=== PATIENT | female | born 1955 | race Caucasian/White ===

== ENCOUNTER 2019-12-31 04:07 | Inpatient (IN) | payer MEDICARE, SELFPAY ==
[2019-12-31] VITALS (14 sets, daily range): BP systolic 95–113; BP diastolic 52–66; PULSE 63–89; RESP 18–26; TEMP 36.2–38.1; O2SAT 82–100; BMI 30.5
--- NOTE | ~2019-12-31 | XR_ITS ---
EXAMINATION: XR chest 1V portable DATE: 01/01/2020 08:44 INDICATION: Shortness of breath. COVID-19 pneumonia. TECHNIQUE: A single frontal view of the chest was obtained. COMPARISON: Chest single view 12/31/2019 FINDINGS: There are patchy airspace opacities in all lung zones with a lower lung predominance. A guillermo cified right lung nodule is consistent with old granulomatous disease. No pleural effusion or pneumot horax. The heart size is normal. IMPRESSION: 1. Diffuse lung disease with worsening in right upper lung zone, consistent with pneumonia. Reviewed, dictated and finalized at location A. IMPRESSION: 1. Diffuse lung disease with worsening in right upper lung zone, consistent wit h pneumonia.
--- NOTE | ~2019-12-31 | XR_ITS ---
XR chest 1V portable DATE: 01/04/2020 05:48 INDICATION: Covid 19 pneumonia TECHNIQUE: Portable AP chest on 01/04/2020 at 0522 hours COMPARISON: 01/01/2020 portable AP chest at 0840 hours FINDINGS: There are patchy infiltrates in the mid and particularly lower lung zones, right greater th an left, mildly increased since 01/01/2020. Normal heart size. Aortic calcification and unfolding. IMPRESSION: Mild increased patchy bilateral primarily mid and lower lung infiltrates since 01/01/2020 Reviewed, dictated and finalized at location A. IMPRESSION: Mild increased patchy bilateral primarily mid and lower lung infilt rates since 01/01/2020
--- NOTE | ~2019-12-31 | XR_ITS ---
XR chest 1V portable DATE: 12/31/2019 04:47 INDICATION: Cough, fever TECHNIQUE: Portable AP chest on 12/31/2019 at 0447 hours COMPARISON: None FINDINGS: Heart size is normal. There are mild patchy infiltrates in the mid and lower lung zones. No pleural effusion. Pulmonary vascularity is within normal range. No pneumothorax. There is aortic arch calcification and mild aortic unfolding. No hilar or mediastinal enlargement. Diffuse osteopenia. IMPRESSION: Mild patchy infiltrate in the mid and lower lung zones Reviewed, dictated and finalized at location A.
--- NOTE | 2019-12-31 04:29 | ECG_ITS ---
Measurements Intervals [place] Rate: 72 P: 0 CO: 151 QRS: 30 QRSD: 110 T: -74 QT: 341 QTc: 374 Interpretive Statements SINUS RHYTHM NONSPECIFIC ST & T-WAVE ABNORMALITY- DIFFUSE LEADS BASELINE ARTIFACT- I, II, AVR, AVL, AVF, V1, V4-V6 BORDERLINE ECG Electronically Signed On 12-31-2019 7:06:37 CDT by Iron Guillen D.O.
[2019-12-31 04:47] LABS: Hematocrit 39.5 % (37.0-47.0); Hemoglobin 13.5 g/dL (12.0-15.0); Immature Granulocyte Absolute 0.04 K/mm3 (0.00-0.031); Immature Granulocyte Percent A 0.5 % (0-0.5); Lymphocytes Absolute Auto 0.77 K/mm3 (0.9-3.2); Mean Corpuscular HGB Conc 34.2 g/dl (32-36); Mean Corpuscular Hemoglobin 28.8 pg (26-34); Mean Corpuscular Volume 84.4 fl (80-100); Mean Platelet Volume 10.8 fl (7.4-10.4); Monocytes Absolute Auto 0.3 K/mm3 (0.1-0.6); Monocytes Percent Auto 4.3 % (2.6-8.5); Neutrophils Absolute Auto 6.6 K/mm3 (1.3-6.7); Neutrophils Percent Auto 85.2 % (45.5-73.1); Platelet Count Result 151 k/mm3 (150-375); Red Blood Count 4.68 M/mm3 (4.2-5.4); Red Cell Distribution Width 13.8 % (11.5-14.5); White Blood Count 7.7 K/mm3 (4.5-10.0)
[2019-12-31] MEDS: SODIUM CHLORIDE 0.9% IV 1,000 ML 999 ML IV CONT ×2 (04:53→06:04)
[2019-12-31 04:59] LABS: INR 1.1; Prothrombin Time 14.1 Seconds (11.1-14.7)
[2019-12-31 05:00] LABS: Partial Thromboplastin Time 34.9 SECONDS (22.3-36.8)
--- NOTE | 2019-12-31 05:08 | PC.NURSE ---
Pt. o2 dropped to 89% on RA. This RN placed pt. on 2L nc. ERP notified.
--- NOTE | 2019-12-31 05:10 | ED.FEVER ---
HPI - Fever General Chief Complaint: Fever Stated Complaint: fever,weakness, fatigue Time Seen by Provider: 12/31/19 04:26 Source: RN notes reviewed History of Present Illness HPI Narrative: Patient presents emergency department from home for multiple complaints. Patient states she began to feel ill on 12/21/2019. She states she is had a fever up to 101 Fahrenheit has been associated with dry heaves and diarrhea. She states she has had a mild cough has been nonproductive. She denies having any rhinorrhea sore throat chest pain shortness of breath abdominal pain or any other symptoms. Patient states that her tested positive for COVID-19 approximately 1 week ago. Denies any other symptoms at this time Related Data Home Medications Medication Instructions Recorded Confirmed citalopram mg 12/31/19 indapamide mg 12/31/19 Allergies Allergy/AdvReac Type Severity Reaction Status Date / Time erythromycin base Allergy Unknown SICK TO Verified 12/31/19 04:14 STOMACH Review of Systems Review of Systems: Narrative: Gen.: See HPI Eyes: Denies eye pain or visual change ENT: Denies congestion Respiratory: Denies shortness of breath reports cough CV: Denies chest pain or palpitations GI: Denies abdominal pain reports nausea vomiting diarrhea Musculoskeletal: Denies back pain or muscle pain Neuro: Denies numbness, tingling, reports weakness Skin: Denies rash Except as documented, all other systems reviewed and negative [facility] Past Medical History Medical History (Updated 12/31/19 @ 05:33 by Abilio Bae DO) Hypertension Social History Social History (Updated 12/31/19 @ 05:29 by Abilio Bae DO) Smoking status: Never smoker Exam Narrative: Exam Narrative: APPEARANCE: No acute distress, nontoxic, resting in bed EYES: EOMI HEENT: Normocephalic, atraumatic, OMM RESPIRATORY: No respiratory distress crackles bilateral lung bases no wheezing or rales CARDIOVASCULAR: Regular rate and rhythm without murmurs rubs or gallops. ABDOMINAL: Soft, nontender, nondistended, no rebound or guarding MUSCULOSKELETAl: Moves all extremities. No clubbing, cyanosis or edema. NEURO: Awake and alert. Following commands, speech normal, no focal deficits SKIN:: Warm, dry. No rashes lesions or abrasions PSYCHIATRIC: Normal affect/mood, Course Vital Signs Vital signs: Vital Signs Temperature 97.2 F L 12/31/19 04:11 Pulse Rate 75 12/31/19 04:11 Respiratory Rate 20 12/31/19 04:11 Blood Pressure 101/59 L 12/31/19 04:11 Pulse Oximetry 94 12/31/19 04:11 Temperature 97.2 F L 12/31/19 04:11 Pulse Rate 69 12/31/19 05:27 Respiratory Rate 21 H 12/31/19 05:27 Blood Pressure 99/52 L 12/31/19 05:27 Pulse Oximetry 95 12/31/19 05:27 MDM - Fever Lab Data Result diagrams: 12/31/19 04:38 12/31/19 04:38 Labs: Lab Results 12/31/19 12/31/19 12/31/19 Range/Units 04:38 04:38 04:38 WBC 7.7 (4.5-10.0) K/mm3 RBC 4.68 (4.2-5.4) M/mm3 Hgb 13.5 (12.0-15.0) g/dL Hct 39.5 (37.0-47.0) % MCV 84.4 (80-100) fl MCH 28.8 (26-34) pg MCHC 34.2 (32-36) g/dl RDW 13.8 (11.5-14.5) % Plt Count 151 (150-375) k/mm3 MPV 10.8 H (7.4-10.4) fl Immature Gran % (Auto) 0.5 (0-0.5) % Neut % (Auto) 85.2 H (45.5-73.1) % Lymph % (Auto) 10.0 L (18.3-44.2) % [place] % (Auto) 4.3 (2.6-8.5) % Eos % (Auto) 0.0 (0-4.4) % Baso % (Auto) 0.0 L (0.2-1.2) % Lymph # (Auto) 0.77 L (0.9-3.2) K/mm3 [place] # (Auto) 0.3 (0.1-0.6) K/mm3 Eos # (Auto) 0.0 (0-0.3) K/mm3 Baso # (Auto) 0.0 (0.0-0.1) K/mm3 Abs Immat Gran (auto) 0.04 H (0.00-0.031) K/mm3 Absolute Neuts (auto) 6.6 (1.3-6.7) K/mm3 Absolute Nucleated RBC 0.0 (0.0-0.012) K/mm3 Nucleated RBC % 0.0 (0.0-0.2) % PT 14.1 (11.1-14.7) Seconds INR 1.1 APTT 34.9 (22.3-36.8) SECONDS Sodium 132 L (137-145) mmol/L Potassium
[2019-12-31 05:15] LABS: Add Urine Microscopic? YES; Appearance Urine Cloudy (Clear); Bacteria Urine Trace /hpf; Bilirubin Urine Negative (Negative); Blood Urine Negative (Negative); Color Urine Yellow (Yellow); Glucose Urine UA Negative (Negative); Hyaline Casts Urine 50+ /lpf; Ketones Urine Negative (Negative); Leukocyte Esterase Ur Negative LEU/UL (Negative); Mucus Urine Moderate /lpf; Nitrate Urine Negative (Negative); Protein Urine 2+ mg/dL (Negative); Specific Grav Ur 1.024 (1.001-1.035); Squamous Epithelial Cell Urine Occasional /hpf (Few)
[2019-12-31 05:20] LABS: Alanine Aminotransferase 52 U/L (4-35); Albumin Level 4.2 g/dL (3.5-5.1); Alkaline Phosphatase 118 U/L (38-126); Anion Gap 15 mmol/L (8-16); Aspartate Amino Transferase 106 U/L (14-36); Bilirubin,Total 0.7 mg/dL (0.2-1.3); Blood Urea Nitrogen 37 mg/dL (7-17); Calcium 9.3 mg/dL (8.4-10.2); Carbon Dioxide 27 mmol/L (22-30); Chloride 90 mmol/L (98-107); Estimated CRCL calculation 46 ml/min; Estimated Glomerular Filt Rate 50; Glucose 154 mg/dL (65-105); Potassium 2.1 mmol/L (3.4-5.0); Sodium 132 mmol/L (137-145)
--- NOTE | 2019-12-31 05:27 | PC.NURSE ---
Added on magnesium to the lab
[2019-12-31 05:29] LABS: Lactic Acid Reflex 1.8 mmol/L (0.7-2.1)
[2019-12-31] MEDS: POTASSIUM CHLORIDE 20 MEQ TABLET 40 MEQ PO ×4 (06:03→21:25)
[2019-12-31 06:08] LABS: Alveolar/Arterial O2 Gradient 100.7 mmHg; Base Excess ABG 1.5 mEq/l (+/-2.0); Fractional Inspired Oxygen 28 %; HCO3 ABG 23.5 mEq/l (22.0-26.0); Oxygen Content ABG 15.9 %vol (16.0-22.0); Oxygen Saturation ABG 94.7 % (95.0-100.0); Oxyhemoglobin 91.6 % THb (90.0-100.0); PCO2 ABG 29.5 mmHg (35.0-45.0); PO2 ABG 64.1 mmHg (80.0-100.0); PO2 FiO2 Ratio Arterial Blood 2.29 %; Total Hemoglobin 12.3 g/dL (12.0-18.0)
[2019-12-31 06:09] LABS: Device NASAL CANNULA; Site Drawn RIGHT BRACHIAL
--- NOTE | 2019-12-31 06:40 | PC.NURSE ---
This patient, Fallon Avilez, was admitted to 3 [facility] Surg Room 330-01. Patient/family oriented to hospital policies and general routines including ID bracelet, bed and alarms, visiting hours, pain management, procedures, bathroom and other care routines, personal items, smoking policy, room service/diet, and visiting hours. Information on how to activate the Rapid Response Team has been discussed. Patient/Family are encouraged to report perceived risks to care and to ask questions if they do not understand what they are told or what they should do.
[2019-12-31] MEDS: SODIUM CHLORIDE 0.9% IV 1,000 ML 80 ML IV CONT (08:25)
[2019-12-31 10:00] LABS: Anion Gap 11 mmol/L (8-16); Blood Urea Nitrogen 26 mg/dL (7-17); Calcium 7.8 mg/dL (8.4-10.2); Carbon Dioxide 25 mmol/L (22-30); Chloride 98 mmol/L (98-107); Estimated CRCL calculation 63 ml/min; Estimated Glomerular Filt Rate > 60; Glucose 216 mg/dL (65-105); Potassium 2.6 mmol/L (3.4-5.0); Sodium 134 mmol/L (137-145)
[2019-12-31 11:16] LABS: SARS-CoV-2 RNA PCR Positive
--- NOTE | 2019-12-31 13:15 | PM.IMHP ---
H&P: HPI History of Present Illness Date/Time: 12/31/19 13:15 Chief complaint: covid 19 suspected,hypokalemia,hypoxia,nausea and Narrative: Date of visit 1029. Fallon Avilez is a 64 year old hypertensive female who presented to the emergency room with complaints of malaise recurrent nausea and vomiting diarrhea. She had started having symptoms on the 16 and had temperature 101. Her had tested positive for COVID and had not really been ill. they think they contracted it from one of their employees. she has had no recent travel and has not eaten anything unusual or different. No hematochezia or hematemesis. She has never had a colonoscopy. she is not really had any abdominal pain. rare cough and no appetite but no but no real loss of taste or smell Review of Systems Review of Systems: Narrative: constitutional prior to present illness appetite had been good and she had purposely lost about 10 lb over the last 6 months eye no double vision or scotoma CV no chest pain or palpitation pulmonary no shortness breath wheezing minimal rare cough extremities no particular joint discomfort integument no skin breakdown rashes no dysuria no hematuria GI as per history of present illness neuropsych no seizures no syncope PMFSH Past Medical History Medical History (Updated 12/31/19 @ 13:26 by Fredi Campbell MD) Hypertension Family History Family History (Updated 12/31/19 @ 13:25 by Fredi Campbell MD) Father , at age 76 Acute myocardial infarction Mother , at age 84 with respiratory failure post rib fracture post fall No problems noted. Social History Social History (Updated 12/31/19 @ 13:26 by Fredi Campbell MD) Social History: lives with her and and as below never smoked and no occupational exposure 3 children living well Smoking status: Never smoker Second hand tobacco smoke exposure: No Alcohol intake: never Substance use: never Gender identity (if verbalized by the patient): Female Sexual Orientation (if Verbalized by the Patient): Straight or Heterosexual Spiritual care concerns: No Meds Home Medications and Allergies Home Medications Medication Instructions Recorded Confirmed Type citalopram 40 mg PO DAILY 12/31/19 12/31/19 History indapamide 2.5 mg PO DAILY 12/31/19 12/31/19 History Allergies Allergy/AdvReac Type Severity Reaction Status Date / Time erythromycin base Allergy Unknown SICK TO Verified 12/31/19 04:14 STOMACH Vital Signs Vital Signs - 24 hr 12/31/19 04:11 12/31/19 05:09 12/31/19 05:27 Temperature 36.2 C L Pulse Rate 75 69 Respiratory Rate 20 26 H 21 H Blood Pressure 101/59 L 99/52 L Pulse Oximetry 94 93 95 12/31/19 06:08 12/31/19 06:25 12/31/19 06:40 Temperature 36.7 C Pulse Rate 65 69 68 Respiratory Rate 22 H 24 H 20 Blood Pressure 99/66 L 106/53 L 95/65 L Pulse Oximetry 95 96 100 12/31/19 08:00 12/31/19 08:26 12/31/19 11:08 Temperature 36.3 C L Pulse Rate 71 68 Respiratory Rate 18 20 Blood Pressure 113/58 L Pulse Oximetry 92 100 93 12/31/19 12:00 Temperature 36.3 C L Pulse Rate 66 Respiratory Rate 20 Blood Pressure 105/53 L Pulse Oximetry 93 H&P: Results Labs Labs: Short CBC 12/31/19 Range/Units 04:38 WBC 7.7 (4.5-10.0) K/mm3 Hgb 13.5 (12.0-15.0) g/dL Hct 39.5 (37.0-47.0) % Plt Count 151 (150-375) k/mm3 [facility] 12/31/19 12/31/19 04:38 09:31 Sodium 132 L 134 L Potassium 2.1 L* 2.6 L* Chloride 90 L 98 Carbon Dioxide 27 25 BUN 37 H 26 H D Creatinine 1.10 H 0.80 Glucose 154 H 216 H Calcium 9.3 7.8 L Liver Function 12/31/19 Range/Units 04:38 Total Bilirubin 0.7 (0.2-1.3) mg/dL AST 106 H (14-36) U/L ALT 52 H (4-35) U/L Alkaline Phosphatase 118 (38-126) U/L Albumin 4.2 (3.5-5.1) g/dL Urine 12/31/19 Range/Units 05:00 Urine Color Y
[2019-12-31] MEDS: REMDESIVIR 200 MG/NS 250 ML 200 MG/250 ML BAG 250 MG IVPB (15:40)
[2019-12-31] MEDS: DEXAMETHASONE 2 MG TABLET 6 MG PO (15:40)
[2019-12-31 17:24] LABS: D Dimer 1.41 ug/mL (<0.48)
[2019-12-31 17:37] LABS: Anion Gap 9 mmol/L (8-16); Blood Urea Nitrogen 21 mg/dL (7-17); Calcium 8.3 mg/dL (8.4-10.2); Carbon Dioxide 28 mmol/L (22-30); Chloride 99 mmol/L (98-107); Estimated CRCL calculation 63 ml/min; Estimated Glomerular Filt Rate > 60; Glucose 114 mg/dL (65-105); Lactate Dehydrogenase 899 U/L (313-618); Potassium 2.9 mmol/L (3.4-5.0); Sodium 136 mmol/L (137-145)
[2019-12-31 17:51] LABS: CRP 18.1 mg/dL (<1.0)
[2019-12-31] MEDS: SODIUM CHLORIDE 0.9% IV 1,000 ML 40 ML IV CONT (19:27)
[2019-12-31] MEDS: ENOXAPARIN 40 MG/0.4 ML SYRINGE SUB-Q (21:25)
[2019-12-31] MEDS: ACETAMINOPHEN 325 MG TABLET 650 MG PO (22:38)
[2020-01-01] VITALS (8 sets, daily range): BP systolic 96–110; BP diastolic 42–57; PULSE 42–55; RESP 16–20; TEMP 35.9–37.2; O2SAT 90–95
[2020-01-01] MEDS: SODIUM CHLORIDE 0.9% IV 1,000 ML 40 ML IV CONT (00:56)
[2020-01-01 06:37] LABS: Hematocrit 34.2 % (37.0-47.0); Hemoglobin 11.5 g/dL (12.0-15.0); Immature Granulocyte Absolute 0.01 K/mm3 (0.00-0.031); Immature Granulocyte Percent A 0.2 % (0-0.5); Lymphocytes Absolute Auto 0.54 K/mm3 (0.9-3.2); Lymphocytes Percent Auto 12.9 % (18.3-44.2); Mean Corpuscular HGB Conc 33.6 g/dl (32-36); Mean Corpuscular Hemoglobin 28.8 pg (26-34); Mean Corpuscular Volume 85.7 fl (80-100); Mean Platelet Volume 11.1 fl (7.4-10.4); Monocytes Absolute Auto 0.3 K/mm3 (0.1-0.6); Neutrophils Absolute Auto 3.4 K/mm3 (1.3-6.7); Neutrophils Percent Auto 80.9 % (45.5-73.1); Platelet Count Result 122 k/mm3 (150-375); Red Blood Count 3.99 M/mm3 (4.2-5.4); Red Cell Distribution Width 14.4 % (11.5-14.5); White Blood Count 4.2 K/mm3 (4.5-10.0)
[2020-01-01 06:52] LABS: D Dimer 1.18 ug/mL (<0.48)
[2020-01-01 07:01] LABS: Alanine Aminotransferase 45 U/L (4-35); Albumin Level 3.1 g/dL (3.5-5.1); Alkaline Phosphatase 81 U/L (38-126); Anion Gap 8 mmol/L (8-16); Aspartate Amino Transferase 76 U/L (14-36); Bilirubin,Total 0.4 mg/dL (0.2-1.3); Blood Urea Nitrogen 22 mg/dL (7-17); Calcium 8.4 mg/dL (8.4-10.2); Carbon Dioxide 22 mmol/L (22-30); Chloride 108 mmol/L (98-107); Creatine Kinase 90 U/L (30-135); Estimated CRCL calculation 71 ml/min; Estimated Glomerular Filt Rate > 60; Glucose 153 mg/dL (65-105); Lactate Dehydrogenase 931 U/L (313-618); Potassium 3.8 mmol/L (3.4-5.0); Sodium 138 mmol/L (137-145)
[2020-01-01 08:33] LABS: CRP 15.7 mg/dL (<1.0)
[2020-01-01] MEDS: ENOXAPARIN 40 MG/0.4 ML SYRINGE SUB-Q ×2 (08:59→21:12)
[2020-01-01] MEDS: DEXAMETHASONE 2 MG TABLET 6 MG PO (09:00)
[2020-01-01] MEDS: CITALOPRAM HYDROBROMIDE 20 MG TABLET 40 MG PO (09:00)
--- NOTE | 2020-01-01 10:22 | PM.IMPN ---
Progress Note: A&P Assessment and Plan (1) Bacteremia: Code(s): R78.81 - Bacteremia Status: Acute Assessment and Plan: 1of2 BCx positive for gram positive cocci in anaerobic bottle. Add Vanco and Rocephin. Follow up on results. (2) Suspected COVID-19 virus infection: Code(s): Z20.828 - Contact with and (suspected) exposure to other viral communicable diseases Status: Acute Assessment and Plan: CXR showing mild patchy infiltrate in the mid and lower lung zones. She was hypoxic. COVID-19 swab positive. WBC and plt count decreased felt related to the viral illness. DDimer, CRP and ferritin lower but LDH worse. LFTs improving. Repeat CXR showng increase in RUL. Overall appears to be improving. Decadron and remdesivir Day 2. Wean O2 as tolerated. (3) Acute hypokalemia: Code(s): E87.6 - Hypokalemia Status: Acute Assessment and Plan: Potassium 2.6 on admission. Potassium better at 3.8. Continue to follow. (4) Nausea & vomiting: Code(s): R11.2 - Nausea with vomiting, unspecified Status: Acute Assessment and Plan: Thought secondary to COVID. Hydrated initially since she was dehydrated with BUN and creatinine falling. IV fluids stopped with the COVID diagnosis (5) Diarrhea: Code(s): R19.7 - Diarrhea, unspecified Status: Acute Assessment and Plan: Thought secondary to COVID and probably the etiology of the hypokalemia. Treated conservatively. Symptomatically better (6) Hypertension: Code(s): I10 - Essential (primary) hypertension Status: Acute Assessment and Plan: Patient's blood pressure was reviewed on 12/31 Blood pressure remains well controlled. Will continue to monitor (7) DVT prophylaxis: Code(s): Z29.9 - Encounter for prophylactic measures, unspecified Status: Acute Assessment and Plan: b.i.d. Lovenox with the COVID Subjective Date/time seen: 01/01/20 10:22 Interval history: Date of service 12/31 64yo female with HTN presented to the emergency room with complaints of malaise, recurrent nausea and vomiting, diarrhea and found to have COVID PNA. Assuming care. CHart reviewed. has tested postive for COVID as well. No further N/V. Toelrating clear liquid diet. No CP. No SOB but minimal YOUNG walking to the BR. Exam Narrative: Exam Narrative: Tm 100.5 98.2 96/52 49 18 93% 3L Gen - NARD lying semi-recumbent in bed Chest - inspiratory crackles bibasilar, nml RR CV - bradycardic, regular; HR 56 Abd - Soft, NT/ND, Positive BS Ext - No pedal edema Neuro - Alert and appropriate; [place] Psych - Nml mood and affect Skin - Warm and dry Objective Data Vital Signs Vital Signs: Vital Signs - 24 hr 12/31/19 11:08 12/31/19 12:00 12/31/19 13:43 Temperature 97.4 F L Pulse Rate 66 Respiratory Rate 20 22 H Blood Pressure 105/53 L Pulse Oximetry 93 93 88 L 12/31/19 16:00 12/31/19 20:00 12/31/19 22:38 Temperature 98.2 F 100.5 F H 100.5 F H Pulse Rate 89 73 Respiratory Rate 18 22 H Blood Pressure 107/52 L 104/55 L Pulse Oximetry 93 82 L 01/01/20 00:00 01/01/20 04:00 01/01/20 08:00 Temperature 98.9 F 97.4 F L 98.2 F Pulse Rate 52 L 46 L 49 L Respiratory Rate 20 20 18 Blood Pressure 100/56 L 105/56 L 96/52 L Pulse Oximetry 95 94 93 Intake/Output Intake/Output: Intake & Output 12/29/19 12/30/19 12/31/19 01/01/20 23:59 23:59 23:59 23:59 Intake Total 2150 1577 Output Total 1150 Balance 1000 1577 Meds/Results Medications: Active Medications Generic Name Dose Route Start Last Admin Trade Name Freq PRN Reason Stop Dose Admin Acetaminophen 650 mg 12/31/19 21:50 12/31/19 22:38 Acetaminophen 325 Mg Tablet PO 650 mg Q4H PRN Administration Fever or pain 1-3 Citalopram Hydrobromide 40 mg 01/01/20 09:00 01/01/20 09:00 Citalopram Hydrobromide 20 Mg Tablet PO 40 mg DAILY S
[2020-01-01] MEDS: REMDESIVIR 100 MG/NS 250 ML 100 MG/250 ML BAG 250 MG IVPB (14:14)
[2020-01-02] VITALS (9 sets, daily range): BP systolic 100–116; BP diastolic 51–61; PULSE 40–59; RESP 16–20; TEMP 36.1–36.9; O2SAT 91–96
[2020-01-02 06:26] LABS: Hematocrit 36.2 % (37.0-47.0); Immature Granulocyte Absolute 0.04 K/mm3 (0.00-0.031); Immature Granulocyte Percent A 0.5 % (0-0.5); Lymphocytes Absolute Auto 0.75 K/mm3 (0.9-3.2); Lymphocytes Percent Auto 9.2 % (18.3-44.2); Mean Corpuscular HGB Conc 33.1 g/dl (32-36); Mean Corpuscular Hemoglobin 28.8 pg (26-34); Mean Platelet Volume 11.4 fl (7.4-10.4); Monocytes Absolute Auto 0.4 K/mm3 (0.1-0.6); Neutrophils Percent Auto 85.3 % (45.5-73.1); Platelet Count Result 146 k/mm3 (150-375); Red Blood Count 4.16 M/mm3 (4.2-5.4); Red Cell Distribution Width 14.7 % (11.5-14.5); White Blood Count 8.2 K/mm3 (4.5-10.0)
[2020-01-02 06:45] LABS: Alanine Aminotransferase 49 U/L (4-35); Albumin Level 2.9 g/dL (3.5-5.1); Alkaline Phosphatase 78 U/L (38-126); Anion Gap 6 mmol/L (8-16); Aspartate Amino Transferase 70 U/L (14-36); Bilirubin,Total 0.4 mg/dL (0.2-1.3); Blood Urea Nitrogen 28 mg/dL (7-17); CRP 6.6 mg/dL (<1.0); Calcium 8.3 mg/dL (8.4-10.2); Carbon Dioxide 25 mmol/L (22-30); Chloride 107 mmol/L (98-107); Estimated CRCL calculation 82 ml/min; Estimated Glomerular Filt Rate > 60; Glucose 142 mg/dL (65-105); Potassium 3.5 mmol/L (3.4-5.0); Sodium 138 mmol/L (137-145)
[2020-01-02] MEDS: DEXAMETHASONE 2 MG TABLET 6 MG PO (09:02)
[2020-01-02] MEDS: CITALOPRAM HYDROBROMIDE 20 MG TABLET 40 MG PO (09:02)
[2020-01-02] MEDS: ENOXAPARIN 40 MG/0.4 ML SYRINGE SUB-Q ×2 (09:03→20:14)
[2020-01-02] MEDS: REMDESIVIR 100 MG/NS 250 ML 100 MG/250 ML BAG 250 MG IVPB (14:09)
--- NOTE | 2020-01-02 18:19 | PM.IMPN ---
Progress Note: A&P Assessment and Plan (1) Bacteremia: Code(s): R78.81 - Bacteremia Status: Acute Assessment and Plan: 1of2 BCx positive for gram positive cocci in anaerobic bottle so Vanco and Rocephin started 12/31. BCx growing Coag Negative Staph (1of2 bottles). Probably contaminate. Will stop abx and repeat BCx. (2) Suspected COVID-19 virus infection: Code(s): Z20.828 - Contact with and (suspected) exposure to other viral communicable diseases Status: Acute Assessment and Plan: CXR showing mild patchy infiltrate in the mid and lower lung zones. She was hypoxic. COVID-19 swab positive. WBC and plt count decreased felt related to the viral illness. LFTs, DDimer, CRP, LDH and ferritin elevated. Started on Decadron and remdesivir. Ferritin and DDimer better yesterday. CRP trending down today. WBC normal and plt count improving. LFTs mostly improving. Continue Decadron and remdesivir Day 3. Wean O2 as tolerated. (3) Acute hypokalemia: Code(s): E87.6 - Hypokalemia Status: Acute Assessment and Plan: Potassium 2.6 on admission. Potassium better at 3.5. Continue to follow. (4) Nausea & vomiting: Code(s): R11.2 - Nausea with vomiting, unspecified Status: Acute Assessment and Plan: Thought secondary to COVID. Hydrated initially since she was dehydrated with BUN and creatinine falling. IV fluids stopped with the COVID diagnosis. (5) Diarrhea: Code(s): R19.7 - Diarrhea, unspecified Status: Acute Assessment and Plan: Thought secondary to COVID and probably the etiology of the hypokalemia. Treated conservatively. Resolved (6) Hypertension: Code(s): I10 - Essential (primary) hypertension Status: Acute Assessment and Plan: Patient's blood pressure was reviewed on 01/01 Blood pressure remains well controlled. Will continue to monitor (7) DVT prophylaxis: Code(s): Z29.9 - Encounter for prophylactic measures, unspecified Status: Acute Assessment and Plan: b.i.d. Lovenox with the COVID (8) Bradycardia: Code(s): R00.1 - Bradycardia, unspecified Status: Acute Assessment and Plan: HR into the 40'a at times. She is asymptomatic. Nonspecific findings by EKG. Unclear if acute or chronic. Not on rate lowering agents. Remdesivir has been known to cause bradycardia (up to 22% in one study). Continue tele. Will check Echo. Replace potasium given the NSVT. Check Mag level. Subjective Date/time seen: 01/02/20 18:19 Interval history: Date of service 01/01 64yo female with HTN presented to the emergency room with complaints of malaise, recurrent nausea and vomiting, diarrhea and found to have COVID PNA. has tested positive for COVID as well. No CP. SOB better. No n/v. Eating okay. Cough but [employer]. Up walking in room. Exam Narrative: Exam Narrative: AF 98.5 116/61 48 16 94% 2L Gen - NARD lying semi-recumbent in bed Chest - diffuse inspiratory crackles. nml RR CV - bradycardic, regular; Tele showinbg NSVT 4-5 beats and bradycardia. Abd - Soft, NT/ND, Positive BS Ext - No pedal edema Psych - Nml mood and affect Skin - Warm and dry Objective Data Vital Signs Vital Signs: Vital Signs - 24 hr 01/01/20 19:49 01/01/20 20:00 01/02/20 00:00 Temperature 97.8 F 98.4 F Pulse Rate 52 L 53 L 43 L Respiratory Rate 18 20 Blood Pressure 110/50 L 110/57 L Pulse Oximetry 93 95 94 01/02/20 04:00 01/02/20 08:00 01/02/20 10:43 Temperature 98.1 F 96.9 F L Pulse Rate 54 L 40 L Respiratory Rate 18 18 Blood Pressure 100/53 L 103/51 L Pulse Oximetry 95 93 91 01/02/20 12:00 01/02/20 16:00 Temperature 97.8 F 98.5 F Pulse Rate 59 L 48 L Respiratory Rate 18 16 Blood Pressure 111/61 116/61 Pulse Oximetry 96 94 Intake/Output Intake/Output: Intake & Output 12/30/19 12/31/19 01/01/20 01/02/20 23:59 23:59 23
[2020-01-02] MEDS: POTASSIUM CHLORIDE 20 MEQ TABLET PO (20:14)
[2020-01-03] VITALS (10 sets, daily range): BP systolic 101–124; BP diastolic 48–61; PULSE 42–65; RESP 18–20; TEMP 36.4–36.8; O2SAT 93–99
--- NOTE | 2020-01-03 | ECHO_ITS ---
Patient Info Name: Fallon Avilez Age: 64 years : 1955 Gender: Female Ht: 64 in Wt: 176 lbs BSA: 1.92 m2 HR: 59 bpm BP: 124 / 50 mmHg Heart Rhythm: Sinus Rhythm Technical Quality: Good Exam Date: 01/03/2020 11:41 AM Exam Location: [facility] Pulmonary Patient Status: Inpatient Admit Date: 12/31/2019 Staff Ordering Physician: Fredo Esteves MD Ripper Operator: Ashutosh Lomas, RDCS, RT Attending Provider: Fredo Esteves MD Exam Type: CA echo doppler color flow Study Info Indications R00.1 - Bradycardia, unspecified Complete two-dimensional, color flow and Doppler transthoracic echocardiogram is performed. Summary 1. Complete two-dimensional, color flow and Doppler transthoracic echocardiogram is performed. 2. Normal left and right ventricular systolic function without wall motion abnormalities. 3. No valvular abnormalities. 4. Modest left atrial enlargement. Left Ventricle Left ventricular chamber dimension is normal. Left ventricular systolic function is normal, estimated at 55-60%. The left ventricular diastolic function is normal. Right Ventricle Right ventricular chamber dimension is normal. Left Atria Left atrial chamber dimension is mildly enlarged. Right Atria Right atrial chamber dimension is normal. Aortic Valve The aortic valve is normal. Pulmonic Valve The pulmonic valve is not well visualized. Mitral Valve The mitral valve has normal leaflets. Tricuspid Valve The tricuspid valve leaflets are normal. Pericardium/Pleural The pericardium appears normal. Aorta The aortic root size at the sinus of Valsalva is normal. Mitral Valve Name Value Normal MV Doppler MV Decel Teller 297 cm/s2 MV PHT 74 ms MV Area (PHT) 3.0 cm2 4.0-5.0 MV Diastolic Function MV E Peak Velocity 75 cm/s MV A Peak Velocity 69 cm/s MV E/A 1.1 MV Decel Time 254 ms MV Annular TDI MV E/e' (Septal) 9.6 <=8.0 MV E/e' (Lateral) 8.8 <=8.0 MV E/e' (Average) 9.2 Atria Name Value Normal LA Dimensions LA Volume (4C A-L) 38 ml LA Volume (BP A-L) 40 ml Report Signatures
[2020-01-03 07:09] LABS: INR 1.2; Prothrombin Time 14.9 Seconds (11.1-14.7)
[2020-01-03 07:10] LABS: Partial Thromboplastin Time 30.1 SECONDS (22.3-36.8)
[2020-01-03 08:08] LABS: Alanine Aminotransferase 131 U/L (4-35); Albumin Level 2.8 g/dL (3.5-5.1); Alkaline Phosphatase 76 U/L (38-126); Anion Gap 7 mmol/L (8-16); Aspartate Amino Transferase 126 U/L (14-36); Bilirubin,Total 0.4 mg/dL (0.2-1.3); Blood Urea Nitrogen 29 mg/dL (7-17); CRP 3.5 mg/dL (<1.0); Calcium 8.2 mg/dL (8.4-10.2); Carbon Dioxide 24 mmol/L (22-30); Chloride 106 mmol/L (98-107); Estimated CRCL calculation 71 ml/min; Estimated Glomerular Filt Rate > 60; Glucose 129 mg/dL (65-105); Magnesium 2.1 mg/dL (1.6-2.3); Potassium 3.8 mmol/L (3.4-5.0); Sodium 137 mmol/L (137-145)
[2020-01-03] MEDS: DEXAMETHASONE 2 MG TABLET 6 MG PO (08:17)
[2020-01-03] MEDS: ENOXAPARIN 40 MG/0.4 ML SYRINGE SUB-Q ×2 (08:17→20:21)
[2020-01-03] MEDS: CITALOPRAM HYDROBROMIDE 20 MG TABLET 40 MG PO (08:17)
[2020-01-03] MEDS: REMDESIVIR 100 MG/NS 250 ML 100 MG/250 ML BAG 250 MG IVPB (14:22)
--- NOTE | 2020-01-03 15:33 | PM.IMPN ---
Progress Note: A&P Assessment and Plan (1) Bacteremia: Code(s): R78.81 - Bacteremia Status: Acute Assessment and Plan: 1of2 BCx positive for gram positive cocci in anaerobic bottle so Vanco and Rocephin started 12/31. BCx growing Coag Negative Staph (1of2 bottles). Probably contaminate. Abx stopped. Follow up on repeat BCx. (2) Suspected COVID-19 virus infection: Code(s): Z20.828 - Contact with and (suspected) exposure to other viral communicable diseases Status: Acute Assessment and Plan: CXR showing mild patchy infiltrate in the mid and lower lung zones. She was hypoxic. COVID-19 swab positive. WBC and plt count decreased felt related to the viral illness. LFTs, DDimer, CRP, LDH and ferritin elevated. Started on Decadron and remdesivir. Ferritin and DDimer better. CRP trending down to 3.5 today. WBC normal and plt count improving yesterday. LFTs worse today. Continue Decadron and remdesivir Day 4. Wean O2 as tolerated. Follow LFTs, inflammatory markers. (3) Acute hypokalemia: Code(s): E87.6 - Hypokalemia Status: Acute Assessment and Plan: Potassium 2.6 on admission. Potassium better at 3.8. Continue to follow. (4) Nausea & vomiting: Code(s): R11.2 - Nausea with vomiting, unspecified Status: Acute Assessment and Plan: Thought secondary to COVID. Hydrated initially since she was dehydrated with BUN and creatinine falling. IV fluids stopped with the COVID diagnosis. (5) Diarrhea: Code(s): R19.7 - Diarrhea, unspecified Status: Acute Assessment and Plan: Thought secondary to COVID. Treated conservatively. Resolved. (6) Hypertension: Code(s): I10 - Essential (primary) hypertension Status: Acute Assessment and Plan: Patient's blood pressure was reviewed on 01/02 Blood pressure remains well controlled. Indapamide remains on hold. Will continue to monitor. (7) DVT prophylaxis: Code(s): Z29.9 - Encounter for prophylactic measures, unspecified Status: Acute Assessment and Plan: b.i.d. Lovenox with the COVID (8) Bradycardia: Code(s): R00.1 - Bradycardia, unspecified Status: Acute Assessment and Plan: HR into the 40'a at times. She is asymptomatic. Nonspecific findings by EKG. Echo pending. Unclear if acute or chronic. Not on rate lowering agents. Remdesivir has been known to cause bradycardia (up to 22% in one study). Continue tele. Subjective Date/time seen: 01/03/20 15:33 Interval history: Date of service 01/02 64yo female with HTN presented to the emergency room with complaints of malaise, recurrent nausea and vomiting, diarrhea and found to have COVID PNA. has tested positive for COVID as well. No CP or SOB. Some YOUNG but has not been out of bed much. Eating okay. Exam Narrative: Exam Narrative: AF 97.6 101/58 54 18 97% 2L Gen - NARD lying semi-recumbent in bed Chest - CTA bilaterally. CV - RRR S1/S2; Tele showing bradycardia and brief runs of atrial tach. Abd - Soft, NT/ND, Positive BS Ext - No pedal edema Psych - Nml mood and affect Skin - Warm and dry Objective Data Vital Signs Vital Signs: Vital Signs - 24 hr 01/02/20 16:00 01/02/20 20:00 01/02/20 20:48 Temperature 98.5 F Pulse Rate 48 L 57 L Respiratory Rate 16 Blood Pressure 116/61 Pulse Oximetry 94 92 01/02/20 20:53 01/03/20 00:00 01/03/20 01:35 Temperature 98.2 F 98.3 F Pulse Rate 50 L 42 L 51 L Respiratory Rate 20 20 Blood Pressure 105/60 124/50 L Pulse Oximetry 91 93 01/03/20 04:00 01/03/20 05:00 01/03/20 08:00 Temperature 97.5 F L Pulse Rate 55 L 54 L 50 L Respiratory Rate 20 Blood Pressure 118/51 L Pulse Oximetry 99 01/03/20 09:00 01/03/20 12:00 Temperature 97.6 F 97.6 F Pulse Rate 64 65 Respiratory Rate 18 18 Blood Pressure 113/61 101/58 L Pulse Oximetry 93 97 Intake/Out
[2020-01-04] VITALS (15 sets, daily range): BP systolic 119–139; BP diastolic 58–66; PULSE 41–61; RESP 16–18; TEMP 36.3–36.9; O2SAT 87–96
[2020-01-04 06:24] LABS: Alanine Aminotransferase 137 U/L (4-35); Albumin Level 2.7 g/dL (3.5-5.1); Alkaline Phosphatase 73 U/L (38-126); Anion Gap 5 mmol/L (8-16); Aspartate Amino Transferase 98 U/L (14-36); Bilirubin,Total 0.4 mg/dL (0.2-1.3); Blood Urea Nitrogen 29 mg/dL (7-17); CRP 2.3 mg/dL (<1.0); Calcium 8.1 mg/dL (8.4-10.2); Carbon Dioxide 25 mmol/L (22-30); Chloride 107 mmol/L (98-107); Estimated CRCL calculation 82 ml/min; Estimated Glomerular Filt Rate > 60; Glucose 128 mg/dL (65-105); Potassium 3.8 mmol/L (3.4-5.0); Sodium 137 mmol/L (137-145)
[2020-01-04] MEDS: CITALOPRAM HYDROBROMIDE 20 MG TABLET 40 MG PO (08:12)
[2020-01-04] MEDS: DEXAMETHASONE 2 MG TABLET 6 MG PO (08:13)
[2020-01-04] MEDS: ENOXAPARIN 40 MG/0.4 ML SYRINGE SUB-Q ×2 (08:13→20:33)
--- NOTE | 2020-01-04 09:50 | PM.IMPN ---
Progress Note: A&P Assessment and Plan (1) Bacteremia: Code(s): R78.81 - Bacteremia Status: Acute Assessment and Plan: 1of2 BCx bottles positive for gram positive cocci in anaerobic bottle so Vanco and Rocephin started 12/31. BCx growing Coag Negative Staph (1of2 bottles). Probably contaminate. Abx stopped. Repeat BCx NGTD. Continue to monitor (2) Suspected COVID-19 virus infection: Code(s): Z20.828 - Contact with and (suspected) exposure to other viral communicable diseases Status: Acute Assessment and Plan: CXR showing mild patchy infiltrate in the mid and lower lung zones. She was hypoxic. COVID-19 swab positive on 12/30. WBC and plt count decreased felt related to the viral illness. LFTs, DDimer, CRP, LDH and ferritin elevated. Started on Decadron and remdesivir. Ferritin and CRP better today. WBC normal and plt count was improving. AST better but ALT about the same today. Continue Decadron Day 5 but stop remdesivir given the bradycardia and elevated LFTs. Wean O2 as tolerated. Follow LFTs, inflammatory markers. She feels very weak but still able to walk to the BR. Stefan have her OOB to the chair more. Start PT/OT. Evaluate for SNF vs HH. (3) Acute hypokalemia: Code(s): E87.6 - Hypokalemia Status: Acute Assessment and Plan: Potassium 2.6 on admission. Potassium better at 3.8. Continue to follow. (4) Nausea & vomiting: Code(s): R11.2 - Nausea with vomiting, unspecified Status: Acute Assessment and Plan: Thought secondary to COVID. Hydrated initially since she was dehydrated. Renal function improved so IV fluids stopped with the COVID diagnosis. (5) Diarrhea: Code(s): R19.7 - Diarrhea, unspecified Status: Acute Assessment and Plan: Thought secondary to COVID. Treated conservatively and symptoms have resolved. (6) Hypertension: Code(s): I10 - Essential (primary) hypertension Status: Acute Assessment and Plan: Patient's blood pressure was reviewed on 01/03 Blood pressure remains well controlled. Indapamide remains on hold. Will continue to monitor. (7) DVT prophylaxis: Code(s): Z29.9 - Encounter for prophylactic measures, unspecified Status: Acute Assessment and Plan: b.i.d. Lovenox with the COVID (8) Bradycardia: Code(s): R00.1 - Bradycardia, unspecified Status: Acute Assessment and Plan: HR into the 40's at times and dipping into the 30's. She is asymptomatic. Nonspecific findings by EKG. Echo normal. Unclear if acute or chronic. Not on rate lowering agents. Remdesivir has been known to cause bradycardia (up to 22% in one study). Continue tele. Stop Remdesivir. Check Apnea link tonight. Subjective Date/time seen: 01/04/20 09:50 Interval history: Date of service 01/03 64yo female with HTN presented to the emergency room with complaints of malaise, recurrent nausea and vomiting, diarrhea and found to have COVID PNA. has tested positive for COVID as well. No CP but slight lightheaded when standing. Lightheadedness only last 1-2 seconds she states. No change in her shortness of breath at rest. She is dyspneic with exertion. She has not been ambulating except to the bathroom. Otherwise she has been lying in bed. Eating okay. No nausea, vomiting or diarrhea. She does not have sleep apnea. Exam Narrative: Exam Narrative: AF 136/58 56 18 94% 2L Gen - NARD lying semi-recumbent in bed Chest - end inspiratory dry crackles mid and lower lung casey. nml RR CV - RRR S1/S2; Tele showing bradycardia to the 40's and occasional 30 Abd - Soft, NT/ND, Positive BS Ext - No pedal edema Psych - Nml mood but flat affect Skin - Warm and dry Objective Data Vital Signs Vital Signs: Vital Signs - 24 hr 01/03/20 12:00 01/03/20 16:00 01/03/20 17:00 Temperature 97.6 F 97.7 F Pulse Rate 65 54 L 53 L Respir
--- NOTE | 2020-01-04 11:49 | HOMEO2EVAL ---
Home Oxygen Evaluation RC: Home Oxygen (O2) Evaluation Start: 01/04/20 07:51 Freq: ONCE Status: Active Protocol: RPE Activity Type Activity Date Activity User E-Sign Co-Sign Detail Recorded Client Recorded Date Recorded By Document 01/04/20 10:45 [email or web address] [email or web address] 01/04/20 11:49 DJO Document 01/04/20 10:48 [email or web address] [email or web address] 01/04/20 11:49 DJO Document 01/04/20 10:50 [email or web address] [email or web address] 01/04/20 11:49 DJO Document 01/04/20 10:53 [email or web address] [email or web address] 01/04/20 11:49 DJO Document 01/04/20 11:00 [email or web address] [email or web address] 01/04/20 11:49 DJO 01/04/20 01/04/20 01/04/20 10:45 10:48 10:50 Home O2 Evaluation Test Phase Resting Resting Resting Oxygen Delivery Room Air Nasal Cannula Nasal Cannula Oxygen Flow Rate (L/min) 1 2 Pulse Oximetry (90-100 %) 87 L 87 L 92 Home Oxygen Evaluation Comments Treatment Charges O2 Evaluation 01/04/20 01/04/20 10:53 11:00 Home O2 Evaluation Test Phase Exercise Resting Oxygen Delivery Nasal Cannula Nasal Cannula Oxygen Flow Rate (L/min) 2 2 Pulse Oximetry (90-100 %) 90 92 Home Oxygen Evaluation Comments PT REQUIRES 2 L AT REST AND WITH ACTIVITY Treatment Charges
[2020-01-05] VITALS: BP 134/73; PULSE 41; PULSE 48; RESP 18; TEMP 36.6; O2SAT 94
[2020-01-05 04:00] VITALS: BP 129/84; PULSE 45; PULSE 54; RESP 18; TEMP 37.2; O2SAT 92
[2020-01-05 06:18] LABS: Hematocrit 36.1 % (37.0-47.0); Hemoglobin 11.9 g/dL (12.0-15.0); Mean Corpuscular Hemoglobin 28.4 pg (26-34); Mean Corpuscular Volume 86.2 fl (80-100); Mean Platelet Volume 10.6 fl (7.4-10.4); Platelet Count Result 216 k/mm3 (150-375); Red Blood Count 4.19 M/mm3 (4.2-5.4); Red Cell Distribution Width 14.4 % (11.5-14.5); White Blood Count 8.5 K/mm3 (4.5-10.0)
[2020-01-05 06:29] LABS: Alanine Aminotransferase 132 U/L (4-35); Albumin Level 2.6 g/dL (3.5-5.1); Alkaline Phosphatase 69 U/L (38-126); Anion Gap 4 mmol/L (8-16); Aspartate Amino Transferase 71 U/L (14-36); Bilirubin,Total 0.4 mg/dL (0.2-1.3); Blood Urea Nitrogen 24 mg/dL (7-17); CRP 1.5 mg/dL (<1.0); Carbon Dioxide 26 mmol/L (22-30); Chloride 105 mmol/L (98-107); Estimated CRCL calculation 82 ml/min; Estimated Glomerular Filt Rate > 60; Glucose 132 mg/dL (65-105); Potassium 3.8 mmol/L (3.4-5.0); Sodium 135 mmol/L (137-145)
[2020-01-05] MEDS: DEXAMETHASONE 2 MG TABLET 6 MG PO (07:44)
[2020-01-05] MEDS: CITALOPRAM HYDROBROMIDE 20 MG TABLET 40 MG PO (07:45)
[2020-01-05] MEDS: ENOXAPARIN 40 MG/0.4 ML SYRINGE SUB-Q (07:45)
[2020-01-05 08:00] VITALS: BP 133/86; PULSE 49; PULSE 52; RESP 16; TEMP 36.4; O2SAT 93
[2020-01-05 12:00] VITALS: BP 96/56; PULSE 66; PULSE 69; RESP 16; TEMP 36.4; O2SAT 98
--- NOTE | 2020-01-05 14:40 | PM.DS ---
DS: Admitting Diagnosis Admitting Diagnosis Admitting Diagnosis: covid 19 suspected,hypokalemia,hypoxia,nausea and DS: Discharge Diagnosis Discharge Diagnosis (1) Bacteremia: Code(s): R78.81 - Bacteremia Status: Acute Assessment and Plan: 1of2 BCx bottles drawn on 12/30 positive for gram positive cocci in anaerobic bottle so Vanco and Rocephin started 12/31. BCx growing Coag Negative Staph (1of2 bottles). Probably contaminate. Abx stopped. Repeat BCx 01/01 NGTD. (2) Suspected COVID-19 virus infection: Code(s): Z20.828 - Contact with and (suspected) exposure to other viral communicable diseases Status: Acute Assessment and Plan: CXR showing mild patchy infiltrate in the mid and lower lung zones on admission. She was hypoxic. COVID-19 swab positive on 12/30. WBC and plt count decreased felt related to COVID. LFTs, DDimer, CRP, LDH and ferritin elevated. Started on Decadron and remdesivir. Ferritin and CRP better yesterday. WBC and plt count normal. AST and ALT better as well. Received Decadron Day 6 but stopped remdesivir given the bradycardia and elevated LFTs. She had clinical improvement but still with O2 requirement at 2L. CXR 12/24 showing mild increased patchy bilateral primarily mid and lower lung infiltrates since 01/01/2020 but clinically felt more likely realted to atelectasis. Patient needed frequent motivational encouragement to be out of bed. Home O2 evaluation showing she needs 2L at rest and with exertion. She is up walking to the BR now. She feels comfortable with dicharge. (3) Acute hypokalemia: Code(s): E87.6 - Hypokalemia Status: Acute Assessment and Plan: Potassium 2.6 on admission. Potassium stable at 3.8. (4) Nausea & vomiting: Code(s): R11.2 - Nausea with vomiting, unspecified Status: Acute Assessment and Plan: Thought secondary to COVID. Hydrated initially since she was dehydrated. Renal function improved so IV fluids stopped with the COVID diagnosis. (5) Diarrhea: Code(s): R19.7 - Diarrhea, unspecified Status: Acute Assessment and Plan: Thought secondary to COVID. Treated conservatively and symptoms have resolved. (6) Hypertension: Code(s): I10 - Essential (primary) hypertension Status: Acute Assessment and Plan: Patient's blood pressure was monitored closely. Blood pressure remained well controlled. Indapamide remains on hold. (7) Bradycardia: Code(s): R00.1 - Bradycardia, unspecified Status: Acute Assessment and Plan: HR was in the 40's at times and dipping into the 30's. She was asymptomatic. Nonspecific findings by EKG. Echo normal. Apnea link normal. Unclear if acute or chronic. Not on rate lowering agents. Remdesivir has been known to cause bradycardia (up to 22% in one study) so this was stopped. Since being off the Remdesivir, the HR has improved. DS: Summary Hospital Course Reason for hospitalization: 64yo female presents with complaints of malaise, n/v and diarrhea. She was also hypoxic and found to be COVID positive. Please see H&P for detials. Hospital Course: As above Status at Discharge Cognitive/behavioral status at discharge: PATIENT STABLE AT DISCHARGE Time Spent with Patient Time attestation: Total time spent providing and/or coordinating discharge services:32 Time spent: Greater than 30 minutes Exam Narrative: Exam Narrative: AF 96/56 69 16 98% 2L Gen - NARD lying semi-recumbent in bed Chest - decreased BS bibasialr o/w distant BS CV - RRR S1/S2; Tele showing bradycardia to the 40's at times Abd - Soft, NT/ND, Positive BS Ext - No pedal edema Psych - Nml mood but flat affect Skin - Warm and dry DS: Data Data Completed and Pending Labs on day of discharge: Labs from last 24 hours 01/05/20 01/05/20 06:02 06:02 WBC 8.5 RBC 4.19 L Hgb 11.9 L Hct 36.1 L MCV 86.2 MCH
== END 2020-01-05 16:27 | disposition home or self-care (01) | DRG 178 ==
LOC: ANHED 05:47 → ANH3MEDSUR 06:10
PROVIDERS: Internal Medicine; Admitting Provider Family Medicine; Emergency Provider Emergency Medicine; PCP Family Medicine; Visit Provider Internal Medicine
DX: U07.1 COVID-19 (principal); J98.11 Atelectasis; R09.02 Hypoxemia; E86.0 Dehydration; I10 Essential (primary) hypertension; E87.6 Hypokalemia; R00.1 Bradycardia, unspecified; T50.995A Adverse effect of other drugs, medicaments and biological substances, initial encounter
CPT/HCPCS: 36415; 36600; 71045; 80048; 80053; 80076; 81001; 82550; 82728; 82805; 83605; 83615; 83735; 85025; 85027; 85380; 85610; 85730; 86140; 87040; 87077; 87186; 87635; 93005; 93306; 94618; 96361; 96374; 97161; 97165; 99285; A9270; C9803; G0378; J0696; J1650; J3370; J3480; J7030; J8540; U0003

== ENCOUNTER 2025-01-29 14:09 | Observation (INO) | payer MEDICARE, SELFPAY ==
--- NOTE | ~2025-01-29 | CT_ITS ---
EXAMINATION: CT abdomen pelvis w con DATE: 01/29/2025 16:27 INDICATION: Abdominal pain. TECHNIQUE: Computed tomography (CT) of the abdomen and pelvis was performed with 100 cc of Omnipaque 350 intravenous contrast. Automated exposure control and iterative reconstruction technique were employed. The dose-length product was 997.46 mGy-cm. COMPARISON: None. FINDINGS: Lung bases do not show any focal lesions. Mild hepatomegaly and borderline splenomegaly. Granulomatous lesions of the spleen. Large, partly calcified stone is noted impacting neck of the gallbladder, measuring 2.5 cm in diameter. Distended gallbladder measuring the length of 9 cm in width of 4.5 cm with diffuse edema of the gallbladder wall suggestive of acute cholecystitis. Pancreas shows no acute findings. Common bile duct measures 8 to 9 mm. Kidneys do not show calculi or obstruction. No free fluid or free air in the peritoneal cavity. Diverticulosis of distal colon. No pelvic mass or fluid collections. Degenerative disc disease of severe degree at L2-3 level with minimal retrolisthesis. IMPRESSION: 1. Large gallstone impacting neck of the gallbladder with distended gallbladder and edema of the gallbladder wall suggestive of acute cholecystitis. 2. Extrahepatic bile ducts are borderline in diameter in size. Pancreas shows no acute findings. 3. Diverticulosis of distal colon. 4. Severe degenerative disc disease at L2-3 level. Reviewed, dictated and finalized at location T. TEGIC [employer]NER IMPRESSION: 1. Large gallstone impacting neck of the gallbladder with distended gallbladder and edema of the gallbladder wall suggestive of acute cholecystitis. 2. Extrahepatic bile ducts are borderline in diameter in size. Pancreas shows n o acute findings. 3. Diverticulosis of distal colon. 4. Severe degenerative disc disease at L2-3 level.
[2025-01-29 14:23] VITALS: BP 122/72; PULSE 91; RESP 18; TEMP 36.4; O2SAT 98
--- NOTE | 2025-01-29 14:51 | ED.NAVMDI ---
HPI - Nausea/Vomiting/Diarrhea General Chief complaint: Nausea/Vomiting/Diarrhea <Lauren Chu PA-C - Last Filed: 01/29/25 18:23> Stated complaint: N/V/D DIZZINESS, EKG WAS ABNORMAL AT TOTAL ACCESS <Lauren Chu PA-C - Last Filed: 01/29/25 18:23> Time Seen by Provider: 01/29/25 14:51 <Lauren Chu PA-C - Last Filed: 01/29/25 18:23> Focused HPI: This is a 69 year old female that presents to the ER for nausea, vomiting, diarrhea. Ongoing over the last week. Abnormal EKG noted at urgent care. Denies chest pain or shortness of breath. GENERAL: Well-appearing, well-nourished, and in no acute distress. HEAD: Normocephalic, atraumatic. CHEST: Clear to auscultation. ?No respiratory distress. HEART: Regular rate and rhythm.? NEURO: ?Alert and oriented x3. Patient screened in triage and initial orders placed.? ?Additional care and disposition to be based upon?diagnostic testing and treatment. <Lauren Chu PA-C - Last Filed: 01/29/25 18:23> History of Present Illness HPI Narrative: Patient is a E 69-year-old female presents emergency department with chief complaint nausea vomiting diarrhea and abdominal pain patient was seen at [facility] they did an EKG and decided to send the patient over to the ER for possible cardiac testing. Patient states that she has discomfort throughout her abdomen reports he count feels weak and tired review reports night she has had some episodes where her heart has slowed down to the 50s <Fredo Soto MD - Last Filed: 01/29/25 17:13> Related Data Home medications: Home Medications ?Medication ?Instructions ?Recorded ?Confirmed ?Last Taken ?Type citalopram 40 mg tablet 40 mg PO DAILY 12/31/19 12/31/19 Unknown History indapamide 2.5 mg tablet 2.5 mg PO DAILY 12/31/19 12/31/19 Unknown History Held on 01/05/20. Instructions: Hold. Resume when okay with your doctor. <Lauren Chu PA-C - Last Filed: 01/29/25 18:23> Allergies/Adverse reactions: Allergies Allergy/AdvReac Type Severity Reaction Status Date / Time erythromycin base Allergy Unknown SICK TO Verified 01/29/25 14:10 STOMACH <Lauren Chu PA-C - Last Filed: 01/29/25 18:23> Review of Systems Review of Systems: A 10 system review of systems was completed on the patient and is negative except for what is stated in the HPI. Nursing and ancillary documentation was reviewed. <Fredo Soto MD - Last Filed: 01/29/25 17:13> PMFSH Past Medical History Medical History: Medical History (Updated 01/29/25 @ 17:04 by Fredo Soto MD) Hypertension <Lauren Chu PA-C - Last Filed: 01/29/25 18:23> Surgical History Surgical History: Surgical History (Updated 01/29/25 @ 17:46 by Cong Gupat DO) No pertinent past surgical history <Lauren Chu PA-C - Last Filed: 01/29/25 18:23> Family History Family History: Family History Father , at age 76 Acute myocardial infarction Mother , at age 84 with respiratory failure post rib fracture post fall No problems noted. <Lauren Chu PA-C - Last Filed: 01/29/25 18:23> Social History Social History: Social History Social History: lives with her and and as below never smoked and no occupational exposure 3 children living well Smoking status: Never smoker Second hand tobacco smoke exposure: No Alcohol intake: never Substance use: never Gender identity (if verbalized by the patient): Female Sexual Orientation (if Verbalized by the Patient): Straight or Heterosexual Spiritual care concerns: No <Lauren Chu PA-C - Last Filed: 01/29/25 18:23> Exam Narrative: GENERAL: Well-appearing, well-nourished, and in no acute distress. HEAD: Normocephalic, atraumatic. EYES: PERRLA and EOMI. ENT: Nares clear, no rhinorrhea or epistaxis. Mucous membranes moist. NECK: Supple. CHEST: Clear to auscultation. No respiratory distress. HEART: Regular rate and rhythm. No murmur heard. Normal peripheral pulses. ABDOMEN: Soft, diffuse mild tenderness, nondistended, normal active bowel sounds. EXTREMITIES: Normal range of motion. No edema. SKIN: Warm, dry, no rash. NEURO: No focal deficits. Alert and oriented x3. PSYCH: Normal mood and affect. <Fredo Soto MD - Last Filed: 01/29/25 17:13> Course Vital Signs Vital signs: Vital Signs Temperature 97.6 F 01/29/25 14:23 Pulse Rate 91 01/29/25 14:23 Respiratory Rate 18 01/29/25 14:23 Blood Pressure 122/72 01/29/25 14:23 Pulse Oximetry 98 01/29/25 14:23 Oxygen Delivery Room Air 01/29/25 14:23 Temperature 97.6 F 01/29/25 14:23 Pulse Rate 87 01/29/25 17:47 Respiratory Rate 14 01/29/25 17:47 Blood Pressure 120/54 L 01/29/25 17:47 Pulse Oximetry 98 01/29/25 17:47 Oxygen Delivery Room Air 01/29/25 14:23 <Lauren Chu PA-C - Last Filed: 01/29/25 18:23> Vital Signs Temperature 97.6 F 01/29/25 14:23 Pulse Rate 91 01/29/25 14:23 Respiratory Rate 18 01/29/25 14:23 Blood Pressure 122/72 01/29/25 14:23 Pulse Oximetry 98 01/29/25 14:23 Oxygen Delivery Room Air 01/29/25 14:23 Temperature 97.6 F 01/29/25 14:23 Pulse Rate 87 01/29/25 17:47 Respiratory Rate 14 01/29/25 17:47 Blood Pressure 120/54 L 01/29/25 17:47 Pulse Oximetry 98 01/29/25 17:47 Oxygen Delivery Room Air 01/29/25 14:23 <Fredo Soto MD - Last Filed: 01/29/25 17:13> MDM - Nausea/Vomiting/Diarrhea MDM Narrative Medical decision making narrative: Differential diagnosis includes UTI, intra-abdominal infection, diverticulitis, colitis, cholecystitis, choledocholithiasis ACS Laboratory studies were obtained on the patient showed white count of 14.4 electrolytes showed a BUN of 60 and creatinine 1.5 liver enzymes showed a normal bilirubin but AST and ALT were elevated at 224 and 398. Alk-phos was elevated at 330 CT scan of the abdomen pelvis showed 1. Large gallstone impacting neck of the gallbladder with distended gallbladder and edema of the gallbladder wall suggestive of acute cholecystitis. 2. Extrahepatic bile ducts are borderline in diameter in size. Pancreas shows no acute findings. 3. Diverticulosis of distal colon. 4. Severe degenerative disc disease at L2-3 level. The case was discussed with surgery who will consult on the patient recommended the patient be admitted to the hospitalist service Patient's potassium was started to be corrected in the emergency department patient received IV fluids and was started on Zosyn <Fredo Soto MD - Last Filed: 01/29/25 17:13> Lab Data Result diagrams: 01/29/25 15:22 01/29/25 15:22 <Lauren Chu PA-C - Last Filed: 01/29/25 18:23> Labs: Lab Results 01/29/25 01/29/25 01/29/25 Range/Units 15:22 16:40 16:40 WBC 14.4 H (4.5-10.0) K/mm3 RBC 4.22 (4.2-5.4) M/mm3 Hgb 12.5 (12.0-15.0) g/dL Hct 37.8 (37.0-47.0) % MCV 89.6 (80-100) fl MCH 29.6 (26-34) pg MCHC 33.1 (32-36) g/dl RDW 15.4 H (11.5-14.5) % Plt Count 289 (150-375) k/mm3 MPV 10.5 H (7.4-10.4) fl Immature Gran % (Auto) 0.6 H (0-0.5) % Neut % (Auto) 78.5 H (45.5-73.1) % Lymph % (Auto) 12.9 L (18.3-44.2) % [place] % (Auto) 6.7 (2.6-8.5) % Eos % (Auto) 1.0 (0-4.4) % Baso % (Auto) 0.3 (0.2-1.2) % Lymph # (Auto) 1.86 (0.9-3.2) K/mm3 Gentry # (Auto) 1.0 H (0.1-0.6) K/mm3 Eos # (Auto) 0.2 (0-0.3) K/mm3 Baso # (Auto) 0.0 (0.0-0.1) K/mm3 Abs Immat Gran (auto) 0.08 H (0.00-0.031) K/mm3 Absolute Neuts (auto) 11.3 H (1.3-6.7) K/mm3 Absolute Nucleated RBC 0.000 (0.0-0.012) K/mm3 Nucleated RBC % 0.0 (0.0-0.2) % Sodium 136 L (137-145) mmol/L Potassium 2.9 L (3.4-5.0) mmol/L Chloride 98 (98-107) mmol/L Carbon Dioxide 21 L (22-30) mmol/L Anion Gap 17 H (4-12) mmol/L BUN 60 H D (7-17) mg/dL Creatinine 1.15 H (0.7-1.0) mg/dL Estim Creat Clear Calc 45 ml/min Estimated GFR 47 L (59 - ) Glucose 112 H (65-110) mg/dL Lactic Acid 1.2 (0.7-2.0) mmol/L Calcium 10.3 H (8.4-10.2) mg/dL Magnesium 2.6 H Cancelled (1.6-2.3) mg/dL Total Bilirubin 0.8 (0.2-1.3) mg/dL AST 224 H (14-36) U/L ALT 398 H (6-35) U/L Alkaline Phosphatase 330 H (38-126) U/L Troponin I < 0.012 (0.000-0.034) ng/mL Total Protein 8.3 H (6.3-8.2) g/dL Albumin 4.5 (3.5-5.1) g/dL Lipase 254 (23-300) U/L Urine Color Yellow (Yellow) Urine Appearance Clear (Clear) Urine pH 5.0 (5.0-9.0) Ur Specific [place] 1.020 (1.001-1.035) Urine Protein Trace (Negative) mg/dL Urine Glucose (UA) Negative (Negative) mg/dL Urine Ketones Trace H (Negative) mg/dL Ur Blood (Man) Negative (Negative) Urine Nitrate Negative (Negative) Urine Bilirubin Negative (Negative) Urine Urobilinogen 1.0 (<2.0) mg/dL Add Ur Microanalysis Reviewed Leukocyte Esterase Rfl 1+ H (Negative) SADIA/UL Urine RBC 0-2 (0-2) /hpf Urine WBC 0-5 (0-3) /hpf Ur Squamous Epith Cells None seen (Few) /hpf Urine Bacteria None seen /hpf Urine Casts 3-5 <Lauren Chu PA-C - Last Filed: 01/29/25 18:23> Lab Results 01/29/25 01/29/25 01/29/25 Range/Units 15:22 16:40 16:40 WBC 14.4 H (4.5-10.0) K/mm3 RBC 4.22 (4.2-5.4) M/mm3 Hgb 12.5 (12.0-15.0) g/dL Hct 37.8 (37.0-47.0) % MCV 89.6 (80-100) fl MCH 29.6 (26-34) pg MCHC 33.1 (32-36) g/dl RDW 15.4 H (11.5-14.5) % Plt Count 289 (150-375) k/mm3 MPV 10.5 H (7.4-10.4) fl Immature Gran % (Auto) 0.6 H (0-0.5) % Neut % (Auto) 78.5 H (45.5-73.1) % Lymph % (Auto) 12.9 L (18.3-44.2) % Gentry % (Auto) 6.7 (2.6-8.5) % Eos % (Auto) 1.0 (0-4.4) % Baso % (Auto) 0.3 (0.2-1.2) % Lymph # (Auto) 1.86 (0.9-3.2) K/mm3 Gentry # (Auto) 1.0 H (0.1-0.6) K/mm3 Eos # (Auto) 0.2 (0-0.3) K/mm3 Baso # (Auto) 0.0 (0.0-0.1) K/mm3 Abs Immat Gran (auto) 0.08 H (0.00-0.031) K/mm3 Absolute Neuts (auto) 11.3 H (1.3-6.7) K/mm3 Absolute Nucleated RBC 0.000 (0.0-0.012) K/mm3 Nucleated RBC % 0.0 (0.0-0.2) % Sodium 136 L (137-145) mmol/L Potassium 2.9 L (3.4-5.0) mmol/L Chloride 98 (98-107) mmol/L Carbon Dioxide 21 L (22-30) mmol/L Anion Gap 17 H (4-12) mmol/L BUN 60 H D (7-17) mg/dL Creatinine 1.15 H (0.7-1.0) mg/dL Estim Creat Clear Calc 45 ml/min Estimated GFR 47 L (59 - ) Glucose 112 H (65-110) mg/dL Lactic Acid 1.2 (0.7-2.0) mmol/L Calcium 10.3 H (8.4-10.2) mg/dL Magnesium 2.6 H Cancelled (1.6-2.3) mg/dL Total Bilirubin 0.8 (0.2-1.3) mg/dL AST 224 H (14-36) U/L ALT 398 H (6-35) U/L Alkaline Phosphatase 330 H (38-126) U/L Troponin I < 0.012 (0.000-0.034) ng/mL Total Protein 8.3 H (6.3-8.2) g/dL Albumin 4.5 (3.5-5.1) g/dL Lipase 254 (23-300) U/L Urine Color Yellow (Yellow) Urine Appearance Clear (Clear) Urine pH 5.0 (5.0-9.0) Ur Specific [place] 1.020 (1.001-1.035) Urine Protein Trace (Negative) mg/dL Urine Glucose (UA) Negative (Negative) mg/dL Urine Ketones Trace H (Negative) mg/dL Ur Blood (Man) Negative (Negative) Urine Nitrate Negative (Negative) Urine Bilirubin Negative (Negative) Urine Urobilinogen 1.0 (<2.0) mg/dL Add Ur Microanalysis Reviewed Leukocyte Esterase Rfl 1+ H (Negative) SADIA/UL Urine RBC 0-2 (0-2) /hpf Urine WBC 0-5 (0-3) /hpf Ur Squamous Epith Cells None seen (Few) /hpf Urine Bacteria None seen /hpf Urine Casts 3-5 <Fredo Soto MD - Last Filed: 01/29/25 17:13> Imaging Data Radiologist's impression: ITS Impressions Abdomen/Pelvis CT 01/29/25 16:28 IMPRESSION: 1. Large gallstone impacting neck of the gallbladder with distended gallbladder and edema of the gallbladder wall suggestive of acute cholecystitis. 2. Extrahepatic bile ducts are borderline in diameter in size. Pancreas shows no acute findings. 3. Diverticulosis of distal colon. 4. Severe degenerative disc disease at L2-3 level. <Lauren Chu PA-C - Last Filed: 01/29/25 18:23> Discharge Plan Discharge Clinical Impression: Acute cholecystitis, Dehydration, Acute hypokalemia <Lauren Chu PA-C - Last Filed: 01/29/25 18:23> Patient Disposition: Still a Patient <Lauren Chu PA-C - Last Filed: 01/29/25 18:23> Condition: Stable <Lauren Chu PA-C - Last Filed: 01/29/25 18:23> Time of Disposition: 17:04 <Lauren Chu PA-C - Last Filed: 01/29/25 18:23> 17:04 <Fredo Soto MD - Last Filed: 01/29/25 17:13>
[2025-01-29 15:29] LABS: Hematocrit 37.8 % (37.0-47.0); Hemoglobin 12.5 g/dL (12.0-15.0); Immature Granulocyte Percent A 0.6 % (0-0.5); Lymphocytes Absolute Auto 1.86 K/mm3 (0.9-3.2); Mean Corpuscular HGB Conc 33.1 g/dl (32-36); Mean Corpuscular Hemoglobin 29.6 pg (26-34); Mean Corpuscular Volume 89.6 fl (80-100); Nucleated Red Blood Cells Absolute Auto 0.000 K/mm3 (0.0-0.012); Nucleated Red Blood Cells Perc 0.0 % (0.0-0.2); Platelet Count Result 289 k/mm3 (150-375); Red Blood Count 4.22 M/mm3 (4.2-5.4); White Blood Count 14.4 K/mm3 (4.5-10.0)
[2025-01-29 15:45] LABS: Alanine Aminotransferase 398 U/L (6-35); Albumin Level 4.5 g/dL (3.5-5.1); Alkaline Phosphatase 330 U/L (38-126); Anion Gap 17 mmol/L (4-12); Aspartate Amino Transferase 224 U/L (14-36); Bilirubin,Total 0.8 mg/dL (0.2-1.3); Blood Urea Nitrogen 60 mg/dL (7-17); Calcium 10.3 mg/dL (8.4-10.2); Carbon Dioxide 21 mmol/L (22-30); Chloride 98 mmol/L (98-107); Estimated CRCL calculation 45 ml/min; Estimated Glomerular Filt Rate 47; Glucose 112 mg/dL (65-110); Lipase 254 U/L (23-300); Potassium 2.9 mmol/L (3.4-5.0); Sodium 136 mmol/L (137-145); Total Protein 8.3 g/dL (6.3-8.2)
--- NOTE | 2025-01-29 16:01 | ECG_ITS ---
Test Date: 2025-01-29 16:13:16 Measurements Intervals [place] Rate: 84 P: 22 ID: [id number] QRS: -3 QRSD: 103 T: -2 QT: 305 QTc: 361 Interpretive Statements SINUS RHYTHM NONSPECIFIC T-WAVE ABNORMALITY BORDERLINE ECG No previous ECG available for comparison Electronically Signed On 01-29-2025 17:37:32 DIANETICIST by Nicolas Balderas M.D.
--- OUTSIDE RECORDS SUMMARY | 2025-01-29 16:02 | XMS_ITS | Clinical Summary ---
Author Organization [facility] [place] [address] [place] [address] Care Team Providers Care Commercial Hvac Service Technician Name Role Phone Lina Holden Primary Care Provider + Allergies Active Allergy Reactions Criticality Noted Date Comments Erythromycin Nausea & Vomiting Low 08/06/2024 Medications No known medications Active Problems Problem Noted Date Diagnosed Date Right elbow pain 08/06/2024 Closed nondisplaced fracture of neck of right ra dius 08/06/2024 Social History Tobacco Use Types Packs/Day Years Used Date Smoking Tobacco: Never Tobacco Cessation:Counseling Given: Not Answered Comments Unknown Sex and Gender Information Value Date Recorded Sex Assigned at Not on file 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 Gender Identity Not on file Sexual Orientation Not on file Plan of Treatment Health Maintenance Due Date Last Done Comments Breast Cancer Screening-Mammogram 1954 Colon Cancer Screening-Colonoscopy 1954 Depression Screening 1954 Fall Risk Assessment 1954 Hepatitis C Screening 1954 Osteoporosis Screening-Bone Density Scan 1954 Zoster Vaccine (1 of 2) 2004 Well Visit 65+ 06/20/2019 Influenza Vaccine (#1) 2024 DTaP/Tdap/Td Vaccine (2 - Td or Tdap) 09/28/2032 Hepatitis B Screening Completed 10/04/2011 Pneumococcal vaccine 65+ Completed 04/13/2023 Insurance MEDICARE MEDICARE Care Teams Commercial Hvac Service Technician Relationship Specialty Start Date End Date Lina Holden PA PCP - General Physician Auto Wash Buffer 08/06/24
--- OUTSIDE RECORDS SUMMARY | 2025-01-29 16:02 | XMS_ITS | Continuity of Care Document ---
Author Organization [facility] Address [address] [place] [address] Care Team Providers Care Home Health Aid Name Role Phone VALERIA PEARL Primary Care Provider Assessment No assessment recorded. Plan of Treatment Reminders Order Date Submit Date Provider Last Modified By Organization Details Last Modified Time Details Appointments None recorded. Lab CMP, serum or plasma 2024 025 [facility], [address], [place], [address], 5 10:13:03 CBC w/ auto diff 2024 025 [facility], [address], [place], [address], 5 10:13:06 HbA1c (hemoglobin A1c), blood 2024 025 [facility], [address], [place], [address], 5 10:13:05 lipid panel, serum or plasma 2024 025 [facility], [address], [place], [address], 5 10:13:02 Referral None recorded. Procedures None recorded. Surgeries None recorded. Imaging MAMMO, screening, bilateral 2024 025 [facility], [address], [place], [address], 16:10:01 DEXA, axial skeleton + vertebral fracture assessment 2024 025 [facility]), [address], [place], [address], 16:10:01 Medication Orders None recorded. Patient TargetsNo targets recorded. Patient Instructions Encounter Date Encounter Id Patient Instructions Last Modified By Organization Details Last Modified Time 11/01/2024 [id number] A healthy lifestyle: care instructions [email or web address] Not available 11/01/2024 09:24:57 Reason for Referral None Reported. Results Created Date Observation Date Name Description Value Unit Range Abnormal Flag Note LastModifiedBy Organization Detail LastModifiedTime 11/02/1911/02/2024 LIPID PANEL WITH LDL/H DL RATIO cholesterol, total 160 mg/dL 100-19 9 Not Available [facility] ([facility]) [address] [place], [address], 11/02/2024 10:13:02 11/02/1911/02/2024 LIPID PANEL WITH LDL/H DL RATIO triglyceride s 116 mg/dL 0-149 Not Available [facility] ([facility]) [address] [place], [address], 11/02/2024 10:13:02 11/02/1911/02/2024 LIPID PANEL WITH LDL/H DL RATIO HDL cholesterol 57 mg/dL >39 Not Available [facility] ([facility]) [address] [place], [address], 11/02/2024 10:13:02 11/02/19 25 11/02/2024 LIPID PANEL WITH LDL/H DL RATIO VLDL cholesterol guillermo 21 mg/dL 5-40 Not Available [facility] ([facility]) [address] [place], [address], 11/02/2024 10:13:02 11/02/19 25 11/02/2024 LIPID PANEL WITH LDL/H DL RATIO LDL chol calc ([facility]) 82 mg/dL 0-99 Not Available [facility] ([facility]) [address] [facility], [place], [address], 11/02/2024 10:13:02 11/02/19 25 11/02/2024 LIPID PANEL WITH LDL/H DL RATIO LDL/HDL ratio 1.4 ratio 0.0-3. 2 LDL/H DL Ratio Men Women 1/2 Avg.R isk 1.0 1.5 Avg.R isk 3.6 3.2 2X Avg.R isk 6.2 5.0 3X Avg.R isk 8.0 6.1 Not Available [facility] ([facility]) [address] [facility], [place], [address], 11/02/2024 10:13:02 11/02/19 25 11/01/2024 COMP. METAB OLIC PANEL (14) interpretati on: COMMEN T GFR estim ate at the follo wing level for >or=3 month s is class ified as follo ws: GFR WITH KIDNE Y DAMAG E WITHO UT KIDNE Y DAMAG E >or=9 0 Stage 1 Aide l 60-89 Stage 2 Decr eased GFR 30-59 Stage 3 Stage 3 15-29 Stage 4 Stage 4 <15 (or dialy sis) Stage 5 Stage 5 Estim ated GFR will over estim ate true GFR if serum creat inine is risin g as in acute renal failu re and will under estim ate true GFR if serum creat inine is decli li as in resol ving acute renal failu re. Addit ional infor puja dang may be found at [email or web address] [email or web address]. org. Not Available [facility] ([facility]) [address] [facility], [place], [address], 11/02/2024 10:13:03 11/02/19 25 11/02/2024 COMP. METAB OLIC PANEL (14) glucose 123 mg/dL 70-99 above high normal Not Available [facility] ([facility]) [address] [facility] [place], [address], 11/02/2024 10:13:03 11/02/19 25 11/02/2024 COMP. METAB OLIC PANEL (14) BUN 24 mg/dL 8-27 Not Available [facility] ([facility]) [address] [facility] [place], [address], 11/02/2024 10:13:03 11/02/19 25 11/02/2024 COMP. METAB OLIC PANEL (14) creatinine 0.75 mg/dL 0.57-1 .00 Not Available [facility] ([facility]) [address] [facility] [place], [address], 11/02/2024 10:13:03 11/02/19 25 11/02/2024 COMP. METAB OLIC PANEL (14) eGFR 86 mL/mi n/1.7 3 >59 Not Available [facility] ([facility]) [address] [facility] [place], [address], 11/02/2024 10:13:03 11/02/19 25 11/02/2024 COMP. METAB OLIC PANEL (14) BUN/creatini ne ratio 32 12-28 above high normal Not Available [facility] ([facility]) [address] [facility] [place], [address], 11/02/2024 10:13:03 11/02/19 25 11/02/2024 COMP. METAB OLIC PANEL (14) sodium 141 mmol/ L 134-14 4 Not Available [facility] ([facility]) [address] [facility] [place], [address], 11/02/2024 10:13:03 11/02/19 25 11/02/2024 COMP. METAB OLIC PANEL (14) potassium 3.5 mmol/ L 3.5-5. 2 Not Available [facility] ([facility]) [address] [place], [address], 11/02/2024 10:13:03 11/02/19 25 11/02/2024 COMP. METAB OLIC PANEL (14) chloride 102 mmol/ L 96-106 Not Available [facility] ([facility]) [address], [place], [address], 11/02/2024 10:13:03 11/02/19 25 11/02/2024 COMP. METAB OLIC PANEL (14) carbon dioxide, total 20 mmol/ L 20-29 Not Available [facility] ([facility]) [address], [place], [address], 11/02/2024 10:13:03 11/02/19 25 11/02/2024 COMP. METAB OLIC PANEL (14) calcium 10.3 mg/dL 8.7-10 .3 Not Available [facility] ([facility]) [address], [place], [address], 11/02/2024 10:13:03 11/02/19 25 11/02/2024 COMP. METAB OLIC PANEL (14) protein, total 7.3 g/dL 6.0-8. 5 Not Available [facility] ([facility]) [address], [place], [address], 11/02/2024 10:13:03 11/02/19 25 11/02/2024 COMP. METAB OLIC PANEL (14) albumin 4.7 g/dL 3.9-4. 9 Not Available [facility] ([facility]) [address], [place], [address], 11/02/2024 10:13:03 11/02/19 25 11/02/2024 COMP. METAB OLIC PANEL (14) globulin, total 2.6 g/dL 1.5-4. 5 Not Available [facility] ([facility]) [address] [facility], [place], [address], 11/02/2024 10:13:03 11/02/19 25 11/02/2024 COMP. METAB OLIC PANEL (14) bilirubin, total 0.5 mg/dL 0.0-1. 2 Not Available [facility] ([facility]) [address] [place], [address], 11/02/2024 10:13:03 11/02/19 25 11/02/2024 COMP. METAB OLIC PANEL (14) alkaline phosphatase 111 IU/L 44-121 Not Available [facility] ([facility]) [address] [place], [address], 11/02/2024 10:13:03 11/02/19 25 11/02/2024 COMP. METAB OLIC PANEL (14) AST (SGOT) 22 IU/L 0-40 Not Available [facility] ([facility]) [address] [place], [address], 11/02/2024 10:13:03 11/02/19 25 11/02/2024 COMP. METAB OLIC PANEL (14) ALT (SGPT) 23 IU/L 0-32 Not Available [facility] ([facility]) [address] [place], [address], 11/02/2024 10:13:03 11/02/19 25 11/02/2024 HEMOG LOBIN A1C hemoglobin A1C 5.7 % 4.8-5. 6 above high normal Predi abete s: 5.7 - 6.4 Diabe neli: >6.4 Glyce susan contr ol for adult s with diabe neli: <7.0 Not Available [facility] ([facility]) [address] [place], [address], 11/02/2024 10:13:05 11/02/19 25 11/02/2024 CBC WITH DIFFE RENTI AL/PL ATELE T WBC 6.8 x10e3 /uL 3.4-10 .8 Not Available [facility] ([facility]) [address] [place], [address], 11/02/2024 10:13:05 11/02/1911/02/2024 CBC WITH DIFFE RENTI AL/PL ATELE T RBC 4.46 x10e6 /uL 3.77-5 .28 Not Available [facility] ([facility]) [address] [place], [address], 11/02/2024 10:13:05 11/02/1911/02/2024 CBC WITH DIFFE RENTI AL/PL ATELE T hemoglobin 13.3 g/dL 11.1-1 5.9 Not Available [facility] ([facility]) [address] [place], [address], 11/02/2024 10:13:05 11/02/1911/02/2024 CBC WITH DIFFE RENTI AL/PL ATELE T hematocrit 40.9 % 34.0-4 6.6 Not Available [facility] ([facility]) [address] [place], [address], 11/02/2024 10:13:05 11/02/1911/02/2024 CBC WITH DIFFE RENTI AL/PL ATELE T MCV 92 fL 79-97 Not Available [facility] ([facility]) [address] [place], [address], 11/02/2024 10:13:05 11/02/1911/02/2024 CBC WITH DIFFE RENTI AL/PL ATELE T MCH 29.8 pg 26.6-3 3.0 Not Available [facility] ([facility]) [address] [place], [address], 11/02/2024 10:13:05 11/02/1911/02/2024 CBC WITH DIFFE RENTI AL/PL ATELE T MCHC 32.5 g/dL 31.5-3 5.7 Not Available [facility] ([facility]) [address] [place], [address], 11/02/2024 10:13:05 11/02/19 25 11/02/2024 CBC WITH DIFFE RENTI AL/PL ATELE T RDW 14.3 % 11.7-1 5.4 Not Available [facility] ([facility]) [address] [facility], [place], [address], 11/02/2024 10:13:05 11/02/19 25 11/02/2024 CBC WITH DIFFE RENTI AL/PL ATELE T platelets 178 x10e3 /uL 150-45 0 Not Available [facility] ([facility]) [address] [facility], [place], [address], 11/02/2024 10:13:05 11/02/19 25 11/02/2024 CBC WITH DIFFE RENTI AL/PL ATELE T neutrophils 64 % notest ab. Not Available [facility] ([facility]) [address] [facility], [place], [address], 11/02/2024 10:13:05 11/02/19 25 11/02/2024 CBC WITH DIFFE RENTI AL/PL ATELE T lymphs 24 % notest ab. Not Available [facility] ([facility]) [address] [facility], [place], [address], 11/02/2024 10:13:05 11/02/19 25 11/02/2024 CBC WITH DIFFE RENTI AL/PL ATELE T monocytes 9 % notest ab. Not Available [facility] ([facility]) [address] [facility], [place], [address], 11/02/2024 10:13:05 11/02/19 25 11/02/2024 CBC WITH DIFFE RENTI AL/PL ATELE T eos 2 % notest ab. Not Available [facility] ([facility]) [address] [facility], [place], [address], 11/02/2024 10:13:05 11/02/19 25 11/02/2024 CBC WITH DIFFE RENTI AL/PL ATELE T basos 1 % notest ab. Not Available [facility] ([facility]) [address] [place], [address], 11/02/2024 10:13:05 11/02/19 25 11/02/2024 CBC WITH DIFFE RENTI AL/PL ATELE T neutrophils (absolute) 4.4 x10e3 /uL 1.4-7. 0 Not Available [facility] ([facility]) [address] [place], [address], 11/02/2024 10:13:05 11/02/19 25 11/02/2024 CBC WITH DIFFE RENTI AL/PL ATELE T lymphs (absolute) 1.6 x10e3 /uL 0.7-3. 1 Not Available [facility] ([facility]) [address] [place], [address], 11/02/2024 10:13:05 11/02/19 25 11/02/2024 CBC WITH DIFFE RENTI AL/PL ATELE T monocytes(ab solute) 0.6 x10e3 /uL 0.1-0. 9 Not Available [facility] ([facility]) [address] [place], [address], 11/02/2024 10:13:05 11/02/19 25 11/02/2024 CBC WITH DIFFE RENTI AL/PL ATELE T eos (absolute) 0.1 x10e3 /uL 0.0-0. 4 Not Available [facility] ([facility]) [address] [place], [address], 11/02/2024 10:13:05 11/02/19 25 11/02/2024 CBC WITH DIFFE RENTI AL/PL ATELE T baso (absolute) 0.1 x10e3 /uL 0.0-0. 2 Not Available [facility] ([facility]) [address] [place], [address], 11/02/2024 10:13:05 11/02/19 25 11/02/2024 CBC WITH DIFFE RENTI AL/PL ATELE T immature granulocytes 0 % notest ab. Not Available [facility] ([facility]) [address] [facility], [place], [address], 11/02/2024 10:13:05 11/02/1911/02/2024 CBC WITH DIFFE RENTI AL/PL ATELE T immature grans (abs) 0.0 x10e3 /uL 0.0-0. 1 Not Available [facility] ([facility]) [address] [facility], [place], [address], 11/02/2024 10:13:05 Result Notes None recorded. Problems Name Problem SNOMED Code Status Onset Date Resolution Date Notes Provider Name and Address Organization Details Recorded Time Gout 77458246 Active 2021 CAROL BULLARD Attn: Regulo ledesma,[address], [place], [address], [place] [facility] 2 10:19:41 Edema of lower extremity 576581866 Active 2021 CAROL BULLARD Attn: Regulo g,[address], [place], [address], [place] [facility] 2 10:19:13 Lumbago with sciatica 892976999 Active 2022 CAROL BULLARD Attn: Minnain g,[address], [place], [address], [place] [facility] 3 12:09:44 Pain of left knee joint 7184392260331 07 Active 2022 CAROL BULLARD Attn: Regulo g,[address], [place], [address], [place] [facility] 3 12:09:51 Vaginal dryness 79103331 Active 2022 CAROL BULLARD Attn: Accountscar g,[address], [place], [address], [place] [facility] 3 15:18:34 Reduced libido 9570489 Active 2022 CAROL BULLARD Attn: Accountscar g,[address], [place], [address], [place] [facility] 3 15:18:36 Essential hypertensio n 46843748 Active 2023 CAROL BULLARD Attn: Accountin g,[address], [place], [address], [place] [facility] 4 09:36:04 Hyperlipide eric 41341927 Active 2023 CAROL BULLARD Attn: Accountscar g,[address], [place], [address], [place] [facility] 4 09:36:05 Problem Notes None recorded. Medical Equipment None Reported. Allergies Allergen ID Allergen Name Allergen Category Reaction Reaction Severity Criticality Documentation Date Start Date Code Code System Note Provider Name and Address Organization Details Recorded Time 20280505 erythromy arik medicatio n Not available Not available low 12/25/20242024 4053 RxNorm unrec ogniz ed react ion (text : Nause a & Vomit ing, code: 28065 000) [facility] Not Available nova - External Data Service - prod 5 16:03:27 Medications Name Sig Start Date Stop Date Status Note LastModified by Organization Details LastModified Time atorvastati n 20 mg tablet TAKE 1 TABLET BY MOUTH ONCE DAILY AT BEDTIME active Not Available Not Available No t Available citalopram 40 mg tablet TAKE 1 2 (ONE HALF) TABLET BY MOUTH ONCE DAILY 05/22 completed Not Available Not Available Not Available cetirizine 10 mg tablet TAKE 1 TABLET BY MOUTH ONCE DAILY 04/13 completed Not Available Not Available Not Available indapamide 2.5 mg tablet TAKE 1 TABLET BY MOUTH ONCE DAILY active Not Available Not Available No t Available citalopram 10 mg tablet TAKE 1 TABLET BY MOUTH ONCE DAILY active Not Available Not Available No t Available allopurinol 100 mg tablet Take 2 tablets every day by oral route for 30 days. 06/11 completed Not Available Not Available Not Available citalopram 20 mg tablet TAKE 1 TABLET BY MOUTH ONCE DAILY AT BEDTIME 11/22 completed Not Available Not Available Not Available benzonatate 100 mg capsule TAKE 1 CAPSULE BY MOUTH THREE TIMES DAILY FOR 6 DAYS 04/13 completed Not Available Not Available Not Available dexamethaso ne 2 mg tablet TAKE 3 TABLETS BY MOUTH ONCE DAILY FOR 4 DAYS AT 8AM 05/22 completed Not Available Not Available Not Available allopurinol 300 mg tablet TAKE 1 TABLET BY MOUTH ONCE DAILY active Not Available Not Available No t Available methylpredn isolone 4 mg tablets in a dose pack TAKE BY MOUTH DIRECTED ON INSIDE OF PACKAGE 12/03 completed Not Available Not Available Not Available lisinopril 40 mg tablet TAKE 1 TABLET BY MOUTH ONCE DAILY IN THE MORNING FOR HIGH BLOOD PRESSURE active Not Available Not Available No t Available Vitals Date Recorded Respiratory rate Provider Name a nd Address Organization Details Last Updated DateTime 11/01/2024 18 /min CAROL RODAS Attn: [address]ing,[address] [place], [address], [place] [facility] [place] 11/01/2024 10:11:00 Date Recorded Body height Body mass index (BMI) Body weight Oxygen saturation Heart rate Systolic And Diastolic Provider Name and Address Organization Details Last Updated DateTime 5 161.29 cm 36.3 kg/m2 75993.2 1 g 96 % 58 /min 117/78 mm[Hg] Brianne Wu MA [place] 5 09:07:47 Social History Question Answer Notes LastModified by Organizat ion Details LastModified Time Tobacco Smoking Status Never Smoker Brianne Wu MA null, [place] 05/22/2020 15:00:01 In The 14 Days Before Symptom Onset, Have You Had Close Contact With A Laboratory-confirm ed COVID-19 While That Case Was Ill? No Information n ot available 12/03/2020 In The 14 Days Before Symptom Onset, Have You Had Close Contact With A Person Who Is Under Investigation For COVID-19 While That Person Was Ill? No Information not available 12/03/2020 Have You Been To An Area Known To Be High Risk For COVID-19? No Information not available 12/03/2020 What Was The Date Of Your Most Recent Tobacco Screening? 11/01/2024 Information not available 11/01/2024 What Is Your Relationship Status? Information not available 04/13/2023 Are You Sexually Active? Yes Information not available 04/13/2023 Do You Have Smoke And Carbon Monoxide Detectors In Your Home? Yes Information not available 05/22/2020 Has Tobacco Cessation Counseling Been Provided? Yes Information not available 05/22/2020 On What Date Was Tobacco Cessation Counseling Provided? 11/01/2024 Information not available 11/01/2024 Sex: Female Functional Status Question Answer Note LastModified by Organization D etails LastModified Time Do you or have you ever used any other forms of tobacco or nicotine? No Information not available 05/22/2020 What is your level of alcohol consumption? None Information not available 11/01/2024 Mental Status None recorded. Family History Relationship Description Onset Age of this Age Resolved Age Notes LastModified by Organization Details LastModified Time Father Myocardial infarction Not available 05/22 14:59:06 Mother Hypertensive disorder Not available 2020 14:59:13 Notes:Cancer Medical History Condition Response Coronary Artery Disease N Other Y High Blood Pressure Y Atrial Fibrillation N Thyroid Problems N Kidney or Bladder Problems N GI Problems N Depression N COPD N Blood Clots N Have you had a mammogram in the last yea r? N Skin Problems N Anemia N Heart Attack ([place]) N Anxiety Disorder N Diabetes N Muscle, Joint, or Bone Problems N Arthritis N Seizures/Epilepsy N Acid Reflux (GERD) N Cancer N Stroke N Asthma N Allergies N ADHD N Substance Abuse N High Cholesterol N Hepatitis N Liver Disease N Schizophrenia N Headaches N Heart Failure N Osteoporosis N Gynecological History Statement/Question Response Date of Last Pap Smear Age at Menarche 11 Date of Last Mammogram Age at First Child 23 Obstetrics History GPAL:G 3 P 3 0 0 3 Type Value Multiple Births 0 Full Term 3 Induced 0 Spontaneous 0 Premature 0 Living 3 Ectopics 0 Total 3 Immunizations Vaccine Type Date Status Note Provider Lenny faria and Address Organization Details Recorded Time Hep B, adult 2 completed Not Available [facility] 11/01/2024 09:02:54 Tdap 3 completed CAROL BULLARD Attn: Accounting,[address] , [place], [address], [facility] - [facility] 09/28/2022 15:11:01 Pneumococcal conjugate PCV20, polysaccharide [id number] conjugate, adjuvant, PF 4 completed Brianne Wu MA null, [place] - [facility] 04/13/2023 11:45:53 Past Encounters Encounter ID Performer Location Encounter Start Date Encounter Closed Date Diagnosis/Indication Diagnosis SNOMED-CT Code Diagnosis ICD10 Code Diagnosis IMO Codes Diagnosis Note [id number] Milton Grace MD [facility] [address] [place] [address] 11/01/2024 09:01:24 11/01/2024 09:30:24 Essential hypertension 42682216 I10 15 yrs ago started indapamide trial off indapamide , advised pt check BP at home Hyperlipidemia 07554761 E78.5 on ator 20re-check today Gout 94392966 M10.9 controlled on allopurino l Recurrent major depression in full remission 39270515 F33.42 96756251 PHQ 6, on celexa since 2000tried to go off and felt weirdwill continue with current dose Screening for malignant neoplasm of breast 081089449 Z12.39 Screening for malignant neoplasm of colon 969864086 Z12.11 encouraged to complete kit at home Obese class II 483948857 1 97154 E66.812 E66.3 7630032307 Prediabetes 229234453 R7 3.03 817731 a1c 6.0 02/2024 Headache disorder 435850 009 G44.89 4632660 x40 yrsoccipit al L sidedsomew hat controlled on excedrin migrainebe lieves it is tension induceddec lines preventati ve or abortive medication at this time Postmenopausal state 764 40573 Z78.0 642188 DEXA ordered 02/2024, did not complete Health Concerns Section Related Observation LastModified by Organization Detai ls LastModified Time None Recorded Concern Status LastModified by Organization Details LastModified Time None Recorded Payers Encounter Date Sequence Insurance Name Policy Number Policy Vang Covered Member ID Vang Member ID Guarantor Name 11/01/2024 1 *SELF PAY* Teodoro Avilez 11/01/2024 1 [place] Fallon Avilez [id number] Fallon Avilez Notes Date Note Type Note Provider Name and Address Organization Details Recorded Time 11/01/2024 text/html ROS as noted in the HPI Patient presents to establish care as a new patient. Transfer from Valeria Pearl PA-C. History of hypertension, high cholesterol, headaches, and gout. States that she has been controlled on all meds. Pt has had headaches daily for the past 40 yrs, mild relief with excedrin migraine. Located on the back of her head. Believes it is tension headache. Unknown last mammogram. Pt has cologuard kit at home. Denies fever, chills, chest pain, SOB, n/v/d, abd pain, dizziness, or weakness. CAROL RODAS Attn: Accounting,[address], [place], [address], [facility] - [facility] 11/01/2024 10:12:44 OBGyn Episode No OBEpisode recorded.
--- OUTSIDE RECORDS SUMMARY | 2025-01-29 16:03 | XMS_ITS | Data Portability ---
Author Organization [facility] [place] Address [address] [facility] [place] [address] Care Team Providers Care Maintainer Operator Name Role Phone DAE, VALERIA Primary Care Provider Assessment Encounter Date Assessment Date Assessment LastModified by Organization Details LastModified Time 02/06/2024 02/06/2024 schedule mammogram (given [facility] number to call) , DEXA, pap, stool screen advised weight loss take otc vitamin D + calcium declines covid vaccinations and flu Not available 02/06/2024 09:36:28 Plan of Treatment Reminders Order Date Submit Date Provider Last Modified By Organization Details Last Modified Time Details Appointments None recorded. Lab CMP, serum or plasma 2024 025 [facility], [address], [place], [address], 10:13:03 CBC w/ auto diff 2024 025 [facility], [address], [place], [address], 5 10:13:06 HbA1c (hemoglobin A1c), blood 2024 025 [facility], [address], [place], [address], 5 10:13:05 lipid panel, serum or plasma 2024 025 [facility], [address], [place], [address], 5 10:13:02 HbA1c (hemoglobin A1c), blood 2023 024 [facility], [address], [address], [place], [address], 4 07:17:25 lipid panel, serum 2023 024 [facility], [address], [place], [place], [address], 4 07:17:22 CMP, serum or plasma 2023 024 [facility], [address], [address], [place], [address], 4 07:17:24 noninvasive colorectal cancer DNA + occult blood screening, QL, stool 2023 024 [place] [address] [facility], [address], [address], [place], [address], 4 09:34:19 uric acid, serum or plasma 2023 024 [facility], [address], [address], [place], [address], 4 22:07:31 fecal occult blood, immunoassay , stool 2023 024 [email or web address], [address], [address], [place], [address], 4 09:53:47 CBC w/ auto diff 2023 024 [facility], [address], [address], [place], [address], 4 22:07:31 lipid panel, serum 2023 024 [facility], [address], [address], [place], [address], 4 22:07:29 CMP, serum or plasma 2023 024 [facility], [address], [place], [address], 4 22:07:30 HbA1c (hemoglobin A1c), blood 2023 024 [email or web address], [address] [facility] [address] [address], [address], [place], [address], 4 09:53:46 vitamin D, 25-hydroxy, total, serum 2023 024 [email or web address], [address] [facility] [address], [address], [place], [address], 4 09:53:47 TSH + free T4, serum 2023 024 shruti [facility], [address] [facility] [address], [address], [place], [address], 4 09:53:47 Referral physical therapist referral [address] [facility], [address] [facility], [place], [address], 3 10:21:45 Procedures None recorded. Surgeries None recorded. Imaging MAMMO, screening, bilateral 2024 025 [facility], [address], [address] [address], [place], [address], 5 16:10:01 DEXA, axial skeleton + vertebral fracture assessment 2024 [facility]25 [facility] [address] [place] [address], [address], 5 16:10:01 DEXA, axial skeleton + vertebral fracture assessment [address] Department, [address] [place], [address], 4 08:26:27 DEXA, axial skeleton + vertebral fracture assessment 2023 024 [facility] Department, [address] [place], [address], 4 10:03:57 DEXA, axial skeleton + vertebral fracture assessment [address] (Imaging), [address] [place] [address], [address], 3 12:38:44 MAMMO, screening, digital, bilateral [address] (Imaging), [address] [place] [address], [address], 3 12:38:43 XR, knee, 3 view [address] (Imaging), [address] [place] [address], [address], 3 12:38:43 XR, lumbar spine [address] (Imaging), [address] [place] [address], [address], 3 12:38:44 Medication Orders allopurinol 300 mg tablet [email or web address], [address] [facility], [place], [address], 4 09:34:19 atorvastati n 20 mg tablet [address], [address] [place], [address], 4 09:34:19 citalopram 10 mg tablet 2023 024 [facility] [address], [facility] [place], [address], 4 09:35:45 benzonatate 100 mg capsule [address], [address] [facility], [place], [address], 4 10:02:22 cetirizine 10 mg tablet [address], [facility] [place], [address], 4 10:02:25 citalopram 10 mg tablet 2022 023 [facility] [address], [address] [place], [address], 3 12:30:16 Patient TargetsNo targets recorded. Patient Instructions Encounter Date Encounter Id Patient Instructions Last Modified By Organization Details Last Modified Time 09/28/2022 [id number] A healthy lifestyle: care instructions Not available 09/28/2022 15:19:46 02/06/2024 [id number] eating healthy foods: care instructions Not available 02/06/2024 09:35:53 learning about low-carbohydrate diets Not available 02/06/2024 09:35:53 A healthy lifestyle: care instructions Not available 02/06/2024 09:34:19 11/01/2024 [id number] A healthy lifestyle: care instructions [email or web address] Not available 11/01/2024 09:24:57 Reason for Referral Physical Therapist Referral for Lumbago with sciatica Referring Physician: Valeria Holden, Public Relations Consultant, Encounter Date: 09/28/2022 Results Created Date Observation Date Name Description Value Unit Range Abnormal Flag Note LastModifiedBy Organization Detail LastModifiedTime 04/13/19 24 04/13/2023 LIPID PANEL cholesterol, total 176 mg/dL 100-19 9 Not Available [facility] Department [address] [place] [address], [address], 04/13/2023 22:07:29 04/13/19 24 04/13/2023 LIPID PANEL triglyceride s 107 mg/dL 0-149 Not Available [facility] Department [address] [place] [address], [address], 04/13/2023 22:07:29 04/13/19 24 04/13/2023 LIPID PANEL HDL cholesterol 63 mg/dL 40-999 Not Available [facility] Department [address] [place] [address], [address], 04/13/2023 22:07:29 04/13/19 24 04/13/2023 LIPID PANEL VLDL cholesterol guillermo 21 mg/dL 5-40 Not Available [facility] Department [address] [place] [address], [address], 04/13/2023 22:07:29 04/13/19 24 04/13/2023 LIPID PANEL LDL chol calc (nih) 107 mg/dL 0-99 above high normal Not Available [facility] Department [address] [place], [address], 04/13/2023 22:07:29 04/13/19 24 04/13/2023 COMP. METAB OLIC PANEL (14) glucose 94 mg/dL 70-99 Not Available [facility] Department [address] [place], [address], 04/13/2023 22:07:30 04/13/19 24 04/13/2023 COMP. METAB OLIC PANEL (14) BUN 25 mg/dL 8-27 Not Available [facility] Department [address] [place], [address], 04/13/2023 22:07:30 04/13/19 24 04/13/2023 COMP. METAB OLIC PANEL (14) creatinine 0.74 mg/dL 0.76-1 .27 below low normal Not Available [facility] Department [address] [place] [address], [address], 04/13/2023 22:07:30 04/13/19 24 04/13/2023 COMP. METAB OLIC PANEL (14) eGFR 88 >=60 Units for eGFR value s are mL/mi n/1.7 3 The eGFR Calcu latio n has not been valid ated for patie nts under the age of 18. If test resul ts are displ ayed for a patie nt under the age of 18, disre kiran that value . Not Available [facility] Department [address] [place] [address], [address], 04/13/2023 22:07:30 04/13/19 24 04/13/2023 COMP. METAB OLIC PANEL (14) BUN/creatini ne ratio 34 10-28 above high normal Not Available [facility] Department [address] [place] [address], [address], 04/13/2023 22:07:30 04/13/19 24 04/13/2023 COMP. METAB OLIC PANEL (14) sodium 141 mmol/ L 134-14 4 Not Available [facility] Department [address] [place], [address], 04/13/2023 22:07:30 04/13/19 24 04/13/2023 COMP. METAB OLIC PANEL (14) potassium 3.7 mmol/ L 3.5-5. 2 Not Available [facility] Department [address] [place], [address], 04/13/2023 22:07:30 04/13/19 24 04/13/2023 COMP. METAB OLIC PANEL (14) chloride 102 mmol/ L 96-106 Not Available [facility] Department [address] [place], [address], 04/13/2023 22:07:30 04/13/19 24 04/13/2023 COMP. METAB OLIC PANEL (14) carbon dioxide, total 26 mmol/ L 20-29 Not Available [facility] Department [address] [place], [address], 04/13/2023 22:07:30 04/13/19 24 04/13/2023 COMP. METAB OLIC PANEL (14) calcium 10.1 mg/dL 8.7-10 .3 Not Available [facility] Department [address] [place] [address], [address], 04/13/2023 22:07:30 04/13/19 24 04/13/2023 COMP. METAB OLIC PANEL (14) protein, total 7.5 g/dL 6.0-8. 5 Not Available [facility] Department [address] [place], [address], 04/13/2023 22:07:30 04/13/19 24 04/13/2023 COMP. METAB OLIC PANEL (14) albumin 4.4 g/dL 3.8-4. 8 Not Available [facility] Department [address] [place], [address], 04/13/2023 22:07:30 04/13/19 24 04/13/2023 COMP. METAB OLIC PANEL (14) globulin, total 3.1 g/dL 1.5-4. 5 Not Available [facility] Department [address] [place], [address], 04/13/2023 22:07:30 04/13/19 24 04/13/2023 COMP. METAB OLIC PANEL (14) A/G ratio 1.0 1.2-2. 2 below low normal Not Available [facility] Department [address] [place], [address], 04/13/2023 22:07:30 04/13/19 24 04/13/2023 COMP. METAB OLIC PANEL (14) bilirubin, total 0.4 mg/dL 0.0-1. 2 Not Available [facility] Department [address] [place], [address], 04/13/2023 22:07:30 04/13/19 24 04/13/2023 COMP. METAB OLIC PANEL (14) alkaline phosphatase 107 IU/L 44-121 Not Available [facility] Department [address] [place], [address], 04/13/2023 22:07:30 04/13/19 24 04/13/2023 COMP. METAB OLIC PANEL (14) AST (SGOT) 24 IU/L 0-40 Not Available [facility] Department [address] [place], [address], 04/13/2023 22:07:30 04/13/19 24 04/13/2023 COMP. METAB OLIC PANEL (14) ALT (SGPT) 28 IU/L 0-32 Not Available [facility] Department [address] [place], [address], 04/13/2023 22:07:30 04/13/19 24 04/13/2023 URIC ACID uric acid 7.4 mg/dL 2.5-7. 1 above high normal Not Available [facility] Department [address] [place], [address], 04/13/2023 22:07:30 04/13/19 24 04/13/2023 CBC WITH DIFFE RENTI AL/PL ATELE T WBC 6.7 x10e3 /uL 3.4-10 .8 Not Available [facility] Department [address] [place], [address], 04/13/2023 22:07:31 04/13/19 24 04/13/2023 CBC WITH DIFFE RENTI AL/PL ATELE T RBC 4.24 x10e6 /uL 3.77-5 .28 Not Available [facility] Department [address] [place], [address], 04/13/2023 22:07:31 04/13/19 24 04/13/2023 CBC WITH DIFFE RENTI AL/PL ATELE T hemoglobin 12.4 g/dL 11.1-1 5.9 Not Available [facility] Department [address] [place], [address], 04/13/2023 22:07:31 04/13/19 24 04/13/2023 CBC WITH DIFFE RENTI AL/PL ATELE T hematocrit 39.2 % 34.0-4 6.6 Not Available [facility] Department [address] [place], [address], 04/13/2023 22:07:31 04/13/19 24 04/13/2023 CBC WITH DIFFE RENTI AL/PL ATELE T MCV 93 fL 79-97 Not Available [facility] Department [address] [place], [address], 04/13/2023 22:07:31 04/13/19 24 04/13/2023 CBC WITH DIFFE RENTI AL/PL ATELE T MCH 29.2 pg 26.6-3 3.0 Not Available [facility] Department [address] [place], [address], 04/13/2023 22:07:31 04/13/19 24 04/13/2023 CBC WITH DIFFE RENTI AL/PL ATELE T MCHC 31.6 g/dL 31.5-3 5.7 Not Available [facility] Department [address] [place], [address], 04/13/2023 22:07:31 04/13/19 24 04/13/2023 CBC WITH DIFFE RENTI AL/PL ATELE T RDW 14.8 % 11.5-1 4.5 above high normal Not Available [facility] Department [address] [place], [address], 04/13/2023 22:07:31 04/13/19 24 04/13/2023 CBC WITH DIFFE RENTI AL/PL ATELE T platelets 202 x10e3 /uL 150-45 0 Not Available [facility] Department [address] [place], [address], 04/13/2023 22:07:31 04/13/19 24 04/13/2023 CBC WITH DIFFE RENTI AL/PL ATELE T neutrophils 57 % notest b. Not Available [facility] Department [address] [place], [address], 04/13/2023 22:07:31 04/13/19 24 04/13/2023 CBC WITH DIFFE RENTI AL/PL ATELE T lymphs 31 % notest b. Not Available [facility] Department [address] [place], [address], 04/13/2023 22:07:31 04/13/19 24 04/13/2023 CBC WITH DIFFE RENTI AL/PL ATELE T monocytes 8 % notest b. Not Available [facility] Department [address] [place], [address], 04/13/2023 22:07:31 04/13/19 24 04/13/2023 CBC WITH DIFFE RENTI AL/PL ATELE T eos 3 % notest b. Not Available [facility] Department [address] [place], [address], 04/13/2023 22:07:31 04/13/19 24 04/13/2023 CBC WITH DIFFE RENTI AL/PL ATELE T basos 1 % notest b. Not Available [facility] Department [address] [place], [address], 04/13/2023 22:07:31 04/13/19 24 04/13/2023 CBC WITH DIFFE RENTI AL/PL ATELE T neutrophils (absolute) 3.8 x10e3 /uL 1.4-7. 0 Not Available [facility] Department [address] [place], [address], 04/13/2023 22:07:31 04/13/19 24 04/13/2023 CBC WITH DIFFE RENTI AL/PL ATELE T lymphs (absolute) 2.1 x10e3 /uL 0.7-3. 1 Not Available [facility] Department [address] [place], [address], 04/13/2023 22:07:31 04/13/19 24 04/13/2023 CBC WITH DIFFE RENTI AL/PL ATELE T monocytes(ab solute) 0.5 x10e3 /uL 0.1-0. 9 Not Available [facility] Department [address] [place], [address], 04/13/2023 22:07:31 04/13/19 24 04/13/2023 CBC WITH DIFFE RENTI AL/PL ATELE T eos (absolute) 0.2 x10e3 /uL 0.0-0. 4 Not Available [facility] Department [address] [place], [address], 04/13/2023 22:07:31 04/13/19 24 04/13/2023 CBC WITH DIFFE RENTI AL/PL ATELE T baso (absolute) 0.0 x10e3 /uL 0.0-0. 2 Not Available [facility] Department [address] [place], [address], 04/13/2023 22:07:31 04/13/19 24 04/13/2023 CBC WITH DIFFE RENTI AL/PL ATELE T immature granulocytes 0.3 % notest b. Not Available [facility] Department [address] [place], [address], 04/13/2023 22:07:31 04/13/19 24 04/13/2023 CBC WITH DIFFE RENTI AL/PL ATELE T immature grans (abs) 0.0 x10e3 /uL 0.0-0. 1 Not Available [facility] Department [address] [place], [address], 04/13/2023 22:07:31 04/13/19 24 04/13/2023 CBC WITH DIFFE RENTI AL/PL ATELE T NRBC 0 % 0-0 Not Available [facility] Department [address] [place], [address], 04/13/2023 22:07:31 02/06/20 24 02/07/2024 LIPID PANEL cholesterol, total 187 mg/dL 100-19 9 Not Available [facility] ([facility]) [address] [place], [address], 02/07/2024 07:17:22 02/06/20 24 02/07/2024 LIPID PANEL triglyceride s 151 mg/dL 0-149 above high normal Not Available [facility] ([facility]) [address] [place], [address], 02/07/2024 07:17:22 02/06/20 24 02/07/2024 LIPID PANEL HDL cholesterol 52 mg/dL >39 Not Available [facility]) [address] [place], [address], 02/07/2024 07:17:22 02/06/20 24 02/07/2024 LIPID PANEL VLDL cholesterol guillermo 26 mg/dL 5-40 Not Available [facility] ([facility]) [address] [place], [address], 02/07/2024 07:17:22 02/06/20 24 02/07/2024 LIPID PANEL LDL [facility] 109 mg/dL 0-99 above high normal Not Available [facility] ([facility]) [address] [place], [address], 02/07/2024 07:17:22 02/06/20 24 02/07/2024 COMP. METAB OLIC PANEL (14) glucose 126 mg/dL 70-99 above high normal Not Available [facility] ([facility]) [address] [place], [address], 02/07/2024 07:17:23 02/06/20 24 02/07/2024 COMP. METAB OLIC PANEL (14) BUN 16 mg/dL 8-27 Not Available [facility] ([facility]) [address] [place], [address], 02/07/2024 07:17:23 02/06/20 24 02/07/2024 COMP. METAB OLIC PANEL (14) creatinine 0.91 mg/dL 0.57-1 .00 Not Available [facility] ([facility]) [address] [place], [address], 02/07/2024 07:17:23 02/06/20 24 02/07/2024 COMP. METAB OLIC PANEL (14) eGFR 68 mL/mi n/1.7 3 >59 Not Available [facility] ([facility]) [address] [place], [address], 02/07/2024 07:17:23 02/06/20 24 02/07/2024 COMP. METAB OLIC PANEL (14) BUN/creatini ne ratio 18 12-28 Not Available [facility] ([facility]) [address] [place], [address], 02/07/2024 07:17:23 02/06/20 24 02/07/2024 COMP. METAB OLIC PANEL (14) sodium 141 mmol/ L 134-14 4 Not Available [facility] ([facility]) [address] [place], [address], 02/07/2024 07:17:23 02/06/20 24 02/07/2024 COMP. METAB OLIC PANEL (14) potassium 3.2 mmol/ L 3.5-5. 2 below low normal Not Available [facility] ([facility]) [address] [facility] [place], [address], 02/07/2024 07:17:23 02/06/20 24 02/07/2024 COMP. METAB OLIC PANEL (14) chloride 99 mmol/ L 96-106 Not Available [facility] ([facility]) [address] [facility], [address], 02/07/2024 07:17:23 02/06/20 24 02/07/2024 COMP. METAB OLIC PANEL (14) carbon dioxide, total 25 mmol/ L 20-29 Not Available [facility] ([facility]) [address] [facility], [address], 02/07/2024 07:17:23 02/06/20 24 02/07/2024 COMP. METAB OLIC PANEL (14) calcium 10.2 mg/dL 8.7-10 .3 Not Available [facility] ([facility]) [address] [facility] [place], [address], 02/07/2024 07:17:23 02/06/20 24 02/07/2024 COMP. METAB OLIC PANEL (14) protein, total 7.7 g/dL 6.0-8. 5 Not Available [facility] ([facility]) [address] [facility] [place], [address], 02/07/2024 07:17:23 02/06/20 24 02/07/2024 COMP. METAB OLIC PANEL (14) albumin 4.7 g/dL 3.9-4. 9 Not Available [facility] ([facility]) [address] [facility] [place], [address], 02/07/2024 07:17:23 02/06/20 24 02/07/2024 COMP. METAB OLIC PANEL (14) globulin, total 3.0 g/dL 1.5-4. 5 Not Available [facility] ([facility]) [address] [place], [address], 02/07/2024 07:17:23 02/06/20 24 02/07/2024 COMP. METAB OLIC PANEL (14) bilirubin, total 0.7 mg/dL 0.0-1. 2 Not Available [facility] ([facility]) [address] [place], [address], 02/07/2024 07:17:23 02/06/20 24 02/07/2024 COMP. METAB OLIC PANEL (14) alkaline phosphatase 124 IU/L 44-121 above high normal Not Available [facility] ([facility]) [address] [place], [address], 02/07/2024 07:17:23 02/06/20 24 02/07/2024 COMP. METAB OLIC PANEL (14) AST (SGOT) 18 IU/L 0-40 Not Available [facility] ([facility]) [address] [place], [address], 02/07/2024 07:17:23 02/06/20 24 02/07/2024 COMP. METAB OLIC PANEL (14) ALT (SGPT) 23 IU/L 0-32 Not Available [facility] ([facility]) [address] [place], [address], 02/07/2024 07:17:23 02/06/20 24 02/07/2024 HEMOG LOBIN A1C hemoglobin A1C 6.0 % 4.8-5. 6 above high normal Predi abete s: 5.7 - 6.4 Diabe neli: >6.4 Glyce susan contr ol for adult s with diabe neli: <7.0 Not Available [facility] ([facility]) [address] [place], [address], 02/07/2024 07:17:25 11/02/19 25 11/02/2024 LIPID PANEL WITH LDL/H DL RATIO cholesterol, total 160 mg/dL 100-19 9 Not Available [facility] ([facility]) [address] [place], [address], 11/02/2024 10:13:02 11/02/19 25 11/02/2024 LIPID PANEL WITH LDL/H DL RATIO triglyceride s 116 mg/dL 0-149 Not Available [facility] ([facility]) [address] [place], [address], 11/02/2024 10:13:02 11/02/19 25 11/02/2024 LIPID PANEL WITH LDL/H DL RATIO HDL cholesterol 57 mg/dL >39 Not Available [facility] ([facility]) [address] [facility], [place], [address], 11/02/2024 10:13:02 11/02/19 25 11/02/2024 LIPID PANEL WITH LDL/H DL RATIO VLDL cholesterol guillermo 21 mg/dL 5-40 Not Available [facility] ([facility]) [address] [place], [address], 11/02/2024 10:13:02 11/02/19 25 11/02/2024 LIPID PANEL WITH LDL/H DL RATIO LDL chol calc [facility] 82 mg/dL 0-99 Not Available [facility] ([facility]) [address] [place], [address], 11/02/2024 10:13:02 11/02/19 25 11/02/2024 LIPID PANEL WITH LDL/H DL RATIO LDL/HDL ratio 1.4 ratio 0.0-3. 2 LDL/H DL Ratio Men Women 1/2 Avg.R isk 1.0 1.5 Avg.R isk 3.6 3.2 2X Avg.R isk 6.2 5.0 3X Avg.R isk 8.0 6.1 Not Available [facility] ([facility]) [address] [place], [address], 11/02/2024 10:13:02 11/02/19 25 11/01/2024 COMP. METAB [...] at [email or web address] [email or web address] org. Not Available [facility] ([facility]) [address] [place], [address], 11/02/2024 10:13:03 11/02/19 25 11/02/2024 COMP. METAB OLIC PANEL (14) glucose 123 mg/dL 70-99 above high normal Not Available [facility] ([facility]) [address] [place], [address], 11/02/2024 10:13:03 11/02/19 25 11/02/2024 COMP. METAB OLIC PANEL (14) BUN 24 mg/dL 8-27 Not Available [facility] ([facility]) [address] [place], [address], 11/02/2024 10:13:03 11/02/19 25 11/02/2024 COMP. METAB OLIC PANEL (14) creatinine 0.75 mg/dL 0.57-1 .00 Not Available [facility] ([facility]) [address] [place], [address], 11/02/2024 10:13:03 11/02/19 25 11/02/2024 COMP. METAB OLIC PANEL (14) eGFR 86 mL/mi n/1.7 3 >59 Not Available [facility] ([facility]) [address] [facility], [place], [address], 11/02/2024 10:13:03 11/02/19 25 11/02/2024 COMP. METAB OLIC PANEL (14) BUN/creatini ne ratio 32 12-28 above high normal Not Available [facility] ([facility]) [address] [facility], [place], [address], 11/02/2024 10:13:03 11/02/19 25 11/02/2024 COMP. METAB OLIC PANEL (14) sodium 141 mmol/ L 134-14 4 Not Available [facility] ([facility]) [address] [facility], [place], [address], 11/02/2024 10:13:03 11/02/19 25 11/02/2024 COMP. METAB OLIC PANEL (14) potassium 3.5 mmol/ L 3.5-5. 2 Not Available [facility] ([facility]) [address] [facility] [place], [address], 11/02/2024 10:13:03 11/02/19 25 11/02/2024 COMP. METAB OLIC PANEL (14) chloride 102 mmol/ L 96-106 Not Available [facility] ([facility]) [address] [place], [address], 11/02/2024 10:13:03 11/02/19 25 11/02/2024 COMP. METAB OLIC PANEL (14) carbon dioxide, total 20 mmol/ L - Not Available [facility] ([facility]) [address] [place], [address], 11/02/2024 10:13:03 11/02/19 25 11/02/2024 COMP. METAB OLIC PANEL (14) calcium 10.3 mg/dL 8.7-10 .3 Not Available [facility] ([facility]) [address] [place], [address], 11/02/2024 10:13:03 11/02/19 25 11/02/2024 COMP. METAB OLIC PANEL (14) protein, total 7.3 g/dL 6.0-8. 5 Not Available [facility] ([facility]) [address] [place], [address], 11/02/2024 10:13:03 11/02/19 25 11/02/2024 COMP. METAB OLIC PANEL (14) albumin 4.7 g/dL 3.9-4. 9 Not Available [facility] ([facility]) [address] [place], [address], 11/02/2024 10:13:03 11/02/19 25 11/02/2024 COMP. METAB OLIC PANEL (14) globulin, total 2.6 g/dL 1.5-4. 5 Not Available [facility] ([facility]) [address] [place], [address], 11/02/2024 10:13:03 11/02/19 25 11/02/2024 COMP. METAB OLIC PANEL (14) bilirubin, total 0.5 mg/dL 0.0-1. 2 Not Available [facility] ([facility]) [address] [place], [address], 11/02/2024 10:13:03 11/02/19 25 11/02/2024 COMP. METAB OLIC PANEL (14) alkaline phosphatase 111 IU/L 44-121 Not Available [facility] ([facility]) [address] [place], [address], 11/02/2024 10:13:03 11/02/19 25 11/02/2024 COMP. METAB OLIC PANEL (14) AST (SGOT) 22 IU/L 0-40 Not Available [facility] ([facility]) [address] [place], [address], 11/02/2024 10:13:03 11/02/19 25 11/02/2024 COMP. METAB OLIC PANEL (14) ALT (SGPT) 23 IU/L 0-32 Not Available [facility] ([facility]) [address] [facility], [place], [address], 11/02/2024 10:13:03 11/02/19 25 11/02/2024 HEMOG LOBIN A1C hemoglobin A1C 5.7 % 4.8-5. 6 above high normal Predi abete s: 5.7 - 6.4 Diabe neli: >6.4 Glyce susan contr ol for adult s with diabe neli: <7.0 Not Available [facility] ([facility]) [address] [facility] [address], [place], [address], 11/02/2024 10:13:05 11/02/19 25 11/02/2024 CBC WITH DIFFE RENTI AL/PL ATELE T WBC 6.8 x10e3 /uL 3.4-10 .8 Not Available [facility] ([facility]) [address] [facility] [address], [place], [address], 11/02/2024 10:13:05 11/02/19 25 11/02/2024 CBC WITH DIFFE RENTI AL/PL ATELE T RBC 4.46 x10e6 /uL 3.77-5 .28 Not Available [facility] ([facility]) [address] [facility], [place], [address], 11/02/2024 10:13:05 11/02/19 25 11/02/2024 CBC WITH DIFFE RENTI AL/PL ATELE T hemoglobin 13.3 g/dL 11.1-1 5.9 Not Available [facility] ([facility]) [address] [facility], [place], [address], 11/02/2024 10:13:05 11/02/19 25 11/02/2024 CBC WITH DIFFE RENTI AL/PL ATELE T hematocrit 40.9 % 34.0-4 6.6 Not Available [facility] ([facility]) [address] [facility], [place], [address], 11/02/2024 10:13:05 11/02/19 25 11/02/2024 CBC WITH DIFFE RENTI AL/PL ATELE T MCV 92 fL 79-97 Not Available [facility] ([facility]) [address] [facility], [place], [address], 11/02/2024 10:13:05 11/02/19 25 11/02/2024 CBC WITH DIFFE RENTI AL/PL ATELE T MCH 29.8 pg 26.6-3 3.0 Not Available [facility] ([facility]) [address] [facility], [place], [address], 11/02/2024 10:13:05 11/02/19 25 11/02/2024 CBC WITH DIFFE RENTI AL/PL ATELE T MCHC 32.5 g/dL 31.5-3 5.7 Not Available [facility] ([facility]) [address] [facility], [place], [address], 11/02/2024 10:13:05 11/02/19 25 11/02/2024 CBC WITH DIFFE RENTI AL/PL ATELE T RDW 14.3 % 11.7-1 5.4 Not Available [facility] ([facility]) [address] [facility], [place], [address], 11/02/2024 10:13:05 11/02/19 25 11/02/2024 CBC WITH DIFFE RENTI AL/PL ATELE T platelets 178 x10e3 /uL 150-45 0 Not Available [facility] ([facility]) [address] [place], [address], 11/02/2024 10:13:05 11/02/19 25 11/02/2024 CBC WITH DIFFE RENTI AL/PL ATELE T neutrophils 64 % notest ab. Not Available [facility] ([facility]) [address] [facility], [place], [address], 11/02/2024 10:13:05 11/02/19 25 11/02/2024 CBC WITH DIFFE RENTI AL/PL ATELE T lymphs 24 % notest ab. Not Available [facility] ([facility]) [address] [facility], [place], [address], 11/02/2024 10:13:05 11/02/19 25 11/02/2024 CBC WITH DIFFE RENTI AL/PL ATELE T monocytes 9 % notest ab. Not Available [facility] ([facility]) [address] [facility], [place], [address], 11/02/2024 10:13:05 11/02/19 25 11/02/2024 CBC WITH DIFFE RENTI AL/PL ATELE T eos 2 % notest ab. Not Available [facility] ([facility]) [address] [facility], [place], [address], 11/02/2024 10:13:05 11/02/19 25 11/02/2024 CBC WITH DIFFE RENTI AL/PL ATELE T basos 1 % notest ab. Not Available [facility] ([facility]) [address] [facility], [place], [address], 11/02/2024 10:13:05 11/02/19 25 11/02/2024 CBC WITH DIFFE RENTI AL/PL ATELE T neutrophils (absolute) 4.4 x10e3 /uL 1.4-7. 0 Not Available [facility] ([facility]) [address] [place], [address], 11/02/2024 10:13:05 11/02/19 25 11/02/2024 CBC WITH DIFFE RENTI AL/PL ATELE T lymphs (absolute) 1.6 x10e3 /uL 0.7-3. 1 Not Available [facility] ([facility]) [address] [facility], [place], [address], 11/02/2024 10:13:05 11/02/1911/02/2024 CBC WITH DIFFE RENTI AL/PL ATELE T monocytes(ab solute) 0.6 x10e3 /uL 0.1-0. 9 Not Available [facility] ([facility]) [address] [facility], [place], [address], 11/02/2024 10:13:05 11/02/19 25 11/02/2024 CBC WITH DIFFE RENTI AL/PL ATELE T eos (absolute) 0.1 x10e3 /uL 0.0-0. 4 Not Available [facility] ([facility]) [address] [facility], [place], [address], 11/02/2024 10:13:05 11/02/19 25 11/02/2024 CBC WITH DIFFE RENTI AL/PL ATELE T baso (absolute) 0.1 x10e3 /uL 0.0-0. 2 Not Available [facility] ([facility]) [address] [facility], [place], [address], 11/02/2024 10:13:05 11/02/19 25 11/02/2024 CBC WITH DIFFE RENTI AL/PL ATELE T immature granulocytes 0 % notest ab. Not Available [facility] ([facility]) [address] [facility], [place], [address], 11/02/2024 10:13:05 11/02/19 25 11/02/2024 CBC WITH DIFFE RENTI AL/PL ATELE T immature grans (abs) 0.0 x10e3 /uL 0.0-0. 1 Not Available [facility] ([facility]) [address] [facility], [place], [address], 11/02/2024 10:13:05 Result Notes None recorded. Problems Name Problem SNOMED Code Status Onset Date Resolution Date Notes Provider Name and Address Organization Details Recorded Time Gout 97366121 Active 2021 CAROL BULLARD Attn: Regulo ledesma,[address] [facility], [place], [address], [place] [facility] 2 10:19:41 Edema of lower extremity 667371049 Active 2021 CAROL BULLARD Attn: Minnascar ledesma,[address] [facility], [place], [address], [place] [facility] 2 10:19:13 Lumbago with sciatica 331986126 Active 2022 CAROL BULLARD Attn: Minnascar ledesma,[address] [facility], [place], [address], [place] [facility] 3 12:09:44 Pain of left knee joint 6502336351997 07 Active 2022 CAROL BULLARD Attn: Minnascar ledesma,[address] [facility], [place], [address], [place] [facility] 3 12:09:51 Vaginal dryness 14781126 Active 2022 CAROL BULLARD Attn: Minnascar ledesma,[address] [facility], [place], [address], [place] [facility] 3 15:18:34 Reduced libido 2028941 Active 2022 CAROL BULLARD Attn: Regulo callie,[address] [facility], [place], [address], [place] [facility] 3 15:18:36 Essential hypertensio n 93424071 Active 2023 CAROL BULLARD Attn: Regulo callie,[address] [facility], [place], [address], [place] [facility] 4 09:36:04 Hyperlipide eric 33761732 Active 2023 CAROL BULLARD Attn: Regulo callie,[address] [facility], [place], [address], [place] [facility] 4 09:36:05 [...] : Nause a & Vomit ing, code: 04155 000) (from [facility]) Not Available nova - External Data [...] Available No t Available Vitals Date Recorded Oxygen saturation Provider Name and Address Organization Details Last Updated DateTime 04/13/2023 96 % Berry BULLARD Attn: Accounting,[address] [place], [address], [facility] 04/13/2023 10:56:17 Date Recorded Body height Body mass index (BMI) Body weight Heart rate Systolic And Diastolic Provider Name and Address Organization Details Last Updated DateTime 04/13/2023 161.29 cm 38.7 kg/m2 711455.5 1 g 74 /min 130/83 mm[Hg] Brianne Wu MA [facility] 04/13/2023 09:47:19 Date Recorded Body height Body mass index (BMI) Body weight Heart rate Oxygen saturation Systolic And Diastolic Provider Name and Address Organization Details Last Updated DateTime 3 161.29 cm 38.9 kg/m2 202602. 5 g 97 /min 98 % 128/84 mm[Hg] Xena Guardado MA [facility] 3 11:55:38 Date Recorded Respiratory rate Provider Name a oh Address Organization Details Last Updated DateTime 11/01/2024 18 /min CAROL RODAS Attn: Accounting,[address] [place], [address], [facility] 11/01/2024 10:11:00 Date Recorded Body height Body mass index (BMI) Body weight Oxygen saturation Heart rate Systolic And Diastolic Provider Name and Address Organization Details Last Updated DateTime 5 161.29 cm 36.3 kg/m2 80396.2 1 g 96 % 58 /min 117/78 mm[Hg] Brianne Wu MA [facility] 5 09:07:47 Date Recorded Body height Body mass index (BMI) Body weight Heart rate Oxygen saturation Systolic And Diastolic Provider Name and Address Organization Details Last Updated DateTime 4 161.29 cm 37.3 kg/m2 82716.7 7 g 76 /min 98 % 130/80 mm[Hg] CAROL BULLARD Attn: Accountin g,[address] [place], [address], [facility] 4 09:33:13 Date Recorded Body height Body mass index (BMI) Body weight Heart rate Oxygen saturation Systolic And Diastolic Provider Name and Address Organization Details Last Updated DateTime 3 161.29 cm 38.5 kg/m2 447408. 91 g 97 /min 99 % 124/86 mm[Hg] Xena Guardado [place] [facility] 3 08:51:15 Social History Question Answer Notes LastModified by Organizat ion Details LastModified Time Tobacco Smoking Status Never Smoker Brianne Wu MA null, [place] [facility] 05/22/2020 15:00:01 In The 14 [...] Skin Problems N Anemia N Heart Attack ([place]) N Anxiety Disorder N Diabetes N Muscle, [...] Immunizations Vaccine Type Date Status Note Provider Nam e and Address Organization Details Recorded Time Hep B, adult 2 completed Not Available [facility] 11/01/2024 09:02:54 Tdap 3 completed CAROL BULLARD Attn: Accounting[address] [place], [address], [facility] 09/28/2022 15:11:01 Pneumococcal conjugate PCV20, polysaccharide OSZ465 conjugate, adjuvant, PF 4 completed Brianne Wu MA [facility], [facility] 04/13/2023 11:45:53 Past Encounters Encounter ID Performer Location Encounter Start Date Encounter Closed Date Diagnosis/Indication Diagnosis SNOMED-CT Code Diagnosis ICD10 Code Diagnosis IMO Codes Diagnosis Note [id number] CAROL BULLARD [facility] [address] [place] [address] 05/22/2020 14:26:47 05/23/2020 11:45:12 Adult health examination 858517139 Z00.00 Patient presents to establish. Needs colonoscop y, mammogram, pap. - discussed healthy diet - 30 mins exercise 5x week - start taking vitamin D and calcium Essential hypertension 35828893 I10 Patient with hx of htn and taking half of indapamide 2.5 mg daily. BP today wnl. She has lost 30 lbs on weight watchers and feels like it has improved her BP. Advised to check BP regularly with a goal of <140/90, if BP consistent ly >140/90, advised to contact clinic Discussed DASH diet Advised weight loss and diet is best way to control BP Advised 30 minutes of exercise minimum daily Advised tobacco, alcohol, caffeine all increase BP F/U 6 months Depressive disorder 5802 9007 F32.9 Patient diagnosed with depression in 2000 and has been on citalopram since. She feels great on it and would like to continue. She recently (one month) took over care for her grandchild jacqueline and is adjusting well. - advised counseling -Patient was educated on his prescribed medication s, rationale for medication s, dosing indication s, adverse reactions, black box warning, dosing indication s, SE (e.g., decreased libido, weight gain, gynecomast ia, and galactorrh ea) and the risks and benefits. -Call center with questions/ concerns. Go to ER or call 911 for crisis (e.g., suicidal behaviors, suicidal ideations, intent or plan emerge). Additional ly, patient has suicide hotline #. - f/u one month - call with questions Gout [id number] M10.9 Patient was told joint pain was from uric acid and told to avoid shrimp and beer. Screening mammography 24 368414 Z12.31 Patient is self pay and given [facility] number to schedule. Colonoscopy declined 858 3652809 02715 Z53.20 patient given stool card [id number] CAROL BULLARD Replaced by [facility] [address] [place] [address] 12/03/2020 13:57:14 12/05/2020 12:42:21 Screening mammography 58048671 Z12.31 Patient is self pay and given [facility] number to schedule. Adult heal th examination 466060267 Z00.00 . Needs colonoscop y, mammogram, pap. Patient is self pay and given [facility] number to schedule. - discussed healthy diet - 30 mins exercise 5x week - start taking vitamin D and calcium Essential hypertension 78962698 I10 BP 132/70, wnl. Patient with hx of htn and taking half of indapamide 2.5 mg daily. BP today wnl. Advised to check BP regularly with a goal of <140/90, if BP consistent ly >140/90, advised to contact clinic Discussed DASH diet Advised weight loss and diet is best way to control BP Advised 30 minutes of exercise minimum daily Advised tobacco, alcohol, caffeine all increase BP F/U 6 months Depressive disorder 1103 9230 F32.9 Patient diagnosed with depression in 2000 and has been on citalopram since. She feels great on it and would like to continue. She recently (one month) took over care for her grandchild jacqueline and is adjusting well. - advised counseling -Patient was educated on his prescribed medication s, rationale for medication s, dosing indication s, adverse reactions, black box warning, dosing indication s, SE (e.g., decreased libido, weight gain, gynecomast ia, and galactorrh ea) and the risks and benefits. -Call center with questions/ concerns. Go to ER or call 911 for crisis (e.g., suicidal behaviors, suicidal ideations, intent or plan emerge). Additional ly, patient has suicide hotline #. - f/u one month - call with questions Gout [id number] M10.9 Patient was told joint pain was from uric acid and told to avoid shrimp and beer. advised of possible side effects. Patient agrees to start. last uric acid >9. goal<6. Colonoscopy declined 981 8066538 88788 Z53.20 patient given stool card [id number] CAROL BULLARD Replaced by [facility] [address] [place] [address] 12/17/2020 09:52:18 12/19/2020 10:50:22 [id number] Golden dang MD Replaced by [facility] [address] [place] [address] 03/12/2021 09:36:23 03/13/2021 09:47:51 Gout 80376156 M10.9 [id number] CAROL BULLARD Replaced by [facility] [address] [place] [address] 12/11/2021 09:37:20 12/14/2021 23:48:02 Screening mammography 38127010 Z12.31 Patient is self pay and given [facility] to [facility]. Adult heal th examination 489789264 Z00.00 Needs colonoscop y (refuses), mammogram, pap. Patient is self pay and given IBP number to schedule. - discussed healthy diet - 30 mins exercise 5x week - start taking vitamin D and calcium Essential hypertension 14194604 I10 BP 132/80, wnl. Patient with hx of htn and taking half of indapamide 2.5 mg daily. BP today wnl. Advised to check BP regularly with a goal of <140/90, if BP consistent ly >140/90, advised to contact clinic Discussed DASH diet Advised weight loss and diet is best way to control BP Advised 30 minutes of exercise minimum daily Advised tobacco, alcohol, caffeine all increase BP F/U 6 months Depressive disorder 3549 9008 F32.9 Patient diagnosed with depression in 2000 and has been on citalopram since. She feels great on it and would like to continue. - advised counseling -Patient was educated on his prescribed medication s, rationale for medication s, dosing indication s, adverse reactions, black box warning, dosing indication s, SE (e.g., decreased libido, weight gain, gynecomast ia, and galactorrh ea) and the risks and benefits. -Call center with questions/ concerns. Go to ER or call 911 for crisis (e.g., suicidal behaviors, suicidal ideations, intent or plan emerge). Additional ly, patient has suicide hotline #. - f/u one month - call with questions Gout [id number] M10.9 complaint with allopurino l 300mg/6/2 022 7.8, increased to 300mg at thsi time. will check before increasing 12/17/2021 7.9 Colonoscopy declined 136 4870093 44171 Z53.20 patient given stool card Edema of l ower extremity 621444255 R60.0 1+ PITTING EDEMA b/l lower legs - sodium restrictio n- compressio n socks Dyspnea on exertion 6084 5006 R06.09 dyspnea after walking for a >5 minutes. She is able to catch her breath. denies cp, sob. Obesity 938739521 E66.9 12 lb weight gain Screening for osteoporosis 988611562 Z13.820 screening [id number] CAROL BULLARD Replaced by [facility] [address] [place] [address] 09/28/2022 11:50:36 09/28/2022 12:38:43 Osteoporosis 79285390 M81.0 screen Screening mammography 24 435778 Z12.31 schedule mammogram Pain of le ft knee joint 8946546419 96456 M25.562 medial knee pain on palpation- [facility]- XRAY Lumbago with sciatica 20 5363278 M54.42 Acuate on chronic back pain with left leg radiation to left knee. denies red flag sx.takes Excedrin dailyagree s to PT Reduced libido 3549800 R 68.82 c/o of decreased libido Vaginal dryness 99270721 N89.8 using [place] water based lubricant Administra tion of diphtheria, pertussis, and tetanus vaccine 134656933 Z23 given today Depressive disorder 3548 9007 F32.9 Patient diagnosed with depression in 2000 and has been on citalopram since. open to tapering slowly. - advised counseling -Patient was educated on his prescribed medication s, rationale for medication s, dosing indication s, adverse reactions, black box warning, dosing indication s, SE (e.g., decreased libido, weight gain, gynecomast ia, and galactorrh ea) and the risks and benefits. -Call center with questions/ concerns. Go to ER or call 911 for crisis (e.g., suicidal behaviors, suicidal ideations, intent or plan emerge). Additional ly, patient has suicide hotline #. - f/u one month - call with questions Adult heal th examination 159230627 Z00.01 taper citalopram schedule mammogram, DEXA, pap, colonoscop yadvised weight losstake otc vitamin D + calciumnee ds prevnar 20 (not available today) shingles vaccinesde clines covid vaccinatio ns Obesity 483822330 E66.9 bmi 38.8 discussed cutting back portionsta rt walking daily [id number] CAROL BULLARD Replaced by [facility] [address] [place] [address] 03/02/2023 08:47:39 03/02/2023 13:02:34 Cough 69873051 R05.9 improving cough x 1 week w/o red flag sxlikely viralsx treatmentt rial benzonatat e and zyrtec for coygh and congestion [id number] CAROL BULLARD Replaced by [facility] [address] [place] [address] 04/13/2023 09:32:42 04/13/2023 12:27:28 Adult health examination 835615080 Z00.01 taper citalopram schedule mammogram, DEXA, pap, stool cardadvise d weight losstake otc vitamin D + calciumnee ds prevnar 20 (given today) shingles vaccinesde clines covid vaccinatio ns Hyperuricemia 10121086 E 79.0 Administra tion of pneumococcal vaccine 14039436 Z23 Screening for malignant neoplasm of colon 136536859 Z12.11 given stool card todaydecli paolo colonscopy at this time Screening for osteoporosis 992690656 Z13.820 screening [id number] Milton Grace MD Replaced by [facility] [address] [place] [address] 02/06/2024 08:31:46 02/06/2024 13:21:27 Hyperlipidemia 97990602 E78.5 refills Essential hypertension 13498302 I10 BP 132/80, wnl. Patient with hx of htn and taking half of indapamide 2.5 mg daily. BP today wnl. Advised to check BP regularly with a goal of <140/90, if BP consistent ly >140/90, advised to contact clinic Discussed DASH diet Advised weight loss and diet is best way to control BP Advised 30 minutes of exercise minimum daily Advised tobacco, alcohol, caffeine all increase BP F/U 6 months Gout 18018897 M10.9 refill Obesity 652663345 E66.9 bmi 37.3 discussed cutting back portionsta rt walking daily Screening for malignant neoplasm of colon 935964295 Z12.11 agrees to cologuardd eclined colonoscop y at this time Prediabetes 924247680 R7 3.03 pt with hx of prediabete sdiet discussed Osteoporosis 63838867 M8 1.0 screen Depressive disorder 6298 9007 F32.9 controlled has tolerates taper will but will stay on current dose at this timedenies si/hi [id number] Milton Grace MD Replaced by [facility] [address] [place] [address] 11/01/2024 09:01:24 11/01/2024 09:30:24 Essential hypertension 42694307 I10 15 yrs ago started indapamide trial off indapamide , advised pt check BP at home Hyperlipidemia 16374733 E78.5 on ator 20re-check today Gout 09719474 M10.9 controlled on allopurino l Recurrent major depression in full remission 95651594 F33.42 43707489 PHQ 6, on celexa since 2000tried to go off and felt weirdwill continue with current dose Screening for malignant neoplasm of breast 146004111 Z12.39 Screening for malignant neoplasm of colon 781499676 Z12.11 encouraged to complete kit at home Obese class II 723372327 1 58668 E66.812 E66.3 2338151130 Prediabetes 080829332 R7 3.03 547857 a1c 6.0 02/2024 Headache disorder 631352 009 G44.89 5525458 x40 yrsoccipit al L sidedsomew hat controlled on excedrin migrainebe lieves it is tension induceddec lines preventati ve or abortive medication at this time Postmenopausal state 764 27924 Z78.0 741554 DEXA ordered 02/2024, did not complete Health Concerns Section Related Observation LastModified by Organization Detai ls LastModified Time None Recorded Concern Status LastModified by Organization Details LastModified Time None Recorded Advance Directives Directive None Recorded Payers Insurance Date Sequence Insurance Name Policy Number Policy Vang Covered Member ID Vang Member ID Guarantor Name 11/01/2024 1 [place] Fallon Avilez [id number] Fallon Fatmata 12/17/2020 SLIDING FEE SCHEDULE - DISCOUNT Fallon Gelao 09/28/2022 1 *SELF PAY* Al ryley Avilez 05/02/2023 1 [place] Fallon Avilez [id number] Fallon Jessicalio 11/01/2024 1 *SELF PAY* Teodoro Avilez 10/29/2024 MEDICARE [facility] Fallon Avilez [id number] Fallon Avilez 09/28/2022 SLIDING FEE SCHEDULE - DISCOUNT Fallon Avilez Notes Date Note Type Note Provider Name and Address Organization Details Recorded Time 09/28/2022 text/html ROS as noted in the HPI Fallon is a 67 YO F pmhx obesity, gout and htn presenting for yearly check needs medications. sciatic left side to the knee. also having inner left knee pain that is worse with walking every day. 7/10 pain most of the time. stairs make it worse. knee pain back pain x 3 months. for pain Excedrin 3x daily and supplements with 4 ibuprofen 800mg once or twice per week. denies saddle anesthesia, falling, loss of bowel or urinary control has not had pap, mammogram or colonoscopy. not taking Vitamin D or calcium. Patient doing very well on citalopram and wishes to stay on it but agrees to slow taper.. denies tearful episodes, depressed mood, anxiety, SI/HI. She is concerned about her weight. she only drinks water. She feels she mostly eats larger portions. she also c/o of vaginal dryness and decreased libido. CAROL BULLARD Attn: Accounting[address] [place], [address], [facility] 09/28/2022 15:23:04 03/02/2023 text/html cough x 7 days with congestion She has had some congestion and cough that is worse at night when trying to sleep. Has not been letting her sleep but admits she did feel better last night. She does have sick contacts. she denies wheezing, sob, diarrhea, fever, chills, malaise, appetite changes. CAROL BULLARD Attn: Accounting[address] [place], [address], [facility] - [facility] 03/02/2023 10:42:10 04/13/2023 text/html ROS as noted in the HPI Fallon is a 67 YO F pmhx obesity, gout and htn presenting for yearly check has not had pap, mammogram or colonoscopy. not taking Vitamin D or calcium. Patient doing very well on citalopram and wishes to stay on it but agrees to slow taper.. denies tearful episodes, depressed mood, anxiety, SI/HI. denies cp, sob, palpitations. CAROL BULLARD Attn: Accounting,[address] [facility], [place], [address], [facility] - [facility] 04/13/2023 11:44:28 02/06/2024 text/html ROS as noted in the HPI Fallon is a 68 YO F pmhx obesity, gout and htn presenting for refills has not had pap, mammogram or colonoscopy. not taking Vitamin D or calcium. Patient doing very well on citalopram and wishes to stay on it.. denies tearful episodes, depressed mood (on occasion), anxiety, SI/HI. denies cp, sob, palpitations. CAROL BULLARD Attn: Accounting,[address] [facility], [place], [address], [facility] 02/06/2024 09:36:58 11/01/2024 text/html ROS as noted in the HPI Patient presents to establish care as a new patient. Transfer from [facility] PA-C. History of hypertension, high cholesterol, headaches, [...] pain, dizziness, or weakness. CAROL RODAS Attn: Accounting,[address] [facility], [place], [address], [facility] 11/01/2024 10:12:44 OBGyn Episode No OBEpisode recorded.
[2025-01-29 16:04] LABS: Add Urine Microscopic? YES; Appearance Urine Clear (Clear); Glucose Urine UA Negative (Negative); Leukocyte Esterase Ur 1+ LEU/UL (Negative); Need Manual Microscopic Reviewed; Nitrate Urine Negative (Negative); Specific Grav Ur 1.020 (1.001-1.035)
[2025-01-29] MEDS: SODIUM CHLORIDE 0.9% IV 1,000 ML 999 ML IV CONT (16:12)
[2025-01-29] MEDS: ONDANSETRON INJ 4 MG/2 ML VIAL IV PUSH (16:12)
[2025-01-29] MEDS: KCL 20 MEQ/SW 100 ML 100 ML 50 MEQ IVPB (16:33)
[2025-01-29 17:01] LABS: Magnesium 2.6 mg/dL (1.6-2.3)
[2025-01-29 17:12] LABS: Troponin I < 0.012 ng/mL (0.000-0.034)
[2025-01-29] MEDS: PIPERACILLIN/TAZOBACTAM SOD 3.375 GM in SODIUM CHLORIDE 0.9% IV 50 ML 100 ML IVPB ×2 (17:17→23:30)
--- OUTSIDE RECORDS SUMMARY | 2025-01-29 17:21 | XMS_ITS | Clinical Summary ---
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
--- NOTE | 2025-01-29 17:43 | PM.CNGS ---
Assessment and Plan Assessment and plan (1) Acute cholecystitis: Code(s): K81.0 - Acute cholecystitis Status: Acute Assessment and Plan: I reviewed the CT and discussed the findings with the patient. She has evidence of acute cholecystitis with a large gallstone at the neck of the gallbladder. Patient symptoms overall are not too severe at this time, but there is risk of this recurring without surgical intervention. Will plan to repeat labs tomorrow and reassess the patient. Will discuss options of dietary modification and observation verses laparoscopic cholecystectomy, based on patient's clinical picture. (2) Acute hypokalemia: Code(s): E87.6 - Hypokalemia Status: Acute (3) Dehydration: Code(s): E86.0 - Dehydration Status: Acute History of Present Illness Consult details Consult date: 01/29/25 Reason for consult: other (Cholecystitis) Requesting physician: Fredo Soto MD Narrative: This is a 69-year-old woman who I am asked to see for acute cholecystitis. She presented to the emergency department today due to some possible heart issues. She states that her watch and fit but had been telling her she had low heart rate. She states that about 1 week ago she began experiencing some upper abdominal pain along with nausea and vomiting. This happened shortly after eating [place] food for dinner 1 week ago. The nausea and vomiting had continued for several days. She states that the abdominal pain is actually not so bad right now. She has not had any severe episodes like this in the past. In the emergency department a CT abdomen and pelvis was performed which showed evidence of cholecystitis with a large gallstone at the neck of the gallbladder. She has an elevated white blood count as well as elevated transaminases. Her bilirubin is normal. Review of Systems Review of Systems: All systems reviewed & are unremarkable except as noted in HPI and below Constitutional: Constitutional: Denies fever(s) Eyes: Eyes: Denies change in vision ENT: Denies hearing loss, Denies neck pain and Denies sore throat Cardiovascular: Cardiovascular: Denies chest pain and Denies dyspnea Respiratory: Respiratory: Denies cough, Denies dyspnea and Denies wheezing Gastrointestinal: Gastrointestinal: Reports as per HPI Genitourinary: Genitourinary: Denies hematuria and Denies dysuria Musculoskeletal: Musculoskeletal: Denies arthralgias, Denies joint swelling and Denies neck pain Allergic/Immunologic: Allergic/Immunologic: Denies wheezing [facility] Past Medical History Medical History (Updated 01/29/25 @ 17:04 by Fredo Soto MD) Hypertension Surgical History Surgical History (Updated 01/29/25 @ 17:46 by Cong Gupta DO) No pertinent past surgical history Family History Family History Father , at age 76 Acute myocardial infarction Mother , at age 84 with respiratory failure post rib fracture post fall No problems noted. Social History Social History Social History: lives with her and and as below never smoked and no occupational exposure 3 children living well Smoking status: Never smoker Second hand tobacco smoke exposure: No Alcohol intake: never Substance use: never Gender identity (if verbalized by the patient): Female Sexual Orientation (if Verbalized by the Patient): Straight or Heterosexual Spiritual care concerns: No Meds Home Medications and Allergies Home Medications ?Medication ?Instructions ?Recorded ?Confirmed ?Type citalopram 40 mg tablet 40 mg PO DAILY 12/31/19 12/31/19 History indapamide 2.5 mg tablet 2.5 mg PO DAILY 12/31/19 12/31/19 History Held on 01/05/20. Instructions: Hold. Resume when okay with your doctor. dexamethasone 2 mg tablet 6 mg (3 x 2 mg) PO DAILY@0800 #4 01/05/20 Rx tabs Allergies Allergy/AdvReac Type Severity Reaction Status Date / Time erythromycin base Allergy Unknown SICK TO Verified 01/29/25 14:10 STOMACH Vital Signs Vital Signs - 24 hr 01/29/25 14:23 Temperature 97.6 F Pulse Rate 91 Respiratory Rate 18 Blood Pressure 122/72 Pulse Oximetry 98 Oxygen Delivery Room Air Exam Const: General: alert; No acute distress Orientation/consciousness: patient oriented x3 Limitations: no limitations HENMT: Head: normocephalic and atraumatic Ears: hearing grossly normal bilaterally Face/Nose/Sinus: Normal external nose present and Normal nares present Mouth: Yes Normal oral and palatal mucosa present and Yes moist mucous membranes Eyes: General: appearance normal, both eyes and all related structures Conjunctivae: conjunctivae normal Sclera: sclerae normal Pupils: Equal, round and reactive pupils present EOM: EOMs intact bilaterally Neck: Neck: normal visual inspection, full ROM, no lymphadenopathy, supple and no JVD Lymphatic: no lymphadenopathy noted Chest: Chest palpation & inspection: normal inspection of the chest Resp: Effort & Inspection: normal respiratory effort and able to speak in complete sentences Auscultation: clear to auscultation bilaterally Percussion: percussion normal Cardio: Jugular venous distension: no JVD Rate: regular rate Rhythm: regular rhythm Heart sounds: S1 normal heart sound present and S2 normal heart sound present Peripheral pulses: Peripheral pulses 2+ throughout GI: Inspection: normal to inspection and non-distended GI Palp: Yes Soft to palpation, Yes Tenderness to palpation present (GI) (Minimal right upper quadrant tenderness), No Guarding due to palpation present (GI) and No Rebound tenderness present Auscultation: normal bowel sounds : General: Yes no CVA tenderness Back/Spine/Pelvis: Back: no CVA tenderness Skin: General skin exam: normal color and dry skin Neuro: General: patient oriented x3, gait normal, moves all extremities, no focal motor deficits and CN's II-XI intact bilaterally Cranial nerves: Yes Equal, round and reactive pupils present Speech: normal speech Extrem: General: normal to inspection and capillary refill normal Results Labs 01/29/25 15:22 01/29/25 15:22 Labs: Abnormal lab results 01/29/25 01/29/25 Range/Units 15:22 16:40 WBC 14.4 H (4.5-10.0) K/mm3 RDW 15.4 H (11.5-14.5) % MPV 10.5 H (7.4-10.4) fl Immature Gran % (Auto) 0.6 H (0-0.5) % Neut % (Auto) 78.5 H (45.5-73.1) % Lymph % (Auto) 12.9 L (18.3-44.2) % [place] # (Auto) 1.0 H (0.1-0.6) K/mm3 Abs Immat Gran (auto) 0.08 H (0.00-0.031) K/mm3 Absolute Neuts (auto) 11.3 H (1.3-6.7) K/mm3 Sodium 136 L (137-145) mmol/L Potassium 2.9 L (3.4-5.0) mmol/L Carbon Dioxide 21 L (22-30) mmol/L Anion Gap 17 H (4-12) mmol/L BUN 60 H D (7-17) mg/dL Creatinine 1.15 H (0.7-1.0) mg/dL Estimated GFR 47 L (59 - ) Glucose 112 H (65-110) mg/dL Calcium 10.3 H (8.4-10.2) mg/dL Magnesium 2.6 H (1.6-2.3) mg/dL AST 224 H (14-36) U/L ALT 398 H (6-35) U/L Alkaline Phosphatase 330 H (38-126) U/L Total Protein 8.3 H (6.3-8.2) g/dL Urine Ketones Trace H (Negative) mg/dL Leukocyte Esterase Rfl 1+ H (Negative) SADIA/UL Diabetes panel 01/29/25 Range/Units 15:22 Sodium 136 L (137-145) mmol/L Potassium 2.9 L (3.4-5.0) mmol/L Chloride 98 (98-107) mmol/L Carbon Dioxide 21 L (22-30) mmol/L BUN 60 H D (7-17) mg/dL Creatinine 1.15 H (0.7-1.0) mg/dL Glucose 112 H (65-110) mg/dL Calcium 10.3 H (8.4-10.2) mg/dL AST 224 H (14-36) U/L ALT 398 H (6-35) U/L Alkaline Phosphatase 330 H (38-126) U/L Total Protein 8.3 H (6.3-8.2) g/dL Albumin 4.5 (3.5-5.1) g/dL Calcium panel 01/29/25 Range/Units 15:22 Calcium 10.3 H (8.4-10.2) mg/dL Albumin 4.5 (3.5-5.1) g/dL Pituitary panel 01/29/25 Range/Units 15:22 Sodium 136 L (137-145) mmol/L Potassium 2.9 L (3.4-5.0) mmol/L Chloride 98 (98-107) mmol/L Carbon Dioxide 21 L (22-30) mmol/L BUN 60 H D (7-17) mg/dL Creatinine 1.15 H (0.7-1.0) mg/dL Glucose 112 H (65-110) mg/dL Calcium 10.3 H (8.4-10.2) mg/dL Adrenal panel 01/29/25 Range/Units 15:22 Sodium 136 L (137-145) mmol/L Potassium 2.9 L (3.4-5.0) mmol/L Chloride 98 (98-107) mmol/L Carbon Dioxide 21 L (22-30) mmol/L BUN 60 H D (7-17) mg/dL Creatinine 1.15 H (0.7-1.0) mg/dL Glucose 112 H (65-110) mg/dL Calcium 10.3 H (8.4-10.2) mg/dL Total Bilirubin 0.8 (0.2-1.3) mg/dL AST 224 H (14-36) U/L ALT 398 H (6-35) U/L Alkaline Phosphatase 330 H (38-126) U/L Total Protein 8.3 H (6.3-8.2) g/dL Albumin 4.5 (3.5-5.1) g/dL All other labs normal. Imaging Additional studies: ITS Impressions Abdomen/Pelvis CT 01/29/25 16:28 IMPRESSION: 1. Large gallstone impacting neck of the gallbladder with distended gallbladder and edema of the gallbladder wall suggestive of acute cholecystitis. 2. Extrahepatic bile ducts are borderline in diameter in size. Pancreas shows no acute findings. 3. Diverticulosis of distal colon. 4. Severe degenerative disc disease at L2-3 level.
[2025-01-29 17:47] VITALS: BP 120/54; PULSE 87; RESP 14; O2SAT 98
--- NOTE | 2025-01-29 17:50 | WPCEDHO ---
ED Hand Off Checklist All vitals saved:yes IV Site documented:yes All med administrations documented:yes Triage Note Triage Note Pt c/o N/V/D and upper abdominal 01/29/25 15:59 pain x 1 week. Denies abdominal pain now. Family states pt is lethargic. Denies fever or chills Agree with triage assessment. Allergies erythromycin base Allergy (Unknown, Verified 01/29/25 14:10) SICK TO STOMACH Current Diagnoses Dehydration (01/29/25) Hypokalemia (01/29/25) Acute cholecystitis (01/29/25) Family History (Last Reviewed 01/29/25 @ 16:14 by Fredo Soto MD) Father Acute myocardial infarction Mother No problems noted. Active Medications including assessments/comments Potassium Chloride (Kcl 20 Meq/Sw 100 Ml) 100 mls @ 50 mls/hr IVPB ONCE STA Stop: 01/29/25 17:59 Last Admin: 01/29/25 16:33 Dose: 50 mls/hr Documented By: BUFFY Co-signed By: SARTHAK Infusion/Titration Document 01/29/25 16:33 BUFFY (Rec: 01/29/25 16:33 JORGE [id number]) Co-signed By Katie Figueroa RN Intake IV Site Peripheral Access Right Antecubital Container Volume 100 Waste Amount 0 Dosing Infusion Rate 50 Cumulative Dose Not Applicable Increase/Decrease Started Elapsed Time Elapsed Time ( 0m minutes) Potassium Chloride Infusion Document 01/29/25 16:33 BUFFY (Rec: 01/29/25 16:33 BUFFY [id number]) Co-signed By Katie Figueroa RN Infusion Action Potassium Chloride Initiated Infusion Action Administered/Completed Medications Discontinued Medications Sodium Chloride (Normal Saline Iv) 1,000 mls @ 999 mls/hr IV CONT .Q1H1M STA Stop: 01/29/25 17:00 Last Infusion: 01/29/25 17:20 Dose: Infused Documented By: Admin: 01/29/25 16:12 Dose: 999 mls/hr Documented By: BUFFY Piperacillin Sod/Tazobactam (Sod 3.375 gm/ Sodium Chloride) 50 mls @ 100 mls/hr IVPB ONCE STA Stop: 01/29/25 17:26 Last Infusion: 01/29/25 17:46 Dose: Infused Documented By: Admin: 01/29/25 17:17 Dose: 100 mls/hr Documented By: BUFFY Ondansetron HCl (Ondansetron Inj 4 Mg/2 Ml Vial) 4 mg IV PUSH ONCE STA Stop: 01/29/25 16:01 Last Admin: 01/29/25 16:12 Dose: 4 mg Documented By: BUFFY Interventions/Assessments IV / Saline Lock, Insert Start: 01/29/25 14:51 Freq: STAT Status: Active Protocol: Document 01/29/25 15:24 AMH (Rec: 01/29/25 15:24 AMH [id number]) IV Assessment Peripheral Access Right Antecubital IV Catheter Access Initiated IV Insertion Date 01/29/25 IV Insertion Time 15:24 Catheter Gauge 20 IV Site Assessment WNL IV Care and WNL Maintenance PA: Gastrointestinal Assessment Start: 01/29/25 14:23 Freq: Status: Active Protocol: Document 01/29/25 17:47 BUFFY (Rec: 01/29/25 17:47 BUFFY [id number]) GI Assessment Gastrointestinal Nausea,Pain,Vomiting Symptoms Last Vital Signs Temperature 97.6 F 01/29/25 14:23 Pulse Rate 87 01/29/25 17:47 Respiratory Rate 14 01/29/25 17:47 Pulse Oximetry 98 01/29/25 17:47 Blood Pressure 120/54 L 01/29/25 17:47 Blood Pressure Mean 76 01/29/25 17:47 Blood Pressure Position Sitting 01/29/25 14:23 Oxygen Delivery Room Air 01/29/25 14:23 Weight 93 kg 01/29/25 15:59 Last Result - Abnormals Only WBC 14.4 K/mm3 (4.5-10.0) H 01/29/25 15:22 RDW 15.4 % (11.5-14.5) H 01/29/25 15:22 MPV 10.5 fl (7.4-10.4) H 01/29/25 15:22 Immature Gran % (Auto) 0.6 % (0-0.5) H 01/29/25 15:22 Neut % (Auto) 78.5 % (45.5-73.1) H 01/29/25 15:22 Lymph % (Auto) 12.9 % (18.3-44.2) L 01/29/25 15:22 [place] # (Auto) 1.0 K/mm3 (0.1-0.6) H 01/29/25 15:22 Abs Immat Gran (auto) 0.08 K/mm3 (0.00-0.031) H 01/29/25 15:22 Absolute Neuts (auto) 11.3 K/mm3 (1.3-6.7) H 01/29/25 15:22 Sodium 136 mmol/L (137-145) L 01/29/25 15:22 Potassium 2.9 mmol/L (3.4-5.0) L 01/29/25 15:22 Carbon Dioxide 21 mmol/L (22-30) L 01/29/25 15:22 Anion Gap 17 mmol/L (4-12) H 01/29/25 15:22 BUN 60 mg/dL (7-17) H D 01/29/25 15:22 Creatinine 1.15 mg/dL (0.7-1.0) H 01/29/25 15:22 Estimated GFR 47 (59-) L 01/29/25 15:22 Glucose 112 mg/dL (65-110) H 01/29/25 15:22 Calcium 10.3 mg/dL (8.4-10.2) H 01/29/25 15:22 Magnesium 2.6 mg/dL (1.6-2.3) H 01/29/25 16:40 AST 224 U/L (14-36) H 01/29/25 15:22 ALT 398 U/L (6-35) H 01/29/25 15:22 Alkaline Phosphatase 330 U/L (38-126) H 01/29/25 15:22 Total Protein 8.3 g/dL (6.3-8.2) H 01/29/25 15:22 Urine Ketones Trace mg/dL (Negative) H 01/29/25 15:22 Leukocyte Esterase Rfl 1+ SADIA/UL (Negative) H 01/29/25 15:22 Most Recent Suicide Severity Rating Suicide Severity Rating NO RISK INDICATED 01/29/25 15:59
[2025-01-29 18:43] VITALS: BMI 36.1
--- NOTE | 2025-01-29 18:51 | ADMGEN ---
This patient, Fallon Avilez, was admitted to 3 [facility] Surg Room 312-01. Patient/family oriented to hospital policies and general routines including ID bracelet, bed and alarms, visiting hours, pain management, procedures, bathroom and other care routines, personal items, smoking policy, room service/diet, and visiting hours. Information on how to activate the Rapid Response Team has been discussed. Patient/Family are encouraged to report perceived risks to care and to ask questions if they do not understand what they are told or what they should do.
[2025-01-29 20:00] VITALS: PULSE 101
[2025-01-29] MEDS: SODIUM CHLORIDE 0.9% IV 1,000 ML 125 ML IV CONT (20:32)
[2025-01-29 21:48] VITALS: BP 120/67; PULSE 83; RESP 18; TEMP 36.9; O2SAT 100
[2025-01-30] VITALS: PULSE 99
--- NOTE | 2025-01-30 02:53 | P.HP_ITS ---
H&P: HPI History of Present Illness Date/Time: 01/30/25 02:53 Chief Complaint: Abdominal pain for 1 week Narrative: 69-year-old female with a past medical history of gout, anxiety, obesity and essential hypertension and dyslipidemia presented to the ER from urgent care due concerns about her heart. She reported that her smart watch and her smart number bed work telling her that her heart rate had been lower for the last couple of days. At urgent care the patient was noted to have some borderline low blood pressures and she was directed to go to straight to the ER for evaluation On further questioning the was found out that the patient started having symptoms of epigastric abdominal pain 1 week ago. The pain lasted for 1- 2 days and was only a 3/10 in intensity and achy in nature. He was accompanied by vomiting 2 or 3 times on the 1st day but no further vomiting after that time. She has had profound loss appetite. She did not eat anything solid for 4 days then was able to eat a microwave meal for the next 2 days. She was having 2-3 soft mushy stools a day number brown in color. She denied any fevers or chills. She denies any increased pain with eating. She reports that is not unusual for her to feel lightheaded with position changes but denies any chest pain palpitations or shortness of breath. She has never had any prior surgeries. In the ER she had a CT scan which demonstrated large gallstone impacted in the neck of the gallbladder with distended gallbladder and edema of the gallbladder wall consistent with acute cholecystitis. Extra hepatic bile ducts are borderline diameter in size without evidence of pancreatitis. She was started on empiric antibiotic therapy with Zosyn and given 1 L fluid bolus. She was admitted for further evaluation. Review of Systems 2 Review of Systems: 12 systems were reviewed with pertinent positives and negatives per HPI. Except as documented in the HPI, all other systems were reviewed and are negative. [facility] Past Medical History Medical History (Updated 01/30/25 @ 07:53 by Radha Wilson DO) Anxiety Gout Hypertension Surgical History Surgical History (Updated 01/30/25 @ 07:53 by Radha Wilson DO) No history of previous surgery Family History Family History Father , at age 76 Acute myocardial infarction Mother , at age 84 with respiratory failure post rib fracture post fall No problems noted. Social History Social History (Updated 01/30/25 @ 02:55 by Radha Wilson DO) Social History: She lives with her . They raised 3 children. Code status: Full code Surrogate decision maker: Syed () Smoking status: Never smoker Second hand tobacco smoke exposure: No Alcohol intake: never Substance use: never Lack of Transportation: No Lack of Food: Never True Current Housing: I Have Housing Concerned About Future Housing: No Difficulty Paying Gas/Electric Bills: No Difficulty Paying for Meds: No Currently Unemployed: No Education: High School Diploma/GED Difficulty w/ Childcare or Family Care: No Gender identity (if verbalized by the patient): Female Sexual Orientation (if Verbalized by the Patient): Straight or Heterosexual Spiritual care concerns: No Meds Home Medications and Allergies Home Medications ?Medication ?Instructions ?Recorded ?Confirmed ?Type indapamide 2.5 mg tablet 2.5 mg PO DAILY 12/31/19 History Held on 01/05/20. Instructions: Hold. Resume when okay with your doctor. allopurinol 300 mg tablet 300 mg PO HS 01/29/25 History atorvastatin 20 mg tablet 20 mg PO DAILY 01/29/2501/06 History citalopram 10 mg tablet 10 mg PO DAILY 01/29/2501/06 History lisinopril 40 mg tablet 40 mg PO DAILY@0800 01/29/25 01/29/25 History Allergies Allergy/AdvReac Type Severity Reaction Status Date / Time erythromycin base Allergy Unknown SICK TO Verified 01/29/25 18:57 STOMACH Vital Signs Vital Signs - 24 hr 01/29/25 14:23 01/29/25 17:47 01/29/25 20:00 Temperature 97.6 F Pulse Rate 91 87 Respiratory Rate 18 14 Blood Pressure 122/72 120/54 L Pulse Oximetry 98 98 Oxygen Delivery Room Air Room Air 01/29/25 20:00 01/29/25 21:48 01/30/25 00:00 Temperature 98.5 F Pulse Rate 101 H 83 99 Respiratory Rate 18 Blood Pressure 120/67 Pulse Oximetry 100 Oxygen Delivery Exam 2 Narrative: Weight 95.4 kg 36.1 Const: Other: No acute distress, obese, appears stated age HENMT: Other: Edentulous in upper and lower jaw, mucous membranes are tacky, no oral pharyngeal erythema Eyes: Other: No scleral icterus, no conjunctival pallor Neck: Other: No lymphadenopathy, large neck circumference Resp: Other: Clear to auscultation bilaterally, no increased work of breathing Cardio: Other: Regular rate, regular rhythm, 2+ bilateral radial pedal pulses, 2/6 systolic murmur GI: Other: Soft, nontender, obese, hyperactive bowel sounds Skin: Other: Mild jaundice, no pallor Neuro: Other: Alert oriented x4, speech is clear, no facial asymmetry, no localizing neurologic deficits noted during the course of conversation Extrem: Other: No clubbing, cyanosis or edema, 5/5 legal support manager strength bilateral Psych: Other: Appropriate mood and affect, pleasant and cooperative, insight and judgment intact H&P: Results Labs Labs: Laboratory Tests 01/29/25 15:22 01/29/25 15:22 01/29/25 01/29/25 01/29/25 15:22 16:40 16:40 WBC 14.4 H RBC 4.22 Hgb 12.5 Hct 37.8 MCV 89.6 MCH 29.6 MCHC 33.1 RDW 15.4 H Plt Count 289 MPV 10.5 H Immature Gran % (Auto) 0.6 H Neut % (Auto) 78.5 H Lymph % (Auto) 12.9 L [place] % (Auto) 6.7 Eos % (Auto) 1.0 Baso % (Auto) 0.3 Lymph # (Auto) 1.86 [place] # (Auto) 1.0 H Eos # (Auto) 0.2 Baso # (Auto) 0.0 Abs Immat Gran (auto) 0.08 H Absolute Neuts (auto) 11.3 H Absolute Nucleated RBC 0.000 Nucleated RBC % 0.0 Sodium 136 L Potassium 2.9 L Chloride 98 Carbon Dioxide 21 L Anion Gap 17 H BUN 60 H D Creatinine 1.15 H Estim Creat Clear Calc 45 Estimated GFR 47 L Glucose 112 H Lactic Acid 1.2 Calcium 10.3 H Magnesium 2.6 H Cancelled Total Bilirubin 0.8 AST 224 H ALT 398 H Alkaline Phosphatase 330 H Troponin I < 0.012 Total Protein 8.3 H Albumin 4.5 Lipase 254 Urine Color Yellow Urine Appearance Clear Urine pH 5.0 Ur Specific [place] 1.020 Urine Protein Trace Urine Glucose (UA) Negative Urine Ketones Trace H Ur Blood (Man) Negative Urine Nitrate Negative Urine Bilirubin Negative Urine Urobilinogen 1.0 Add Ur Microanalysis Reviewed Leukocyte Esterase Rfl 1+ H Urine RBC 0-2 Urine WBC 0-5 Ur Squamous Epith Cells None seen Urine Bacteria None seen Urine Casts 3-5 Impressions Abdomen/Pelvis CT 01/29/25 16:28 IMPRESSION: 1. Large gallstone impacting neck of the gallbladder with distended gallbladder and edema of the gallbladder wall suggestive of acute cholecystitis. 2. Extrahepatic bile ducts are borderline in diameter in size. Pancreas shows no acute findings. 3. Diverticulosis of distal colon. 4. Severe degenerative disc disease at L2-3 level. EKG:Test Date: 2025-01-29 16:13:16 Measurements Intervals [place] Rate: 84 P: 22 DC: 169 QRS: -3 QRSD: 103 T: -2 QT: 305 QTc: 361 Interpretive Statements SINUS RHYTHM NONSPECIFIC T-WAVE ABNORMALITY BORDERLINE ECG Assessment and Plan Assessment and plan (1) Cholelithiasis and cholecystitis with obstruction: Qualifiers: Cholecystitis acuity: acute Cholelithiasis location: gallbladder Q ualified Code(s): K80.01 - Calculus of gallbladder with acute cholecystitis with obstruction Code(s): K80.19 - Calculus of gallbladder with other cholecystitis with obstruction Status: Acute (2) SIRS (systemic inflammatory response syndrome): Code(s): R65.10 - Systemic inflammatory response syndrome (SIRS) of non-infectious origin without acute organ dysfunction Status: Acute (3) Transaminitis: Code(s): R74.01 - Elevation of levels of liver transaminase levels Status: Acute (4) Acute kidney injury: Code(s): N17.9 - Acute kidney failure, unspecified Status: Acute (5) Dehydration: Code(s): E86.0 - Dehydration Status: Acute (6) Acute hypokalemia: Code(s): E87.6 - Hypokalemia Status: Acute Plan Patient has acute cholecystitis with cholelithiasis with associated transaminitis. Patient did meet SIRS criteria on initial presentation with tachycardia leukocytosis in the setting of acute cholecystitis. Patient tachycardia improved with 1 L IV fluid bolus will continue maintenance IV fluids. Patient been started on empiric antibiotic therapy with Zosyn. And General surgery has already is evaluated the patient and the patient has been made NPO for possible surgical procedure in a.m... Will repeat CBC and CMP in a.m.. P.r.n. pain medications have been provided. He patient does have evidence of acute kidney injury due to a combination of infection and dehydration. Continue maintenance IV fluids. Avoid nephrotoxic medications. Monitor strict I&O's. Will hold the patient's home lisinopril and thiazide diuretic. Patient did have evidence of acute hypokalemia and received 40 mEq potassium chloride rider in the ER. Patient's magnesium level is actually mildly elevated. Will repeat electrolyte panel in a.m. and give additional supplementation if clinically indicated. Patient has been admitted as observation status. MEDICAL DECISION MAKING NARRATIVE -Spoke with the ED provider in detail regarding patient's evaluation, workup and management -Patient seen and examined at bedside -Collaborated with patient's nurse at the bedside in detail and addressed all concerns -Labs, electrolytes, radiology, investigations and test results personally reviewed and interpreted unless otherwise specified -ED/Consult/Nursing/Ancilliary notes on the chart reviewed and appreciated -Spoke with patient at bedside and diagnosis and plan of care was discussed. All questions answered. Quality VTE Prophylaxis VTE prophylaxis: pharmacologic ordered (Lovenox 40 mg subQ daily to be started on the morning of the ) Hospitalist [facility] Advance Care Plan I have confirmed that the patient's Advanced Care Plan is present, code status is documented, or surrogate decision maker is listed in patient medical record.: Yes Medication Reconciliation I have utilized all available resources to obtain, update and review the patients current medications (includes all prescriptions, OTC, herbals, cannabis, and nutritional supplements).: Yes
[2025-01-30] MEDS: SODIUM CHLORIDE 0.9% IV 1,000 ML 100 ML IV CONT ×2 (03:19→08:06)
[2025-01-30 04:00] VITALS: PULSE 86
[2025-01-30] MEDS: PIPERACILLIN/TAZOBACTAM SOD 3.375 GM in SODIUM CHLORIDE 0.9% IV 50 ML 100 ML IVPB ×2 (05:07→11:54)
[2025-01-30 05:27] LABS: Hematocrit 32.3 % (37.0-47.0); Hemoglobin 10.6 g/dL (12.0-15.0); Mean Corpuscular HGB Conc 32.8 g/dl (32-36); Mean Corpuscular Hemoglobin 29.6 pg (26-34); Mean Corpuscular Volume 90.2 fl (80-100); Platelet Count Result 220 k/mm3 (150-375); Red Blood Count 3.58 M/mm3 (4.2-5.4); White Blood Count 9.5 K/mm3 (4.5-10.0)
[2025-01-30 05:39] LABS: INR 1.2; Prothrombin Time 14.8 Seconds (11.1-14.7)
[2025-01-30 05:40] LABS: Partial Thromboplastin Time 34.6 Seconds (22.3-36.8)
[2025-01-30 05:46] LABS: Alanine Aminotransferase 287 U/L (6-35); Albumin Level 3.8 g/dL (3.5-5.1); Alkaline Phosphatase 265 U/L (38-126); Anion Gap 8 mmol/L (4-12); Aspartate Amino Transferase 134 U/L (14-36); Bilirubin,Total 0.7 mg/dL (0.2-1.3); Blood Urea Nitrogen 38 mg/dL (7-17); Calcium 9.3 mg/dL (8.4-10.2); Carbon Dioxide 21 mmol/L (22-30); Chloride 109 mmol/L (98-107); Estimated CRCL calculation 50 ml/min; Estimated Glomerular Filt Rate 52; Glucose 104 mg/dL (65-110); Potassium 3.1 mmol/L (3.4-5.0); Sodium 138 mmol/L (137-145); Total Protein 7.3 g/dL (6.3-8.2)
[2025-01-30 06:00] VITALS: BP 109/65; PULSE 86; RESP 16; TEMP 37.2; O2SAT 92
[2025-01-30 08:00] VITALS: PULSE 82
[2025-01-30] MEDS: POTASSIUM CHLORIDE INJ 40 MEQ in SODIUM CHLORIDE 0.9% IV 500 ML 130 MEQ IVPB (08:03)
--- NOTE | 2025-01-30 08:53 | P.PNIM_ITS ---
Progress Note: A&P Assessment and Plan (1) Cholelithiasis and cholecystitis with obstruction: Qualifiers: Cholelithiasis location: gallbladder Cholecystitis acuity: acute Qualified Code(s): K80.01 - Calculus of gallbladder with acute cholecystitis with obstruction Code(s): K80.19 - Calculus of gallbladder with other cholecystitis with obstruction Status: Acute Assessment and Plan: - presented with 1 week of epigastric abdominal pain, nausea/vomiting -CT A/P with large gallstone impacting the neck of the gallbladder with distended gallbladder and edema suggestive of a acute cholecystitis, extrahepatic bile ducts are borderline in diameter -afebrile, initial WBC 14 -improved today -started on IV Zosyn -NPO -IV fluids and pain -surgery consult (2) Transaminitis: Code(s): R74.01 - Elevation of levels of liver transaminase levels Status: Acute Assessment and Plan: - admit AST 224, ALT 398, alk phos 330. T bili WNL - likely secondary to above - improving today - trend CMP (3) Acute kidney injury: Code(s): N17.9 - Acute kidney failure, unspecified Status: Acute Assessment and Plan: - baseline Cr 0.6 - admit Cr 1.15 - likely prerenal due to dehydration - improving with IV fluids (4) Dehydration: Code(s): E86.0 - Dehydration Status: Acute Assessment and Plan: - continue IV fluids (5) Acute hypokalemia: Code(s): E87.6 - Hypokalemia Status: Acute Assessment and Plan: -K+ 3.1 - additional IV replacement ordered Subjective Date/time seen: 01/30/25 08:53 Interval history: Patient seen and examined at bedside. Review of Systems Review of Systems: 12 systems were reviewed with pertinent positives and negatives per HPI. Except as documented in the HPI, all other systems were reviewed and are negative. Exam Narrative: General: NAD Eyes: EOMI ENT: neck supple Cardiovascular: Regular rate and rhythm Respiratory: Clear to auscultation, respirations even and unlabored on RA Gastrointestinal: Soft, non tender Genitourinary: no suprapubic tenderness Musculoskeletal: No edema Skin: warm, dry Neuro: Alert. Psych: Mood appropriate Objective Data Vital Signs Vital Signs: Vital Signs - 24 hr 01/29/25 14:23 01/29/25 17:47 01/29/25 20:00 Temperature 97.6 F Pulse Rate 91 87 Respiratory Rate 18 14 Blood Pressure 122/72 120/54 L Pulse Oximetry 98 98 Oxygen Delivery Room Air Room Air 01/29/25 20:00 01/29/25 21:48 01/30/25 00:00 Temperature 98.5 F Pulse Rate 101 H 83 99 Respiratory Rate 18 Blood Pressure 120/67 Pulse Oximetry 100 Oxygen Delivery 01/30/25 04:00 01/30/25 06:00 01/30/25 08:00 Temperature 99.0 F Pulse Rate 86 86 Respiratory Rate 16 Blood Pressure 109/65 Pulse Oximetry 92 Oxygen Delivery Room Air Intake/Output Intake/Output: Intake & Output 01/27/25 01/28/25 01/29/25 01/30/25 23:59 23:59 23:59 23:59 Intake Total 1050 1814.6 Output Total 500 Balance 1050 1314.6 Meds/Results Medications: Active Medications Generic Name Dose Route Start Last Admin Trade Name Freq PRN Reason Stop Dose Admin Enoxaparin Sodium 40 mg 01/31/25 09:00 Enoxaparin 40 Mg/0.4 Ml Syringe SUB-Q DAILY CRYS Piperacillin Sod/Tazobactam 50 mls @ 100 mls/hr 01/30/25 00:00 01/30/25 05:37 Sod 3.375 gm/ Sodium Chloride IVPB Infused Q6H CRYS Infusion Sodium Chloride 1,000 mls @ 100 mls/hr 01/29/25 17:10 01/30/25 08:06 Normal Saline Iv IV CONT 100 mls/hr .Q10H CRYS Administration Potassium Chloride 40 meq/ 520 mls @ 130 mls/hr 01/30/25 07:42 01/30/25 08:03 Sodium Chloride IVPB 01/30/25 11:41 130 mls/hr ONCE ONE Administration Morphine Sulfate 4 mg 01/29/25 21:02 Morphine Sulfate (*Crx) 4 Mg/Ml Inj IV PUSH Q3H PRN Pain Rated 7-10 Ondansetron HCl 4 mg 01/29/25 17:09 Ondansetron Inj 4 Mg/2 Ml Vial IV PUSH Q4H PRN Nausea Radiology Results: ITS Impressions Abdomen/Pelvis CT 01/29/25 16:28 IMPRESSION: 1. Large gallstone impacting neck of the gallbladder with distended gallbladder and edema of the gallbladder wall suggestive of acute cholecystitis. 2. Extrahepatic bile ducts are borderline in diameter in size. Pancreas shows no acute findings. 3. Diverticulosis of distal colon. 4. Severe degenerative disc disease at L2-3 level. Labs Labs: Laboratory Results - last 24 hr 01/29/25 01/29/25 01/29/25 15:22 16:40 16:40 WBC 14.4 H RBC 4.22 Hgb 12.5 Hct 37.8 MCV 89.6 MCH 29.6 MCHC 33.1 RDW 15.4 H Plt Count 289 MPV 10.5 H Immature Gran % (Auto) 0.6 H Neut % (Auto) 78.5 H Lymph % (Auto) 12.9 L [place] % (Auto) 6.7 Eos % (Auto) 1.0 Baso % (Auto) 0.3 Lymph # (Auto) 1.86 [place] # (Auto) 1.0 H Eos # (Auto) 0.2 Baso # (Auto) 0.0 Abs Immat Gran (auto) 0.08 H Absolute Neuts (auto) 11.3 H Absolute Nucleated RBC 0.000 Nucleated RBC % 0.0 PT INR APTT Sodium 136 L Potassium 2.9 L Chloride 98 Carbon Dioxide 21 L Anion Gap 17 H BUN 60 H D Creatinine 1.15 H Estim Creat Clear Calc 45 Estimated GFR 47 L Glucose 112 H Lactic Acid 1.2 Calcium 10.3 H Magnesium 2.6 H Cancelled Total Bilirubin 0.8 AST 224 H ALT 398 H Alkaline Phosphatase 330 H Troponin I < 0.012 Total Protein 8.3 H Albumin 4.5 Lipase 254 Urine Color Yellow Urine Appearance Clear Urine pH 5.0 Ur Specific [place] 1.020 Urine Protein Trace Urine Glucose (UA) Negative Urine Ketones Trace H Ur Blood (Man) Negative Urine Nitrate Negative Urine Bilirubin Negative Urine Urobilinogen 1.0 Add Ur Microanalysis Reviewed Leukocyte Esterase Rfl 1+ H Urine RBC 0-2 Urine WBC 0-5 Ur Squamous Epith Cells None seen Urine Bacteria None seen Urine Casts 3-5 01/30/25 01/30/25 05:14 05:15 WBC 9.5 RBC 3.58 L Hgb 10.6 L Hct 32.3 L MCV 90.2 MCH 29.6 MCHC 32.8 RDW 15.4 H Plt Count 220 MPV 9.9 Immature Gran % (Auto) Neut % (Auto) Lymph % (Auto) [place] % (Auto) Eos % (Auto) Baso % (Auto) Lymph # (Auto) [place] # (Auto) Eos # (Auto) Baso # (Auto) Abs Immat Gran (auto) Absolute Neuts (auto) Absolute Nucleated RBC Nucleated RBC % PT 14.8 H INR 1.2 APTT 34.6 Sodium 138 Potassium 3.1 L Chloride 109 H Carbon Dioxide 21 L Anion Gap 8 BUN 38 H D Creatinine 1.04 H Estim Creat Clear Calc 50 Estimated GFR 52 L Glucose 104 Lactic Acid Calcium 9.3 Magnesium Total Bilirubin 0.7 AST 134 H ALT 287 H Alkaline Phosphatase 265 H Troponin I Total Protein 7.3 Albumin 3.8 Lipase Urine Color Urine Appearance Urine pH Ur Specific [place] Urine Protein Urine Glucose (UA) Urine Ketones Ur Blood (Man) Urine Nitrate Urine Bilirubin Urine Urobilinogen Add Ur Microanalysis Leukocyte Esterase Rfl Urine RBC Urine WBC Ur Squamous Epith Cells Urine Bacteria Urine Casts Quality VTE Prophylaxis VTE prophylaxis: pharmacologic ordered (Lovenox 40 mg subQ daily to be started on the morning of the )
[2025-01-30 09:15] LABS: Magnesium 2.5 mg/dL (1.6-2.3)
[2025-01-30 12:00] VITALS: PULSE 82
--- NOTE | 2025-01-30 12:56 | P.PNGS_ITS ---
Progress Note: A&P Assessment and Plan (1) Acute cholecystitis: Code(s): K81.0 - Acute cholecystitis Status: Acute Assessment and Plan: * Patient is feeling much better this morning. Denies any abdominal pain, nausea or vomiting. Physical exam benign. White blood cell count has normalized and liver enzymes are down trending. Patient given a low-fat diet today. If she is able to tolerate this, she is surgically stable for discharge with oral antibiotics and follow-up in general surgery office in 2 weeks to discuss interval cholecystectomy. (2) Acute hypokalemia: Code(s): E87.6 - Hypokalemia Status: Acute Assessment and Plan: 3.1 today, up from 2.9 yesterday. Given IV potassium this morning. Continue monitor. (3) Dehydration: Code(s): E86.0 - Dehydration Status: Acute Plan Discussed patient's case and plan of care with Dr. Gupta. Subjective Subjective Date/Time Seen: 01/30/25 12:56 Patient reports: no new complaints, feels better and flatus Interval history: Patient doing well today. Denies any abdominal pain, nausea, or vomiting. Labs stable. WBC normalized. AST/ALT ALP downtrending. Exam Const: General: comfortable and no acute distress GI: Inspection: non-distended GI Palp: Yes Soft to palpation, No Tenderness to palpation present (GI) and No Guarding due to palpation present (GI) Auscultation: normal bowel sounds Skin: General skin exam: normal color Neuro: Speech: normal speech Sensory Exam: normal sensation Extrem: General: normal to inspection Psych: Mental Status: mental status grossly normal Objective Data Vital Signs Vital Signs: Vital Signs - 24 hr 01/29/25 14:23 01/29/25 17:47 01/29/25 20:00 Temperature 97.6 F Pulse Rate 91 87 Respiratory Rate 18 14 Blood Pressure 122/72 120/54 L Pulse Oximetry 98 98 Oxygen Delivery Room Air Room Air 01/29/25 20:00 01/29/25 21:48 01/30/25 00:00 Temperature 98.5 F Pulse Rate 101 H 83 99 Respiratory Rate 18 Blood Pressure 120/67 Pulse Oximetry 100 Oxygen Delivery 01/30/25 04:00 01/30/25 06:00 01/30/25 08:00 Temperature 99.0 F Pulse Rate 86 86 Respiratory Rate 16 Blood Pressure 109/65 Pulse Oximetry 92 Oxygen Delivery Room Air 01/30/25 08:00 01/30/25 12:00 Temperature Pulse Rate 82 82 Respiratory Rate Blood Pressure Pulse Oximetry Oxygen Delivery Intake/Output Intake/Output: Intake & Output 01/27/25 01/28/25 01/29/25 01/30/25 23:59 23:59 23:59 23:59 Intake Total 1050 2384.6 Output Total 500 Balance 1050 1884.6 Meds/Results Medications: Active Medications Generic Name Dose Route Start Last Admin Trade Name Freq PRN Reason Stop Dose Admin Enoxaparin Sodium 40 mg 01/31/25 09:00 Enoxaparin 40 Mg/0.4 Ml Syringe SUB-Q DAILY CRYS Piperacillin Sod/Tazobactam 50 mls @ 100 mls/hr 01/30/25 00:00 01/30/25 12:24 Sod 3.375 gm/ Sodium Chloride IVPB Infused Q6H CRYS Infusion Sodium Chloride 1,000 mls @ 100 mls/hr 01/29/25 17:10 01/30/25 08:06 Normal Saline Iv IV CONT 100 mls/hr .Q10H CRYS Administration Morphine Sulfate 4 mg 01/29/25 21:02 Morphine Sulfate (*Crx) 4 Mg/Ml Inj IV PUSH Q3H PRN Pain Rated 7-10 Ondansetron HCl 4 mg 01/29/25 17:09 Ondansetron Inj 4 Mg/2 Ml Vial IV PUSH Q4H PRN Nausea Radiology Results: ITS Impressions Abdomen/Pelvis CT 01/29/25 16:28 IMPRESSION: 1. Large gallstone impacting neck of the gallbladder with distended gallbladder and edema of the gallbladder wall suggestive of acute cholecystitis. 2. Extrahepatic bile ducts are borderline in diameter in size. Pancreas shows no acute findings. 3. Diverticulosis of distal colon. 4. Severe degenerative disc disease at L2-3 level. Labs Labs: Laboratory Results - last 24 hr 01/29/25 01/29/25 01/29/25 15:22 16:40 16:40 WBC 14.4 H RBC 4.22 Hgb 12.5 Hct 37.8 MCV 89.6 MCH 29.6 MCHC 33.1 RDW 15.4 H Plt Count 289 MPV 10.5 H Immature Gran % (Auto) 0.6 H Neut % (Auto) 78.5 H Lymph % (Auto) 12.9 L [place] % (Auto) 6.7 Eos % (Auto) 1.0 Baso % (Auto) 0.3 Lymph # (Auto) 1.86 [place] # (Auto) 1.0 H Eos # (Auto) 0.2 Baso # (Auto) 0.0 Abs Immat Gran (auto) 0.08 H Absolute Neuts (auto) 11.3 H Absolute Nucleated RBC 0.000 Nucleated RBC % 0.0 PT INR APTT Sodium 136 L Potassium 2.9 L Chloride 98 Carbon Dioxide 21 L Anion Gap 17 H BUN 60 H D Creatinine 1.15 H Estim Creat Clear Calc 45 Estimated GFR 47 L Glucose 112 H Lactic Acid 1.2 Calcium 10.3 H Magnesium 2.6 H Cancelled Total Bilirubin 0.8 AST 224 H ALT 398 H Alkaline Phosphatase 330 H Troponin I < 0.012 Total Protein 8.3 H Albumin 4.5 Lipase 254 Urine Color Yellow Urine Appearance Clear Urine pH 5.0 Ur Specific [place] 1.020 Urine Protein Trace Urine Glucose (UA) Negative Urine Ketones Trace H Ur Blood (Man) Negative Urine Nitrate Negative Urine Bilirubin Negative Urine Urobilinogen 1.0 Add Ur Microanalysis Reviewed Leukocyte Esterase Rfl 1+ H Urine RBC 0-2 Urine WBC 0-5 Ur Squamous Epith Cells None seen Urine Bacteria None seen Urine Casts 3-5 01/30/25 01/30/25 05:14 05:15 WBC 9.5 RBC 3.58 L Hgb 10.6 L Hct 32.3 L MCV 90.2 MCH 29.6 MCHC 32.8 RDW 15.4 H Plt Count 220 MPV 9.9 Immature Gran % (Auto) Neut % (Auto) Lymph % (Auto) [place] % (Auto) Eos % (Auto) Baso % (Auto) Lymph # (Auto) [place] # (Auto) Eos # (Auto) Baso # (Auto) Abs Immat Gran (auto) Absolute Neuts (auto) Absolute Nucleated RBC Nucleated RBC % PT 14.8 H INR 1.2 APTT 34.6 Sodium 138 Potassium 3.1 L Chloride 109 H Carbon Dioxide 21 L Anion Gap 8 BUN 38 H D Creatinine 1.04 H Estim Creat Clear Calc 50 Estimated GFR 52 L Glucose 104 Lactic Acid Calcium 9.3 Magnesium 2.5 H Total Bilirubin 0.7 AST 134 H ALT 287 H Alkaline Phosphatase 265 H Troponin I Total Protein 7.3 Albumin 3.8 Lipase Urine Color Urine Appearance Urine pH Ur Specific [place] Urine Protein Urine Glucose (UA) Urine Ketones Ur Blood (Man) Urine Nitrate Urine Bilirubin Urine Urobilinogen Add Ur Microanalysis Leukocyte Esterase Rfl Urine RBC Urine WBC Ur Squamous Epith Cells Urine Bacteria Urine Casts
[2025-01-30 14:00] VITALS: BP 121/48; PULSE 88; RESP 18; TEMP 36.6; O2SAT 94
--- NOTE | 2025-01-30 15:03 | P.DS_ITS ---
DS: Admitting Diagnosis Discharge Date 01/30/25 Admitting Diagnosis - cholelithiasis with cholecystitis DS: Discharge Diagnosis Discharge Diagnosis (1) Cholelithiasis and cholecystitis with obstruction: Qualifiers: Cholelithiasis location: gallbladder Cholecystitis acuity: acute Qualified Code(s): K80.01 - Calculus of gallbladder with acute cholecystitis with obstruction Code(s): K80.19 - Calculus of gallbladder with other cholecystitis with obstruction Status: Acute (2) Transaminitis: Code(s): R74.01 - Elevation of levels of liver transaminase levels Status: Acute (3) Acute kidney injury: Code(s): N17.9 - Acute kidney failure, unspecified Status: Acute (4) Dehydration: Code(s): E86.0 - Dehydration Status: Acute (5) Acute hypokalemia: Code(s): E87.6 - Hypokalemia Status: Acute DS: Summary Hospital Course Reason for hospitalization: -cholelithiasis with cholecystitis Hospital Course: The patient is a 69-year-old female admitted with acute cholecystitis secondary to a large gallstone impacted in the neck of the gallbladder, as confirmed by CT imaging. On admission, she presented with a one-week history of epigastric abdominal pain, nausea, vomiting, and poor oral intake, along with laboratory evidence of leukocytosis, transaminitis, acute kidney injury, dehydration, and hypokalemia. She was started on IV fluids, empiric antibiotics (Zosyn), and potassium replacement. General surgery was consulted, and the patient was managed non-operatively during this admission. Over the course of her hospitalization, her abdominal pain and gastrointestinal symptoms resolved, her white blood cell count and liver enzymes downtrended, and her renal function improved with supportive care. She was advanced to a low-fat diet, which she tolerated without pain or nausea. At the time of discharge, she was clinically stable and afebrile, with improving laboratory parameters. She was discharged on oral Augmentin and Flagyl, with instructions to follow up with general surgery in two weeks to schedule an interval cholecystectomy. She was also instructed to have a repeat comprehensive metabolic panel to monitor liver enzymes and potassium. She was instructed to hold her lisinopril, indapamide until repeat CMP due to VINAY which was improving on day of discharge. Also instructed to hold atorvastatin insulin repeat liver enzymes obtained She was discharged with a three-day course of daily potassium supplementation. Patient is discharged home stable condition. Strict return precautions discussed. Status at Discharge Functional status at discharge: independent ambulation Time Spent with Patient Time attestation: Total time spent providing and/or coordinating discharge services: Time spent: Greater than 30 minutes Exam Narrative: General: NAD Eyes: EOMI ENT: neck supple Cardiovascular: Regular rate and rhythm Respiratory: Clear to auscultation, respirations even and unlabored on RA Gastrointestinal: Soft, non tender Genitourinary: no suprapubic tenderness Musculoskeletal: No edema Skin: warm, dry Neuro: Alert. Psych: Mood appropriate DS: Data Data Completed and Pending Completed studies during hospitalization: ITS Impressions Abdomen/Pelvis CT 01/29/25 16:28 IMPRESSION: 1. Large gallstone impacting neck of the gallbladder with distended gallbladder and edema of the gallbladder wall suggestive of acute cholecystitis. 2. Extrahepatic bile ducts are borderline in diameter in size. Pancreas shows no acute findings. 3. Diverticulosis of distal colon. 4. Severe degenerative disc disease at L2-3 level. Labs on day of discharge: Labs from last 24 hours 01/30/25 01/30/25 01/29/25 05:15 05:14 16:40 WBC 9.5 RBC 3.58 L Hgb 10.6 L Hct 32.3 L MCV 90.2 MCH 29.6 MCHC 32.8 RDW 15.4 H Plt Count 220 MPV 9.9 Immature Gran % (Auto) Neut % (Auto) Lymph % (Auto) Noble % (Auto) Eos % (Auto) Baso % (Auto) Lymph # (Auto) Noble # (Auto) Eos # (Auto) Baso # (Auto) Abs Immat Gran (auto) Absolute Neuts (auto) Absolute Nucleated RBC Nucleated RBC % PT 14.8 H INR 1.2 APTT 34.6 Sodium 138 Potassium 3.1 L Chloride 109 H Carbon Dioxide 21 L Anion Gap 8 BUN 38 H D Creatinine 1.04 H Estim Creat Clear Calc 50 Estimated GFR 52 L Glucose 104 Lactic Acid Calcium 9.3 Magnesium 2.5 H Cancelled Total Bilirubin 0.7 AST 134 H ALT 287 H Alkaline Phosphatase 265 H Troponin I < 0.012 Total Protein 7.3 Albumin 3.8 Lipase Urine Color Urine Appearance Urine pH Ur Specific [place] Urine Protein Urine Glucose (UA) Urine Ketones Ur Blood (Man) Urine Nitrate Urine Bilirubin Urine Urobilinogen Add Ur Microanalysis Leukocyte Esterase Rfl Urine RBC Urine WBC Ur Squamous Epith Cells Urine Bacteria Urine Casts 01/29/25 01/29/25 16:40 15:22 WBC 14.4 H RBC 4.22 Hgb 12.5 Hct 37.8 MCV 89.6 MCH 29.6 MCHC 33.1 RDW 15.4 H Plt Count 289 MPV 10.5 H Immature Gran % (Auto) 0.6 H Neut % (Auto) 78.5 H Lymph % (Auto) 12.9 L Noble % (Auto) 6.7 Eos % (Auto) 1.0 Baso % (Auto) 0.3 Lymph # (Auto) 1.86 Noble # (Auto) 1.0 H Eos # (Auto) 0.2 Baso # (Auto) 0.0 Abs Immat Gran (auto) 0.08 H Absolute Neuts (auto) 11.3 H Absolute Nucleated RBC 0.000 Nucleated RBC % 0.0 PT INR APTT Sodium 136 L Potassium 2.9 L Chloride 98 Carbon Dioxide 21 L Anion Gap 17 H BUN 60 H D Creatinine 1.15 H Estim Creat Clear Calc 45 Estimated GFR 47 L Glucose 112 H Lactic Acid 1.2 Calcium 10.3 H Magnesium 2.6 H Total Bilirubin 0.8 AST 224 H ALT 398 H Alkaline Phosphatase 330 H Troponin I Total Protein 8.3 H Albumin 4.5 Lipase 254 Urine Color Yellow Urine Appearance Clear Urine pH 5.0 Ur Specific [place] 1.020 Urine Protein Trace Urine Glucose (UA) Negative Urine Ketones Trace H Ur Blood (Man) Negative Urine Nitrate Negative Urine Bilirubin Negative Urine Urobilinogen 1.0 Add Ur Microanalysis Reviewed Leukocyte Esterase Rfl 1+ H Urine RBC 0-2 Urine WBC 0-5 Ur Squamous Epith Cells None seen Urine Bacteria None seen Urine Casts 3-5 Discharge Plan Discharge Attending physician on discharge: Nannette Lara Consulting providers: Cong Gupta; Yana Burgos Discharging Clinician: Yana Burgos Anticipated Discharge Date/Time: 01/30/25 14:44 Patient Disposition: Home Activity: unlimited Diet: low fat Discharge Instructions: Please call general surgery office at to schedule a follow up appointment in 2 weeks. If you develop any new or worsening pain, vomiting, or fever > 101 degrees call general surgery office or go to the emergency department. You were admitted for?cholelithiasis?(gallstones) and?acute kidney injury (VINAY), likely due to dehydration. Both conditions have improved with treatment. You are being discharged with oral antibiotics and instructions for ongoing care. Medications: * Continue taking?Augmentin?and?Flagyl?as prescribed for your gallbladder infection. * Hold indapamide, lisinopril, and atorvastatin?until your kidney function and liver enzymes are rechecked. These medications can affect your kidneys/liver and should be restarted only after your labs have improved. * You have been given potassium supplements for a few more days due to low potassium. Your repeat lab work will include a recheck potassium level. Hydration and Diet: * Drink plenty of fluids unless otherwise instructed. Aim for clear urine and avoid dehydration. * Eat a low-fat diet to reduce stress on your gallbladder. Follow-Up: * Repeat laboratory tests?(kidney function and liver enzymes) in?5-7 days?to monitor your recovery. * Follow up with your primary care provider?after your labs are done to review results and discuss restarting your medications. * See general surgery in?2 weeks?to schedule your gallbladder removal (interval cholecystectomy). Return Precautions: Contact your doctor or return to the emergency department if you experience: * Severe abdominal pain?that does not improve or gets worse * Fever?(temperature above 101?F/38.5?C) * Jaundice?(yellowing of your skin or eyes) * Persistent nausea or vomiting * Dark urine or pale stools * Confusion, weakness, or decreased urine output * Swelling, shortness of breath, or chest pain These symptoms may indicate worsening infection, kidney problems, or other complications. Other Instructions: * Take all medications as directed. * Do not drink alcohol while taking metronidazole. * If you develop a rash, difficulty breathing, or swelling, stop the medication and seek medical attention immediately. If you have any questions or concerns, contact your healthcare provider. Patient Instructions: Antibiotic Form Patient Language: Citizen Of [place] Stand Alone Forms: General Discharge Information Follow-up/Referrals: Cong Gupta DO [Physician, General Surgery] - Call for Appointment Referral Note: 2 weeks. Discharge Medications: New amoxicillin-pot clavulanate 875-125 mg tablet 1 tablet PO Q12H Qty: 14 0RF metronidazole 500 mg tablet 500 mg PO Q8H Qty: 21 0RF potassium chloride [Klor-Con M20] 20 mEq tablet,ER particles/crystals 20 meq PO DAILY Qty: 3 0RF Continued citalopram 10 mg tablet 10 mg PO DAILY allopurinol 300 mg tablet 300 mg PO HS Held atorvastatin 20 mg tablet 20 mg PO DAILY Hold Instructions: Resume on 02/06/25. Hold until your liver enzymes are rechecked and you follow-up with your PCP. Atorvastatin can elevate your liver enzymes. lisinopril 40 mg tablet 40 mg PO DAILY@0800 Hold Instructions: Resume on 02/06/25. Hold until labs rechecked due to acute kidney injury. indapamide 2.5 mg tablet 2.5 mg PO DAILY Hold Instructions: Resume on 02/06/25. Hold until follow-up with PCP due to concerns for dehydration. Other Ambulatory Orders: Comprehensive Metabolic Panel (Routine) Timeframe: 5 Days Location: Determined by Patient Ordered By: Yana Burgos Date of admission: 01/30/25 10:24 Primary Care Provider: DavinKatie Admitting Provider: Ham Dougherty Attending physician on admission: Ham Dougherty Condition: Stable
== END 2025-01-30 15:58 | disposition home or self-care (01) ==
LOC: ANHED 17:04 → ANH3MEDSUR 01-30 06:56
PROVIDERS: Physician Assistant; Surgery; Admitting Provider Internal Medicine; Emergency Provider Emergency Medicine; PCP Physician Assistant; Visit Provider Internal Medicine
DX: K80.01 Calculus of gallbladder with acute cholecystitis with obstruction (principal); R65.10 Systemic inflammatory response syndrome (SIRS) of non-infectious origin without acute organ dysfunction; R74.01 Elevation of levels of liver transaminase levels; I10 Essential (primary) hypertension; E87.6 Hypokalemia; R82.90 Unspecified abnormal findings in urine; E86.0 Dehydration; N17.9 Acute kidney failure, unspecified; E78.5 Hyperlipidemia, unspecified; M51.369 Other intervertebral disc degeneration, lumbar region without mention of lumbar back pain or lower extremity pain; M10.9 Gout, unspecified; F41.9 Anxiety disorder, unspecified; E66.9 Obesity, unspecified; Z68.36 Body mass index [BMI] 36.0-36.9, adult; Z79.52 Long term (current) use of systemic steroids; Z83.6 Family history of other diseases of the respiratory system; Z82.49 Family history of ischemic heart disease and other diseases of the circulatory system
CPT/HCPCS: 36415; 74177; 80053; 81001; 83605; 83690; 83735; 84484; 85025; 85027; 85610; 85730; 87086; 93005; 96361; 96365; 96366; 96367; 96375; 99285; G0378; J2405; J2543; J3480; J7030; J7040; Q9967